=== PATIENT | female | born 1980 | race Caucasian/White ===

== ENCOUNTER → 2018-06-13 | Outpatient (CLI) | payer SELFPAY ==
[~2018-06-13] MED LIST: CATHETER FLUSH 10 ML SYR IV PRN; HOLD METFORMIN - RECEIVED CONTRAST 20 ML VIAL IV SCH; IOHEXOL 350 MG/ML 100 ML (OMNIPAQUE 350) VIAL IV ONE; NS 50 ML (IVPB) BAG IV ONE
[2018-06-13 09:56] LABS: CREATININE SERUM 0.57 MG/DL (0.60-1.30)
--- NOTE | 2018-06-13 11:50 | Diagnostic Imaging Report ---
PROCEDURE: CT abdomen and pelvis with and without contrast. TECHNIQUE: Precontrast acquisitions were acquired through the abdomen and pelvis. Multiple contiguous axial images were obtained through the abdomen and pelvis after the administration of intravenous contrast. Auto Exposure Controls were utilized during the CT exam to meet ALARA standards for radiation dose reduction. INDICATION: Right sided abdominal pain. COMPARISON: No prior studies are available for comparison. FINDINGS: The lung bases are clear. The liver demonstrates generalized low density consistent with hepatic steatosis. No discrete liver mass is seen. The gallbladder is surgically absent. Extrahepatic bile duct is prominent but likely owing to post cholecystectomy. The pancreas and spleen are unremarkable. No adrenal mass is identified. There is a 19 mm low-density in the left kidney suggestive of a cyst. No hydronephrosis is identified. Aorta is nonaneurysmal. No central retroperitoneal or mesenteric lymphadenopathy is seen. The small and large bowel loops appear to be normal in caliber. No obstruction is seen. The appendix is visualized in the right lower quadrant and has a normal appearance. There is no free fluid identified. There does appear to be mild diverticulosis of the sigmoid colon but no evidence of acute diverticulitis. The bladder is unremarkable. Uterus is surgically absent. No pelvic lymphadenopathy is seen. IMPRESSION: 1. Hepatic steatosis. 2. Small left renal cyst. 3. Uncomplicated diverticulosis. Dictated by: Dictated on workstation # [id number]
== END ==
LOC: RAD FS 08:09
PROVIDERS: ATTEND Nurse Practitioner
DX: K76.0 Fatty (change of) liver, not elsewhere classified (principal); K57.30 Diverticulosis of large intestine without perforation or abscess without bleeding; N28.1 Cyst of kidney, acquired; Z90.49 Acquired absence of other specified parts of digestive tract
CPT/HCPCS: 36415; 74178; 82565

== ENCOUNTER 2018-08-07 19:57 | Emergency (ER) | payer SELFPAY ==
[~2018-08-07] VITALS: Ht 154.9 cm; Wt 84.8 kg
[2018-08-07] MEDS ORDERED: ONDANSETRON 4 MG/2 ML (SDV) Z0FRAN IVP STA (20:34)
[2018-08-07 20:35] LABS: BILIRUBIN,URINE NEGATIVE (NEGATIVE); CLARITY,URINE CLEAR; COLOR,URINE YELLOW; GLUCOSE, URINE (UA) NEGATIVE (NEGATIVE); HCG,QUALITATIVE URINE NEGATIVE (NEGATIVE); KETONES,URINE NEGATIVE (NEGATIVE); LEUKOCYTE ESTERASE ,URINE NEGATIVE (NEGATIVE); NITRITE,URINE NEGATIVE (NEGATIVE); PROTEIN,URINE NEGATIVE (NEGATIVE); RBC,URINE RARE /HPF; UROBILINOGEN,URINE 0.2 MG/DL (NORMAL)
[2018-08-07 20:45] LABS: HEMATOCRIT 37 % (35-52); MEAN CORPUSCULAR HEMOGLOBIN 28 PG (25-34); MEAN CORPUSCULAR VOLUME 86 FL (80-99); WHITE BLOOD COUNT 9.9 10^3/uL (4.3-11.0)
[2018-08-07] MEDS ORDERED: NS IV 1000 ML 1,000 ML IV SCH (20:45)
[2018-08-07 20:46] LABS: BASOPHILS # (AUTO) 0.1 10^3/uL (0.0-0.1); BASOPHILS % (AUTO) 1 % (0-10); EOSINOPHILS # (AUTO) 0.4 10^3/uL (0.0-0.3); EOSINOPHILS % (AUTO) 4 % (0-10); LYMPHOCYTES # (AUTO) 3.8 X 10^3 (1.0-4.0); LYMPHOCYTES % (AUTO) 38 % (12-44); MEAN CORPUSCULAR HGB CONC 33 G/DL (32-36); MEAN PLATELET VOLUME 8.9 FL (7.4-10.4); MONOCYTES # (AUTO) 0.5 X 10^3 (0.0-1.0); MONOCYTES % (AUTO) 5 % (0-12); NEUTROPHILS # (AUTO) 5.2 X 10^3 (1.8-7.8); NEUTROPHILS % (AUTO) 53 % (42-75); PLATELET COUNT 297 10^3/uL (130-400); RED CELL DISTRIBUTION WIDTH 13.8 % (10.0-14.5)
[2018-08-07] MEDS ORDERED: SERT50TA2 PO (20:47)
[2018-08-07] MEDS ORDERED: DULA0.75 SQ (20:47)
[2018-08-07 20:55] LABS: ALKALINE PHOSPHATASE 84 U/L (40-136); BILIRUBIN,TOTAL 0.2 MG/DL (0.1-1.0); BUN/CREATININE RATIO 19; CALCIUM 9.5 MG/DL (8.5-10.1); CARBON DIOXIDE 24 MMOL/L (21-32); CHLORIDE 101 MMOL/L (98-107); CREATININE SERUM 0.62 MG/DL (0.60-1.30); GFR ESTIMATED > 60; GLUCOSE 185 MG/DL (70-105); POTASSIUM 3.7 MMOL/L (3.6-5.0); SODIUM 140 MMOL/L (135-145)
[2018-08-07 20:56] LABS: ALANINE AMINOTRANSFERASE 19 U/L (0-55); ALBUMIN 4.5 GM/DL (3.2-4.5); LIPASE 22 U/L (8-78); TOTAL PROTEIN 7.5 GM/DL (6.4-8.2)
--- NOTE | 2018-08-07 21:05 | ED Abdominal Pain ---
General Chief Complaint: Abdominal/GI Problems Stated Complaint: NAUSEA, VOMITING, RT RIB PAIN, DIZZY Nursing Triage Note: PATIENT AMBULATORY TO ER WITH COMPLAINT OF RIGHT QUADRANT ABDOMINAL PAIN THAT BEGAN AT 08:00 AM TODAY. PATIENT DESCRIBES THE PAIN A BURNING/STABBING PAIN TO RIGHT ABDOMEN THAT RADIATES INTO THE RIGHT UPPER BACK/SHOULDER AREA. PATIENT HAS HAD NAUSEA AND VOMITING AND IS COMPLAINING OF DIZZINESS. Sepsis Screen: No Definite Risk Source of Information: Patient History of Present Illness Date Seen by Provider: August 07, 2018 Time Seen by Provider: 21:05 Initial Comments 38-year-old female presenting with complaints of right-sided abdominal pain. She states the pain radiates up into her shoulder and arm. She has had severe waves of pain at times. She also is having nausea and vomiting that started around 5:30 tonight. She states that she has some chronic GI issues and her bowel movements go from diarrhea to constipation and back. She also has early satiety. She has been having increased pain that was not improving with Tylenol or ibuprofen over the last few days. And then the pain was more severe this evening. She denies any fever or chills. She states that she also feels dizziness and lightheaded at times. She reports having similar pain in the past few months but not been able to find an answer for cause of the pain. Also her pain had not been as severe as it is today. Allergies and Home Medications Allergies Coded Allergies: levofloxacin (Unverified Adverse Reaction, Intermediate, VOMITS BLOOD, 08/07/18) Uncoded Allergies: DEMEROL (Allergy, Severe, HIVES, 08/07/18) Home Medications Dulaglutide 0.75 Mg/0.5 Ml Pen.injctr, 0.75 MG SQ DAILY, (Reported) Hydrocodone Bit/Acetaminophen 1 Tab Tab, 1 EACH PO Q6H PRN for PAIN-MODERATE Prescribed by: GARO Ramirez ENNYDIART on 08/07/182240 Ondansetron 4 Mg Tab.rapdis, 4 MG PO Q6H PRN for NAUSEA/VOMITING Prescribed by: GARO FISHMANRT on 08/07/182240 Sertraline HCl 50 Mg Tablet, 50 MG PO DAILY, (Reported) Patient Home Medication List Home Medication List Reviewed: Yes Review of Systems Review of Systems Constitutional: No chills; dizziness; No fever; malaise EENTM: No Symptoms Reported Respiratory: No Symptoms Reported Cardiovascular: No Symptoms Reported Gastrointestinal: See HPI, Abdominal Pain, Diarrhea (pulse pain between diarrhea and constipation), Nausea, Vomiting Genitourinary: Denies Drainage, Denies Frequency; Flank Pain; Denies Hematuria Musculoskeletal: other (right flank pain going up into the shoulder and arm) Skin: rash (having areas of rash that her itching and then bruise up on her. This is been going on for the last week or so.) Psychiatric/Neurological: No Symptoms Reported Endocrine: No Symptoms Reported Past Gvhatsu-Zwgjsi-Ajfctp Hx Past Med/Social Hx: Reviewed Nursing Past Med/Soc Hx Patient Social History Alcohol Use: Denies Use Recreational Drug Use: No Smoking Status: Current Everyday Smoker Type Used: Cigarettes 2nd Hand Smoke Exposure: Yes Recent Foreign Travel: No Contact w/Someone Who Travel: No Recent Infectious Disease Expo: No Recent Hopitalizations: No Seasonal Allergies Seasonal Allergies: No Past Medical History Surgeries: Yes Abdominal, Gallbladder, Hysterectomy, 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 Respiratory: No 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 (ENLARGED RIGHT HEART-PFO) REPLACER History: Hysterectomy, 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 Genitourinary: Yes (RIGHT KIDNEY DEFORMITY) Kidney Stones Gastrointestinal: Yes (ENLARGED LIVER) Diverticulosis Endocrine: Yes Diabetes, Non-Insulin dep HEENT: No Cancer: Yes Cervical Did You Recieve Any Treatments: No What Type of Treatment Did You: Surgical Intervention Psychosocial: No Integumentary: No Blood Disorders: No Physical Exam Vital Signs Vital Signs - First Documented 08/07/18 20:07 Temp 96.5 Pulse 90 Resp 18 B/P (MAP) 123/67 (85) Pulse Ox 97 O2 Delivery Room Air Capillary Refill : Less Than 3 Seconds Height/Weight/BMI Height: 5'1.00" Weight: 187lbs. oz. 84.786946ki; BMI Method:Actual General Appearance: WD/WN, no apparent distress HEENT: normal ENT inspection, pharynx normal Neck: non-tender, supple Respiratory: chest non-tender, lungs clear, normal breath sounds, no respiratory distress, no accessory muscle use Cardiovascular: normal peripheral pulses, regular rate, rhythm Gastrointestinal: soft, no pulsatile mass, abnormal bowel sounds (hyperactive), guarding; No rebound; tenderness (right upper quadrant) Rectal: deferred Extremities: normal range of motion, non-tender, normal inspection, no pedal edema, no calf tenderness Back: no CVA tenderness Neurologic/Psychiatric: alert, normal mood/affect, oriented x 3 Skin: normal color, warm/dry Progress/Results/Core Measures Results/Orders Lab Results Laboratory Tests Test 08/07/18 20:18 08/07/18 20:27 Range/Units Urine Color YELLOW Urine Clarity CLEAR Urine pH 6.0 5-9 Urine Specific Ruby <1.005 1.016-1.022 Urine Protein NEGATIVE NEGATIVE Urine Glucose (UA) NEGATIVE NEGATIVE Urine Ketones NEGATIVE NEGATIVE Urine Nitrite NEGATIVE NEGATIVE Urine Bilirubin NEGATIVE NEGATIVE Urine Urobilinogen 0.2 NORMAL MG/DL Urine Leukocyte Esterase NEGATIVE NEGATIVE Urine RBC (Auto) TRACE H NEGATIVE Urine RBC RARE /HPF Urine WBC NONE /HPF Urine Squamous Epithelial Cells 2-5 /HPF Urine Crystals NONE /LPF Urine Bacteria NONE /HPF Urine Casts NONE /LPF Urine Mucus NEGATIVE /LPF Urine Culture Indicated NO Urine Test NEGATIVE NEGATIVE White Blood Count 9.9 4.3-11.0 10^3/uL Red Blood Count 4.25 L 4.35-5.85 10^6/uL Hemoglobin 12.0 11.5-16.0 G/DL Hematocrit 37 35-52 % Mean Corpuscular Volume 86 80-99 FL Mean Corpuscular Hemoglobin 28 25-34 PG Mean Corpuscular Hemoglobin Concent 33 32-36 G/DL Red Cell Distribution Width 13.8 10.0-14.5 % Platelet Count 297 130-400 10^3/uL Mean Platelet Volume 8.9 7.4-10.4 FL Neutrophils (%) (Auto) 53 42-75 % Lymphocytes (%) (Auto) 38 12-44 % Monocytes (%) (Auto) 5 0-12 % Eosinophils (%) (Auto) 4 0-10 % Basophils (%) (Auto) 1 0-10 % Neutrophils # (Auto) 5.2 1.8-7.8 X 10^3 Lymphocytes # (Auto) 3.8 1.0-4.0 X 10^3 Monocytes # (Auto) 0.5 0.0-1.0 X 10^3 Eosinophils # (Auto) 0.4 H 0.0-0.3 10^3/uL Basophils # (Auto) 0.1 0.0-0.1 10^3/uL Sodium Level 140 135-145 MMOL/L Potassium Level 3.7 3.6-5.0 MMOL/L Chloride Level 101 98-107 MMOL/L Carbon Dioxide Level 24 21-32 MMOL/L Anion Gap 15 H 5-14 MMOL/L Blood Urea Nitrogen 12 7-18 MG/DL Creatinine 0.62 0.60-1.30 MG/DL Estimat Glomerular Filtration Rate > 60 BUN/Creatinine Ratio 19 Glucose Level 185 H 70-105 MG/DL Calcium Level 9.5 8.5-10.1 MG/DL Corrected Calcium 9.1 8.5-10.1 MG/DL Total Bilirubin 0.2 0.1-1.0 MG/DL Aspartate Amino Transf (AST/SGOT) 16 5-34 U/L Alanine Aminotransferase (ALT/SGPT) 19 0-55 U/L Alkaline Phosphatase 84 40-136 U/L Total Protein 7.5 6.4-8.2 GM/DL Albumin 4.5 3.2-4.5 GM/DL Lipase 22 8-78 U/L My Orders Orders - GARO PEMBERTON MD Ua Culture If Indicated (08/07/18 20:17) Hcg,Qualitative Urine (08/07/18 20:17) Comprehensive Metabolic Panel (08/07/18 20:34) Lipase (08/07/18 20:34) Ed Iv/Invasive Line Start (08/07/18 20:34) Cbc With Automated Diff (08/07/18 20:34) Ns Iv 1000 Ml (Sodium Chloride 0.9%) (08/07/18 20:45) Ondansetron Injection (Zofran Injectio (08/07/18 20:34) Ketorolac Injection (Toradol Injection) (08/07/18 21:30) Ct Abdomen/Pelvis W (08/07/18 21:18) Iohexol Injection (Omnipaque 350 Mg/Ml 1 (08/07/18 21:30) Received Contrast (Hold Metformin- Contr (08/07/18 21:30) Ns (Ivpb) (Sodium Chloride 0.9% Ivpb Bag (08/07/18 21:30) Morphine Injection (Morphine Injection (08/07/18 22:31) Rx-Ondansetron Po (Rx-Zofran Po) (08/07/18 22:45) Rx-Hydrocodone/Apap 5-325 Mg (Rx-Vicodin (08/07/18 22:45) Medications Given in ED Current Medications Medications Dose Ordered Sig/Tory Route Start Time Stop Time Status Last Admin Dose Admin Acetaminophen/ Hydrocodone Bitart 1 ea Q6H PRN PO 08/07/18 22:45 08/07/18 23:11 DC 08/07/18 22:44 1 EA Iohexol 100 ml ONCE ONCE IV 08/07/18 21:30 08/07/18 21:32 DC 08/07/18 21:36 100 ML Ketorolac Tromethamine 30 mg ONCE ONCE IVP 08/07/18 21:30 08/07/18 21:32 DC 08/07/18 21:27 30 MG Ondansetron HCl 4 mg Q6H PRN PO 08/07/18 22:45 08/07/18 23:11 DC 08/07/18 22:43 4 MG Sodium Chloride 100 ml ONCE ONCE IV 08/07/18 21:30 08/07/18 21:32 DC 08/07/18 21:36 100 ML Vital Signs/I&O 08/07/18 08/07/18 20:07 22:55 Temp 96.5 96.9 Pulse 90 88 Resp 18 16 B/P (MAP) 123/67 (85) 105/69 (81) Pulse Ox 97 98 O2 Delivery Room Air Room Air 08/08/18 00:00 Intake Total 1000 ml Balance 1000 ml Blood Pressure Mean: 85 Progress Progress Note #1: Progress Note Check basic labs and a CT scan of the abdomen and pelvis to further evaluate what might be causing her pain. Try Toradol and IV fluids for pain. Zofran for nausea. Progress Note #2: Progress Note On recheck she states that the nausea is better after the Zofran. The pain was still the same after the Toradol and IV fluid. Reviewed that her labs do not show any acute significant abnormality. Her CBC and chemistry are all stable. Her CT scan did not show any acute pathology to explain her pain. Counseled on follow-up and return precautions. We'll try a few pain pills and have her take Zofran as needed for nausea. Check back with the clinic about possibly getting ultrasound or scope of her stomach and colon to try and further delineate her source of pain. Diagnostic Imaging Diagonstic Imaging: CT Plain Films/CT/US/NM/MRI: abdomen, pelvis Comments Impression: No acute findings to explain patient's pain. Indeterminate left renal and left adrenal gland lesions for which follow-up is recommended. Read by Dr. Cabrera Tan at [phone] and faxed at [phone] Reviewed: Reviewed [place] Study Departure Impression Primary Impression: Right upper quadrant abdominal pain Additional Impression: Nausea and vomiting Qualified Codes: R11.14 - Bilious vomiting Disposition: 01 HOME, SELF-CARE Condition: Stable Departure-Patient Inst. Decision time for Depature: 22:36 Referrals: [facility] (PCP) Primary Care Physician ANKIT WATSON (Family) Primary Care Physician Patient Instructions: Acute Abdomen (Belly Pain), Adult (DC), Flank Pain (DC), Nausea and Vomiting, Adult (DC) Add. Discharge Instructions: Try to stay well hydrated Take medicine for pain as directed to help with your abdominal pain radiating to your shoulder and arm. use the nausea medicine to help keep your stomach settled. Check back with clinic for continued pain/problems and they may need you to have an ultrasound of your liver and abdomen or Colonoscopy/EGD to look for other reasons for your pain. All discharge instructions reviewed with patient and/or family. Voiced understanding. Scripts Ondansetron (Ondansetron Odt) 4 Mg Tab.rapdis 4 MG PO Q6H PRN for NAUSEA/VOMITING for 3 Days, #12 TAB 0 Refills Prov: GARO PEMBERTON MD 08/07/18 Hydrocodone Bit/Acetaminophen (Hydrocodone/Acetaminophen 5/325mg Tablet) 1 Tab Tab 1 EACH PO Q6H PRN for PAIN-MODERATE MDD 10 for 5 Days, #20 TAB 0 Refills Prov: GARO PEMBERTON MD 08/07/18 GARO PEMBERTON MD August 07, 2018 21:05
[2018-08-07] MEDS ORDERED: NS 100 ML (IVPB) BAG IV ONE (21:30)
[2018-08-07] MEDS ORDERED: KETOROLAC 30 MG/ML VIAL IVP ONE (21:30)
[2018-08-07] MEDS ORDERED: HOLD METFORMIN - RECEIVED CONTRAST 20 ML VIAL IV SCH (21:30)
[2018-08-07] MEDS ORDERED: IOHEXOL 350 MG/ML 100 ML (OMNIPAQUE 350) VIAL IV ONE (21:30)
[2018-08-07] MEDS ORDERED: morphine INJ 10 MG/ML 1ML (SYR OR VIAL) IVP STA (22:31)
[2018-08-07] MEDS ORDERED: ACHD5005 PO (22:41)
[2018-08-07] MEDS ORDERED: ONDA4TAB11 PO (22:41)
[2018-08-07] MEDS ORDERED: RX-ONDANSETRON 4 MG ODT (ZOFRAN) PPK #4 PO PRN (22:45)
[2018-08-07] MEDS ORDERED: RX-HYDROCODONE/APAP 5/325 MG #4 TAB PK PO PRN (22:45)
[2018-08-07 22:55] VITALS: BP 105/69
--- NOTE | 2018-08-07 22:56 | NUR ---
PATIENT SENT HOME WITH ZOFRAN ODT X 4 TABLETS AND HYDROCODONE/APAP X 4 TABLETS. PATIENT GIVEN WRITTEN AND VERBAL INSTRUCTIONS ON HOW TO TAKE MEDICATIONS.
--- NOTE | 2018-08-08 07:20 | Diagnostic Imaging Report ---
INDICATION: Right upper quadrant abdominal pain. CT of the abdomen and pelvis obtained with IV contrast bolus with comparison to 06/13/2018. FINDINGS: The visualized portions of the lung bases are clear. There were no pleural fluid collections. There is no free intraperitoneal air. The liver shows mild low-density change compatible with fatty infiltration. There is no focal liver lesion. Patient has had prior cholecystectomy. The spleen and pancreas appear normal. The left adrenal gland shows a small 12 mm nodule which appeared similar on the previous study. Right adrenal gland appears normal. Kidneys bilaterally show no hydronephrosis or overt calculi. There is a small cyst in the left kidney which appears unchanged from the prior study. There is no retroperitoneal mass or adenopathy. There is no ascites or abnormal fluid collection. Patient has had prior hysterectomy. There is no overt bowel obstruction or focal bowel wall thickening. The appendix appears normal. IMPRESSION: No acute process in the abdomen or pelvis. Small left adrenal nodule is stable compared to the prior study. Left renal cyst is unchanged. Dictated by: Dictated on workstation # [id number]
== END 2018-08-07 22:55 | disposition home or self-care (01) ==
LOC: EDUNIT# 19:57 → ER FS 19:58
DX: R10.31 Right lower quadrant pain (principal); R11.2 Nausea with vomiting, unspecified; E11.9 Type 2 diabetes mellitus without complications; F17.210 Nicotine dependence, cigarettes, uncomplicated; Z88.1 Allergy status to other antibiotic agents; Z85.41 Personal history of malignant neoplasm of cervix uteri; Z87.19 Personal history of other diseases of the digestive system; Z88.8 Allergy status to other drugs, medicaments and biological substances; Z98.890 Other specified postprocedural states; Z98.51 Tubal ligation status; Z90.710 Acquired absence of both cervix and uterus; Z87.442 Personal history of urinary calculi
CPT/HCPCS: 36415; 74177; 80053; 81000; 83690; 84703; 85025; 96361; 96374; 96375

== ENCOUNTER 2018-09-18 20:23 | Emergency (ER) | payer SELFPAY ==
[~2018-09-18] VITALS: Ht 154.9 cm; Wt 82.6 kg
[~2018-09-18 20:23] MED LIST changes: +ACHD5005 PO; -CATHETER FLUSH 10 ML SYR IV PRN; +DULA0.75 SQ; -HOLD METFORMIN - RECEIVED CONTRAST 20 ML VIAL IV SCH; -IOHEXOL 350 MG/ML 100 ML (OMNIPAQUE 350) VIAL IV ONE; -NS 50 ML (IVPB) BAG IV ONE; +ONDA4TAB11 PO; +SERT50TA2 PO
--- OUTSIDE RECORDS SUMMARY | 2018-09-18 20:27 | XMS REPORT | Continuity of Care Document ---
Author Organization Unknown Address Unknown Allergies Active Description Code Type Severity Reaction Onset Reported/Identified Relationship to Patient Clinical Status Yes No Allergy Information Available [id number] Drug Allergy Unknown N/A 06/13/2018 Yes DEMEROL DEMEROL Severe HIVES 08/07/2018 Yes levofloxacin [id number] Drug Allergy Moderate VOMITS BLOOD 08/07/2018 Yes hydrocodone [id number] Drug Allergy Mild MIGRAINE HEADAC 08/07/2018 Medications There is no data. 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/O PERFORATION OR AB 06/16/2018 ANKIT WATSON [employer] FARMER Ot K76.0 FATTY (CHANGE OF) LIVER, NOT ELSEWHERE C 06/16/2018 CHAVA WATSONA Becki [employer]UCK FARMER Ot N28.1 CYST OF KIDNEY, ACQUIRED 06/16/2018 CHAVA WATSONA L [employer] FARMER Ot Z90.49 ACQUIRED ABSENCE OF OTHER SPECIFIED PART 06/17/2018 CHAVA WATSONA L [employer] FARMER Ot K57.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 W/O PERFORATION OR AB 06/17/2018 CHAVA WATSONA Becki [employer] FARMER Ot K76.0 FATTY (CHANGE OF) LIVER, NOT ELSEWHERE C 06/17/2018 CHAVA WATSONA Becki [employer]UCK FARMER Ot N28.1 CYST OF KIDNEY, ACQUIRED 06/17/2018 RACHELLETACHAVA ALVARADOA L [employer] FARMER Ot Z90.49 ACQUIRED ABSENCE OF OTHER SPECIFIED PART 06/18/2018 CHAVA WATSONA Becki [employer]UCK FARMER Ot K57.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 W/O PERFORATION OR AB 06/18/2018 CHAVA WATSONA L [employer] FARMER Ot K76.0 FATTY (CHANGE OF) LIVER, NOT ELSEWHERE C 06/18/2018 KELLSTADT, ANKIT L [employer] FARMER Ot N28.1 CYST OF KIDNEY, ACQUIRED 06/18/2018 KELLSTADT, ANKIT L [employer] FARMER Ot Z90.49 ACQUIRED ABSENCE OF OTHER SPECIFIED PART 06/18/2018 KELLSTADT, ANKIT L [employer]UCK FARMER Ot K57.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 W/O PERFORATION OR AB 06/18/2018 KELLSTADT, ANKIT L [employer] FARMER Ot K76.0 FATTY (CHANGE OF) LIVER, NOT ELSEWHERE C 06/18/2018 KELLSTADT ANKIT L [employer] FARMER Ot N28.1 CYST OF KIDNEY, ACQUIRED 06/18/2018 KELLSTADT, ANKIT L [employer] FARMER Ot Z90.49 ACQUIRED ABSENCE OF OTHER SPECIFIED PART 08/07/2018 KELLSTADT, ANKIT L TRUCK FARMER Ot K57.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 W/O PERFORATION OR AB 08/07/2018 KELLSTADT, ANKIT L [employer] FARMER Ot K76.0 FATTY (CHANGE OF) LIVER, NOT ELSEWHERE C 08/07/2018 KELLSTADT, ANKIT L [employer] FARMER Ot N28.1 CYST OF KIDNEY, ACQUIRED 08/07/2018 KELLSTADT, ANKIT L [employer] FARMER Ot Z90.49 ACQUIRED ABSENCE OF OTHER SPECIFIED PART 08/07/2018 KELLSTADT, ANKIT L TRUCK FARMER Ot K57.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 W/O PERFORATION OR AB 08/07/2018 KELLSTADT, ANKIT L [employer] FARMER Ot K76.0 FATTY (CHANGE OF) LIVER, NOT ELSEWHERE C 08/07/2018 KELLSTADT ANKIT L [employer] FARMER Ot N28.1 CYST OF KIDNEY, ACQUIRED 08/07/2018 KELLSTADT, ANKIT L [employer] FARMER Ot Z90.49 ACQUIRED ABSENCE OF OTHER SPECIFIED PART 08/11/2018 GARO PEMBERTON MD, Ot E11.9 TYPE 2 DIABETES MELLITUS WITHOUT COMPLIC 08/11/2018 GARO PEMBERTON MD, Ot F17.210 NICOTINE DEPENDENCE, CIGARETTES, UNCOMPL 08/11/2018 GARO PEMBERTON MD, Ot R10.31 RIGHT LOWER QUADRANT PAIN 08/11/2018 GARO PEMBERTON MD, Ot R11.2 NAUSEA WITH VOMITING, UNSPECIFIED 08/11/2018 GARO PEMBERTON MD, Ot Z85.41 PERSONAL HISTORY OF MALIGNANT NEOPLASM O 08/11/2018 GARO PEMBERTON MD, Ot Z87.19 PERSONAL HISTORY OF OTHER DISEASES OF TH 08/11/2018 GARO PEMBERTON MD, Ot Z87.442 PERSONAL HISTORY OF URINARY CALCULI 08/11/2018 GARO PEMBERTON MD, Ot Z88.1 ALLERGY STATUS TO OTHER ANTIBIOTIC AGENT 08/11/2018 GARO PEMBERTON MD, Ot Z88.8 ALLERGY STATUS TO OTH DRUG/MEDS/BIOL SUB 08/11/2018 GARO PEMBERTON MD, Ot Z90.710 ACQUIRED ABSENCE OF BOTH CERVIX AND UTER 08/11/2018 GARO PEMBERTON MD, Ot Z98.51 TUBAL LIGATION STATUS 08/11/2018 GARO PEMBERTON MD, Ot Z98.890 OTHER SPECIFIED POSTPROCEDURAL STATES Procedures There is no data. Results Test Result Range Serum or plasma creatinine measurement with calculation of estimated glomerular filtration rate - 06/13/18 09:25 Serum or plasma creatinine measurement (mass/volume) 0.57 mg/dL 0.60-1.30 Complete urinalysis with reflex to culture - 08/07/18 20:18 Urine color determination YELLOW NRG Urine clarity determination CLEAR NRG Urine pH measurement by test strip 6.0 5-9 Specific gravity of urine by test strip < 1.016-1.022 Urine protein assay by test strip, semi-quantitative NEGATIVE NEGATIVE Urine glucose detection by automated test strip NEGATIVE NEGATIVE Erythrocytes detection in urine sediment by light microscopy TRACE NEGATIVE Urine ketones detection by automated test strip NEGATIVE NEGATIVE Urine nitrite detection by test strip NEGATIVE NEGATIVE Urine total bilirubin detection by test strip NEGATIVE NEGATIVE Urine urobilinogen measurement by automated test strip (mass/volume) 0.2 mg/dL NORMAL Urine leukocyte esterase detection by dipstick NEGATIVE NEGATIVE Automated urine sediment erythrocyte count by microscopy (number/high power field) RARE NRG Automated urine sediment leukocyte count by microscopy (number/high power field) NONE NRG Bacteria detection in urine sediment by light microscopy NONE NRG Squamous epithelial cells detection in urine sediment by light microscopy 2-5 NRG Crystals detection in urine sediment by light microscopy NONE NRG Casts detection in urine sediment by light microscopy NONE NRG Mucus detection in urine sediment by light microscopy NEGATIVE NRG Complete urinalysis with reflex to culture NO NRG Urine beta human chorionic gonadotropin (hCG) measurement - 08/07/18 20:18 Urine beta human chorionic gonadotropin (hCG) measurement NEGATIVE NEGATIVE Complete blood count (CBC) with automated white blood cell (WBC) differential - 08/07/18 20:27 Blood leukocytes automated count (number/volume) 9.9 10*3/uL 4.3-11.0 Blood erythrocytes automated count (number/volume) 4.25 10*6/uL 4.35-5.85 Venous blood hemoglobin measurement (mass/volume) 12.0 g/dL 11.5-16.0 Blood hematocrit (volume fraction) 37 % 35-52 Automated erythrocyte mean corpuscular volume 86 [foz_us] 80-99 Automated erythrocyte mean corpuscular hemoglobin (mass per erythrocyte) 28 pg 25-34 Automated erythrocyte mean corpuscular hemoglobin concentration measurement (mass/volume) 33 g/dL 32-36 Automated erythrocyte distribution width ratio 13.8 % 10.0- 14.5 Automated blood platelet count (count/volume) 297 10*3/uL 130-400 Automated blood platelet mean volume measurement 8.9 [foz_us] 7.4-10.4 Automated blood neutrophils/100 leukocytes 53 % 42-75 Automated blood lymphocytes/100 leukocytes 38 % 12-44 Blood monocytes/100 leukocytes 5 % 0-12 Automated blood eosinophils/100 leukocytes 4 % 0-10 Automated blood basophils/100 leukocytes 1 % 0-10 Blood neutrophils automated count (number/volume) 5.2 10*3 1.8-7.8 Blood lymphocytes automated count (number/volume) 3.8 10*3 1.0-4.0 Blood monocytes automated count (number/volume) 0.5 10*3 0.0- 1.0 Automated eosinophil count 0.4 10*3/uL 0.0-0.3 Automated blood basophil count (count/volume) 0.1 10*3/uL 0.0-0.1 Comprehensive metabolic panel - 08/07/18 20:27 Serum or plasma sodium measurement (moles/volume) 140 mmol/L 135-145 Serum or plasma potassium measurement (moles/volume) 3.7 mmol/L 3.6-5.0 Serum or plasma chloride measurement (moles/volume) 101 mmol/L 98-107 Carbon dioxide 24 mmol/L 21-32 Serum or plasma anion gap determination (moles/volume) 15 mmol/L 5-14 Serum or plasma urea nitrogen measurement (mass/volume) 12 mg/dL 7-18 Serum or plasma creatinine measurement (mass/volume) 0.62 mg/dL 0.60-1.30 Serum or plasma urea nitrogen/creatinine mass ratio 19 NRG Serum or plasma creatinine measurement with calculation of estimated glomerular filtration rate > NRG Serum or plasma glucose measurement (mass/volume) 185 mg/dL 70-105 Serum or plasma calcium measurement (mass/volume) 9.5 mg/dL 8.5-10.1 Serum or plasma total bilirubin measurement (mass/volume) 0.2 mg/dL 0.1-1.0 Serum or plasma alkaline phosphatase measurement (enzymatic activity/volume) 84 U/L 40-136 Serum or plasma aspartate aminotransferase measurement (enzymatic activity/volume) 16 U/L 5-34 Serum or plasma alanine aminotransferase measurement (enzymatic activity/volume) 19 U/L 0-55 Serum or plasma protein measurement (mass/volume) 7.5 g/dL 6.4-8.2 Serum or plasma albumin measurement (mass/volume) 4.5 g/dL 3.2-4.5 CALCIUM CORRECTED 9.1 mg/dL 8.5-10.1 Lipase - 08/07/18 20:27 Lipase 22 U/L 8-78 Encounters ACCT No. Visit Date/Time Discharge Status Pt. Type Provider Facility Loc./Unit Complaint [id number] 08/07/2018 19:58:00 08/07/2018 22:55:00 DIS Outpatient GARO PEMBERTON MD [facility] ER FS NAUSEA, VOMITING, RT RIB PAIN, DIZZY [id number] 06/13/2018 08:09:00 06/13/2018 23:59:59 CLS Outpatient ANKIT WATSON [facility] RAD FS ABD PAIN
--- NOTE | 2018-09-18 20:39 | ED Cardiac General ---
History of Present Illness General Chief Complaint: Chest Pain Source: patient Exam Limitations: no limitations History of Present Illness Date Seen by Provider: Sep 18, 2018 Time Seen by Provider: 20:30 Initial Comments The patient is a very pleasant 38-year-old female who presents via EMS for evaluation of chest pressure. She states this started at 1600 (4.5 hrs ago) while she was driving her grandchildren home. She states this was not particularly stressful. She took a full strength aspirin earlier this morning as she normally does. She reports being told the past that she had a "hole in her heart" as well as "part of my heart is enlarged". She has never had any stents placed and has never felt a stress test. She reports that she has had some nausea to go along with the pain and reports radiation to her back and right shoulder. She is diabetic and reports her sugars have been in the 120-140 range lately. She is alert and oriented 4, calm, appears to be no distress this time. JAZMÍN: 1 (low risk) HEART: 2 (low risk) Timing/Duration: 4-6 hours Severity: moderate Location: substernal Prior CP/Workup: stress test (passed) Modifying Factors: improves with breathing (makes pain worse), improves with lying down (makes dizzyness better) ASA po DOMESTIC VIOLENCE ADVOCATE: Yes Associated Systoms: Nausea/Vomiting, Weakness Allergies and Home Medications Allergies Coded Allergies: levofloxacin (Unverified Adverse Reaction, Intermediate, VOMITS BLOOD, 08/07/18) Uncoded Allergies: DEMEROL (Allergy, Severe, HIVES, 08/07/18) Home Medications Dulaglutide 0.75 Mg/0.5 Ml Pen.injctr, 0.75 MG SQ DAILY, (Reported) Hydrocodone Bit/Acetaminophen 1 Tab Tab, 1 EACH PO Q6H PRN for PAIN-MODERATE Prescribed by: GARO Ramirez ENYART on 08/07/182240 Ondansetron 4 Mg Tab.rapdis, 4 MG PO Q6H PRN for NAUSEA/VOMITING Prescribed by: GARO JARRETTYART on 08/07/182240 Sertraline HCl 50 Mg Tablet, 50 MG PO DAILY, (Reported) Patient Home Medication List Home Medication List Reviewed: Yes Review of Systems Review of Systems Constitutional: no symptoms reported EENTM: No Symptoms Reported Respiratory: Shortness of Air Cardiovascular: Chest Pain (described as pressure) Genitourinary: No Symptoms Reported Musculoskeletal: no symptoms reported Skin: no symptoms reported Psychiatric/Neurological: No Symptoms Reported Endocrine: No Symptoms Reported Hematologic/Lymphatic: No Symptoms Reported All Other Systems Reviewed Negative Unless Noted: Yes Past Hyhmogc-Hnelcv-Uevfhz Hx Past Med/Social Hx: Reviewed Nursing Past Med/Soc Hx Patient Social History Type Used: Cigarettes 2nd Hand Smoke Exposure: Yes Recent Foreign Travel: No Contact w/Someone Who Travel: No Recent Hopitalizations: No Seasonal Allergies Seasonal Allergies: No Past Medical History Surgeries: Yes Abdominal, Gallbladder, Hysterectomy, 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 Respiratory: No 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 (ENLARGED RIGHT HEART-PFO) 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 oz. 84.261461ih; BMI Method:Actual General Appearance: No Apparent Distress, WD/WN HEENT: PERRL/EOMI, Pharynx Normal Neck: Full Range of Motion, Normal Inspection, Non Tender Respiratory: Chest Non Tender, Lungs Clear, Normal Breath Sounds, No Accessory Muscle Use, No Respiratory Distress Cardiovascular: Regular Rate, Rhythm, No Edema, No JVD, No Murmur, Normal Peripheral Pulses Gastrointestinal: Normal Bowel Sounds, No Organomegaly, No Pulsatile Mass, Non Tender, Soft Extremity: Normal Capillary Refill, Normal Inspection, Non Tender, No Calf Tenderness Neurologic/Psychiatric: Alert, Oriented x3, No Motor/Sensory Deficits, Normal 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, 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 Skin: Normal Color, Warm/Dry Lymphatic: No Adenopathy Progress/Results/Core Measures Results/Orders Lab Results Laboratory Tests Test 09/18/18 20:26 Range/Units White Blood Count 12.7 H 4.3-11.0 10^3/uL Red Blood Count 4.20 L 4.35-5.85 10^6/uL Hemoglobin 12.0 11.5-16.0 G/DL Hematocrit 36 35-52 % Mean Corpuscular Volume 86 80-99 FL Mean Corpuscular Hemoglobin 29 25-34 PG Mean Corpuscular Hemoglobin Concent 33 32-36 G/DL Red Cell Distribution Width 13.3 10.0-14.5 % Platelet Count 334 130-400 10^3/uL Mean Platelet Volume 8.9 7.4-10.4 FL Neutrophils (%) (Auto) 60 42-75 % Lymphocytes (%) (Auto) 31 12-44 % Monocytes (%) (Auto) 4 0-12 % Eosinophils (%) (Auto) 5 0-10 % Basophils (%) (Auto) 1 0-10 % Neutrophils # (Auto) 7.6 1.8-7.8 X 10^3 Lymphocytes # (Auto) 4.0 1.0-4.0 X 10^3 Monocytes # (Auto) 0.5 0.0-1.0 X 10^3 Eosinophils # (Auto) 0.6 H 0.0-0.3 10^3/uL Basophils # (Auto) 0.1 0.0-0.1 10^3/uL D-Dimer 0.33 0.00-0.49 UG/ML Sodium Level 141 135-145 MMOL/L Potassium Level 4.0 3.6-5.0 MMOL/L Chloride Level 99 98-107 MMOL/L Carbon Dioxide Level 25 21-32 MMOL/L Anion Gap 17 H 5-14 MMOL/L Blood Urea Nitrogen 13 7-18 MG/DL Creatinine 0.70 0.60-1.30 MG/DL Estimat Glomerular Filtration Rate > 60 BUN/Creatinine Ratio 19 Glucose Level 144 H 70-105 MG/DL Calcium Level 9.9 8.5-10.1 MG/DL Corrected Calcium 9.6 8.5-10.1 MG/DL Magnesium Level 2.0 1.8-2.4 MG/DL Total Bilirubin 0.2 0.1-1.0 MG/DL Aspartate Amino Transf (AST/SGOT) 19 5-34 U/L Alanine Aminotransferase (ALT/SGPT) 19 0-55 U/L Alkaline Phosphatase 77 40-136 U/L Myoglobin < 21.0 10.0-92.0 NG/ML Troponin I < 0.30 <0.30 NG/ML Pro-B-Type Natriuretic Peptide 39.1 <75.0 PG/ML Total Protein 7.5 6.4-8.2 GM/DL Albumin 4.4 3.2-4.5 GM/DL My Orders Orders - HORTENSIA RABAGO DO Ekg Tracing (09/18/18 20:26) Cbc With Automated Diff (09/18/18 20:32) Magnesium (09/18/18 20:32) Chest 1 View Ap/Pa Only (09/18/18 20:32) Comprehensive Metabolic Panel (09/18/18 20:32) Myoglobin Serum (09/18/18 20:32) O2 (09/18/18 20:32) Monitor-Rhythm Ecg Trace Only (09/18/18 20:32) Ed Iv/Invasive Line Start (09/18/18 20:32) Troponin I (09/18/18 20:32) Probnp Fs (09/18/18 20:32) Fibrin Degradation Products (09/18/18:32) Vital Signs/I&O 09/18/18 09/18/18 20:23 20:23 Temp 98.7 Pulse 97 Resp 20 B/P (MAP) 109/66 (80) Pulse Ox 95 O2 Delivery Room Air Room Air Progress Progress Note : Progress Note @2154 - Patient and her daughter updated on lab and imaging results. The patient now admits to me that she has been doing a lot of housework including moving things in the garage and other physical labor. While the patient has very low risk I did offer to observe her overnight because she is still having some discomfort but she declines. As the initial troponin was a foreign half hour troponin no need to repeat the troponin at this time and the patient agrees. Advised patient to follow up with her PCP in the next 1-2 days. Advised patient to continue taking her aspirin at home. Comment @2025 - Normal sinus rhythm, rate of 83, normal axis, no acute ischemic findings noted, no STEMI, reviewed and interpreted by myself Diagnostic Imaging Comments [facility]. [place], [place] NAME: BERNARDA TORIBIO [facility] REC#: [id number] PT STATUS: REG ER : 1980 PHYSICIAN: HORTENSIA RABAGO DO ADMIT DATE: 09/18/18/ER FS Draft Date of Exam:09/18/18 CHEST 1 VIEW AP/PA ONLY INDICATION: Chest pressure, pain starting at 4 p.m. FINDINGS: Portable view of the chest demonstrates the lungs to be clear. Heart size and vascularity are normal. There are no pleural effusions. IMPRESSION: Normal portable chest. Dictated on workstation # [id number] Dict: 09/18/182049 Trans: 09/18/182056 [facility] [id number] Interpreted by: JAMES WALKER MD Electronically signed by: CP/AMI: Aspirin (prior to arrival), ECG Departure Impression Primary Impression: Chest pressure Disposition: 01 HOME, SELF-CARE Condition: Stable Departure-Patient Inst. Decision time for Depature: 21:57 Referrals: [facility]/ADELINE (PCP) Primary Care Physician ANKIT WATSON (Family) Primary Care Physician Patient Instructions: Chest Pain That Is Not Caused by the Heart (DC), Costochondritis, Pleuritic Chest Pain, Heart Healthy Diet Add. Discharge Instructions: Follow-up with your primary care physician in the next 1-2 days. Return to the emergency department immediately for difficult breathing, new or worsening symptoms. Take the prescribed medicine as directed as needed. Scripts Tramadol HCl (Tramadol HCl) 50 Mg Tablet 50 MG PO Q6H PRN for PAIN for 3 Days, #10 TAB 0 Refills Prov: HORTENSIA RABAGO DO 09/18/18 HORTENSIA RABAGO DO Sep 18, 2018 20:39
[2018-09-18 20:42] LABS: HEMATOCRIT 36 % (35-52); LYMPHOCYTES % (AUTO) 31 % (12-44); MEAN CORPUSCULAR HEMOGLOBIN 29 PG (25-34); MEAN CORPUSCULAR HGB CONC 33 G/DL (32-36); MEAN CORPUSCULAR VOLUME 86 FL (80-99); MEAN PLATELET VOLUME 8.9 FL (7.4-10.4); NEUTROPHILS % (AUTO) 60 % (42-75); PLATELET COUNT 334 10^3/uL (130-400); RED CELL DISTRIBUTION WIDTH 13.3 % (10.0-14.5); WHITE BLOOD COUNT 12.7 10^3/uL (4.3-11.0)
[2018-09-18 20:43] LABS: BASOPHILS # (AUTO) 0.1 10^3/uL (0.0-0.1); BASOPHILS % (AUTO) 1 % (0-10); EOSINOPHILS # (AUTO) 0.6 10^3/uL (0.0-0.3); EOSINOPHILS % (AUTO) 5 % (0-10); MONOCYTES # (AUTO) 0.5 X 10^3 (0.0-1.0); MONOCYTES % (AUTO) 4 % (0-12); NEUTROPHILS # (AUTO) 7.6 X 10^3 (1.8-7.8)
--- NOTE | 2018-09-18 20:58 | Diagnostic Imaging Report ---
INDICATION: Chest pressure, pain starting at 4 p.m. FINDINGS: Portable view of the chest demonstrates the lungs to be clear. Heart size and vascularity are normal. There are no pleural effusions. IMPRESSION: Normal portable chest. Dictated by: Dictated on workstation # [id number]
[2018-09-18 21:07] LABS: ALANINE AMINOTRANSFERASE 19 U/L (0-55); ALKALINE PHOSPHATASE 77 U/L (40-136); BILIRUBIN,TOTAL 0.2 MG/DL (0.1-1.0); BUN/CREATININE RATIO 19; CALCIUM 9.9 MG/DL (8.5-10.1); CARBON DIOXIDE 25 MMOL/L (21-32); CHLORIDE 99 MMOL/L (98-107); GFR ESTIMATED > 60; GLUCOSE 144 MG/DL (70-105); SODIUM 141 MMOL/L (135-145)
[2018-09-18 21:08] LABS: ALBUMIN 4.4 GM/DL (3.2-4.5); TOTAL PROTEIN 7.5 GM/DL (6.4-8.2)
[2018-09-18] MEDS ORDERED: TRAM50TA2 PO (21:59)
[2018-09-18 22:24] VITALS: BP 97/55
== END 2018-09-18 22:24 | disposition home or self-care (01) ==
LOC: EDUNIT# 20:23 → ER FS 20:24
DX: R07.89 Other chest pain (principal); E11.9 Type 2 diabetes mellitus without complications; Z85.41 Personal history of malignant neoplasm of cervix uteri; Z87.19 Personal history of other diseases of the digestive system; Z87.442 Personal history of urinary calculi; Z88.1 Allergy status to other antibiotic agents; Z88.5 Allergy status to narcotic agent; Z77.22 Contact with and (suspected) exposure to environmental tobacco smoke (acute) (chronic); Z98.51 Tubal ligation status; Z90.710 Acquired absence of both cervix and uterus
CPT/HCPCS: 36415; 71045; 80053; 83735; 83874; 83880; 84484; 85025; 85379; 93005; 93041

== ENCOUNTER 2018-12-08 20:50 | Emergency (ER) | payer SELFPAY ==
[~2018-12-08] VITALS: Ht 154 cm; Wt 88.0 kg
[~2018-12-08 20:50] MED LIST changes: +TRAM50TA2 PO
--- NOTE | 2018-12-08 21:10 | ED Chest Pain ---
General Chief Complaint: Chest Pain Stated Complaint: CHEST PAIN, DIZZY Source: patient History of Present Illness Date Seen by Provider: Dec 08, 2018 Time Seen by Provider: 20:57 Initial Comments 38-year-old female presenting with complaints of chest pain and dizziness. She states that around 1 this afternoon she had sudden onset of a tight band around her lower chest and upper abdomen that caused her to drop to the ground and she had also numbness and tingling going into both arms and a headache. The headache was behind her ears and more so on the right side of her neck. She denies having symptoms like this in the past. It has continued to be present off and on throughout the afternoon and evening. With her continuing to have episodes she came into the emergency department to be evaluated. She has been having some episodes of chest pain is waiting to be seen by cardiology. She is waiting to her back from the clinic about how she is to go see the vice president of news for the consult. She denies any vomiting but does have some nausea. She has been having some dizziness along with the tightness around her lower chest and upper abdomen. Allergies and Home Medications Allergies Coded Allergies: levofloxacin (Unverified Adverse Reaction, Intermediate, VOMITS BLOOD, 08/07/18) Uncoded Allergies: DEMEROL (Allergy, Severe, HIVES, 08/07/18) Home Medications Dulaglutide 0.75 Mg/0.5 Ml Pen.injctr, 0.75 MG SQ DAILY, (Reported) Hydrocodone Bit/Acetaminophen 1 Tab Tab, 1 EACH PO Q6H PRN for PAIN-MODERATE Prescribed by: GARO FISHMANRT on 08/07/182240 Ondansetron 4 Mg Tab.rapdis, 4 MG PO Q6H PRN for NAUSEA/VOMITING Prescribed by: GARO FISHMANRT on 08/07/182240 Sertraline HCl 50 Mg Tablet, 50 MG PO DAILY, (Reported) Tramadol HCl 50 Mg Tablet, 50 MG PO Q6H PRN for PAIN Prescribed by: HORTENSIA RABAGO on 09/18/182158 Patient Home Medication List Home Medication List Reviewed: Yes Review of Systems Review of Systems Constitutional: No chills; dizziness (intermittent along with headache); No fever EENTM: No Blurred Vision, No Eye Pain, No Ear Drainage, No Ear Pain Respiratory: Denies Cough, Denies Shortness of Air, Denies SOA With Exertion, Denies SOA at Rest Cardiovascular: Chest Pain (lower chest tightness); Denies Edema Gastrointestinal: Denies Abdomen Distended; Abdominal Pain (upper abdominal pain/tightness), Nausea; Denies Vomiting Genitourinary: No Symptoms Reported Musculoskeletal: neck pain (right sided up the back of her neck to her head) Skin: no symptoms reported Psychiatric/Neurological: Anxiety Past Frtiglv-Fzmjiw-Ikoxbi Hx Past Med/Social Hx: Reviewed Nursing Past Med/Soc Hx Patient Social History Type Used: Cigarettes 2nd Hand Smoke Exposure: Yes Recent Foreign Travel: No Contact w/Someone Who Travel: No Recent Hopitalizations: No Seasonal Allergies Seasonal Allergies: No Past Medical History Surgeries: Yes Abdominal, Gallbladder, Hysterectomy, 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 Respiratory: No 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 (ENLARGED RIGHT 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-PFO) 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 0oz. 82.509343ac; BMI Method:Stated General Appearance: No Apparent Distress, WD/WN HEENT: PERRL/EOMI, Normal ENT Inspection, Pharynx Normal Neck: Full Range of Motion, Normal Inspection, Non Tender, Supple Respiratory: Chest Non Tender, Lungs Clear, Normal Breath Sounds, No Accessory Muscle Use, No Respiratory Distress Cardiovascular: Regular Rate, Rhythm, No Murmur, Normal Peripheral Pulses Gastrointestinal: Normal Bowel Sounds, No Pulsatile Mass, Non Tender, Soft Extremity: Normal Capillary Refill, Normal Inspection, No Pedal Edema Neurologic/Psychiatric: Alert, Oriented x3, No Motor/Sensory Deficits Skin: Normal Color, Warm/Dry Progress/Results/Core Measures Results/Orders Lab Results Laboratory Tests Test 12/08/18 21:00 Range/Units White Blood Count 13.6 H 4.3-11.0 10^3/uL Red Blood Count 3.98 L 4.35-5.85 10^6/uL Hemoglobin 11.1 L 11.5-16.0 G/DL Hematocrit 35 35-52 % Mean Corpuscular Volume 87 80-99 FL Mean Corpuscular Hemoglobin 28 25-34 PG Mean Corpuscular Hemoglobin Concent 32 32-36 G/DL Red Cell Distribution Width 13.5 10.0-14.5 % Platelet Count 309 130-400 10^3/uL Mean Platelet Volume 8.8 7.4-10.4 FL Neutrophils (%) (Auto) 66 42-75 % Lymphocytes (%) (Auto) 26 12-44 % Monocytes (%) (Auto) 4 0-12 % Eosinophils (%) (Auto) 4 0-10 % Basophils (%) (Auto) 0 0-10 % Neutrophils # (Auto) 9.0 H 1.8-7.8 X 10^3 Lymphocytes # (Auto) 3.5 1.0-4.0 X 10^3 Monocytes # (Auto) 0.5 0.0-1.0 X 10^3 Eosinophils # (Auto) 0.6 H 0.0-0.3 10^3/uL Basophils # (Auto) 0.1 0.0-0.1 10^3/uL Prothrombin Time 13.0 12.2-14.7 SEC INR Comment 0.9 0.8-1.4 Activated Partial Thromboplast Time 28 24-35 SEC Sodium Level 139 135-145 MMOL/L Potassium Level 3.7 3.6-5.0 MMOL/L Chloride Level 106 98-107 MMOL/L Carbon Dioxide Level 22 21-32 MMOL/L Anion Gap 11 5-14 MMOL/L Blood Urea Nitrogen 7 7-18 MG/DL Creatinine 0.53 L 0.60-1.30 MG/DL Estimat Glomerular Filtration Rate > 60 BUN/Creatinine Ratio 13 Glucose Level 254 H 70-105 MG/DL Calcium Level 9.1 8.5-10.1 MG/DL Corrected Calcium 9.3 8.5-10.1 MG/DL Magnesium Level 1.7 1.6-2.4 MG/DL Total Bilirubin < 0.2 0.1-1.0 MG/DL Aspartate Amino Transf (AST/SGOT) 18 5-34 U/L Alanine Aminotransferase (ALT/SGPT) 19 0-55 U/L Alkaline Phosphatase 68 40-136 U/L Troponin I < 0.30 <0.30 NG/ML Pro-B-Type Natriuretic Peptide 97.1 H <75.0 PG/ML Total Protein 6.6 6.4-8.2 GM/DL Albumin 3.8 3.2-4.5 GM/DL My Orders Orders - ENGARO MAGANA MD Cbc With Automated Diff (12/08/18 21:03) Magnesium (12/08/18 21:03) Chest 1 View Ap/Pa Only (12/08/18 21:03) Ekg Tracing (12/08/18 21:03) Comprehensive Metabolic Panel (12/08/18:) Protime With Inr (12/08/18:) Partial Thromboplastin Time (12/08/18:03) O2 (12/08/18:03) Monitor-Rhythm Ecg Trace Only (12/08/18 21:03) Ed Iv/Invasive Line Start (12/08/18 21:03) Troponin I Fs (12/08/18 21:03) Probnp Fs (12/08/18 21:03) Ketorolac Injection (Toradol Injection) (12/08/18 22:15) Orphenadrine Injection (Norflex Injectio (12/08/18 22:15) Ct Cervical Spine Wo (12/08/18 22:11) Ct Angio Chest W (12/08/18 22:11) Iohexol Injection (Omnipaque 350 Mg/Ml 1 (12/08/18 22:30) Received Contrast (Hold Metformin- Contr (12/08/18 22:30) Sodium Chloride Flush (Catheter Flush Sy (12/08/18 22:30) Ns (Ivpb) (Sodium Chloride 0.9% Ivpb Bag (12/08/18 22:30) Medications Given in ED Current Medications Medications Dose Ordered Sig/Tory Route Start Time Stop Time Status Last Admin Dose Admin Iohexol 125 ml ONCE ONCE IV 12/08/18 22:30 12/08/18 22:31 DC 12/08/18 22:40 125 ML Ketorolac Tromethamine 30 mg ONCE ONCE IVP 12/08/18 22:15 12/08/18 22:16 DC 12/08/18 22:19 30 MG Orphenadrine Citrate 60 mg ONCE ONCE IV 12/08/18 22:15 12/08/18 22:16 DC 12/08/18 22:19 60 MG Sodium Chloride 10 ml NEEDED PRN IV 12/08/18 22:30 12/09/18 00:24 DC 12/08/18 22:40 10 ML Sodium Chloride 100 ml ONCE ONCE IV 12/08/18 22:30 12/08/18 22:31 DC 12/08/18 22:40 80 ML Vital Signs/I&O 12/08/18 12/09/18 20:54 00:01 Temp 37.1 Pulse 85 82 Resp 18 18 B/P (MAP) 119/64 (82) 102/46 Pulse Ox 98 97 O2 Delivery Room Air Room Air Progress Progress Note #1: Progress Note Obtain labs and electrocardiogram to evaluate for heart attack or acute coronary syndrome. Also check a chest x-ray for structural abnormality or effusion or infiltrate. Progress Note #2: Progress Note No acute abnormality on her electrocardiogram or chest x-ray. We will try a dose of Toradol and Norflex see if we would do anything for him so for pain since some of it is in her neck and she is having symptoms going into both upper arms some of this may be related to her spine or nerve issue. Counseled on obtaining a CT scan of her cervical spine and CT of the chest to evaluate the aorta and blood vessels as his cervical spine for neurologic issues or pinched nerve that might be causing the symptoms. Progress Note #3: Progress Note CT scan and cervical spine did show some cervical spondylosis with some narrowing of the foraminal stenosis and disc bulging with spurring. There is no canal stenosis. Her CT of the chest did not show any acute abnormality but the aorta. Her lungs showed some nonspecific interstitial opacities. There is no PE. She had some dilated common bile duct issues with no elevation in her liver enzymes. Counseled patient on the results and advised that I could talk to the hospitalist about admitting her for cardiology rule out and further evaluation and consult. She declined and wanted to continue her outpatient workup. We will have her check back through the clinic during the day. Return for worsening symptoms Initial ECG Impression Date: Dec 08, 2018 Initial ECG Impression Time: 20:55 Initial ECG Rate: 81 Initial ECG Rhythm: Normal Sinus Initial ECG Comparisson: No Previous ECG Available Comment Normal sinus rhythm with heart rate of 81 bpm. MD interval 148 ms. QT interval 382 ms with a QT corrected interval 444 ms. There is no acute ST elevation. Diagnostic Imaging Diagonstic Imaging: Xray Plain Films/CT/US/NM/MRI: chest Comments NAME: BERNARDA TORIBIO REC#: [id number] PT STATUS: REG ER : 1980 PHYSICIAN: GARO PEMBERTON MD ADMIT DATE: 12/08/18/ER FS Signed Date of Exam:12/08/18 CHEST 1 VIEW AP/PA ONLY EXAM: AP chest at 8:52 a.m. INDICATION: Chest pain FINDINGS: The heart size is within normal limits and stable when compared to 09/18/2018. The main pulmonary artery is prominent but unchanged when compared to the previous study. The lungs are generally clear. There is no evidence for overt failure or pneumonia. Minimal strand-like atelectasis has developed in the left midlung. The mediastinum is not widened. The osseous structures are intact. IMPRESSION: There is minimal strand-like atelectasis in the left midlung. There is no acute cardiopulmonary abnormality noted otherwise. Dictated by: Dictated on workstation # [id number] Dict: 12/08/182121 Trans: 12/08/182138 [facility] [id number] Interpreted by: JO MA MD Electronically signed by: JO MA MD 12/08/182138 Diagonstic Imaging: CT Plain Films/CT/US/NM/MRI: chest, c-spine Comments CT of the cervical spine showed cervical spondylosis with normal cervical alignment. Craniocervical junction relationship is normal. There is endplate spurring and broad-based disc bulging at C4-C5 and C5-C6. There is no significant canal stenosis or foraminal impingement evidence. At C5-C6 there is mild left and moderate right foraminal stenosis. There is no fracture. CT angiogram of the chest shows mild patchy groundglass interstitial opacities in the lungs, nonspecific. No consolidation, effusion or pulmonary embolus. 2 the images through the upper abdomen demonstrate postcholecystectomy changes with dilated common bile duct up to 11 mm. Correlate with biliary enzymes. CT scans were read by Dr. Hortensia Camarena M.D. Reviewed: [facility] Impression Primary Impression: Chest pain in adult Additional Impressions: Cervical spondylosis with radiculopathy Headache Qualified Codes: R51 - Headache Disposition: 01 HOME, SELF-CARE Condition: Stable Departure-Patient Inst. Decision time for Depature: 00:19 Referrals: [facility] (PCP) Primary Care Physician ANKIT WATSON (Family) Primary Care Physician Patient Instructions: Chest Pain That Is Not Caused by the Heart (DC), Headache, Adult (DC), Radiculopathy Add. Discharge Instructions: Follow up with Ankit Watson in the clinic and see if they can get you in with cardiology for the testing she wanted you to have. If you have worsening symptoms or more problems/concerns return or seek medical care for further evaluation All discharge instructions reviewed with patient and/or family. Voiced understanding. GARO PEMBERTON MD Dec 08, 2018 21:10
[2018-12-08 21:16] LABS: HEMATOCRIT 35 % (35-52); HEMOGLOBIN 11.1 G/DL (11.5-16.0); MEAN CORPUSCULAR HEMOGLOBIN 28 PG (25-34); MEAN CORPUSCULAR HGB CONC 32 G/DL (32-36); MEAN CORPUSCULAR VOLUME 87 FL (80-99); RED CELL DISTRIBUTION WIDTH 13.5 % (10.0-14.5); WHITE BLOOD COUNT 13.6 10^3/uL (4.3-11.0)
[2018-12-08 21:17] LABS: BASOPHILS % (AUTO) 0 % (0-10); EOSINOPHILS % (AUTO) 4 % (0-10); LYMPHOCYTES % (AUTO) 26 % (12-44); MEAN PLATELET VOLUME 8.8 FL (7.4-10.4); MONOCYTES % (AUTO) 4 % (0-12); NEUTROPHILS % (AUTO) 66 % (42-75); PLATELET COUNT 309 10^3/uL (130-400)
[2018-12-08 21:18] LABS: BASOPHILS # (AUTO) 0.1 10^3/uL (0.0-0.1); EOSINOPHILS # (AUTO) 0.6 10^3/uL (0.0-0.3); LYMPHOCYTES # (AUTO) 3.5 X 10^3 (1.0-4.0); MONOCYTES # (AUTO) 0.5 X 10^3 (0.0-1.0)
--- NOTE | 2018-12-08 21:25 | Diagnostic Imaging Report ---
EXAM: AP chest at 8:52 a.m. INDICATION: Chest pain FINDINGS: The heart size is within normal limits and stable when compared to 09/18/2018. The main pulmonary artery is prominent but unchanged when compared to the previous study. The lungs are generally clear. There is no evidence for overt failure or pneumonia. Minimal strand-like atelectasis has developed in the left midlung. The mediastinum is not widened. The osseous structures are intact. IMPRESSION: There is minimal strand-like atelectasis in the left midlung. There is no acute cardiopulmonary abnormality noted otherwise. Dictated by: Dictated on workstation # [id number]
[2018-12-08 21:29] LABS: INR 0.9 (0.8-1.4)
[2018-12-08 21:44] LABS: CHLORIDE 106 MMOL/L (98-107); POTASSIUM 3.7 MMOL/L (3.6-5.0); SODIUM 139 MMOL/L (135-145)
[2018-12-08 21:45] LABS: ALANINE AMINOTRANSFERASE 19 U/L (0-55); ALBUMIN 3.8 GM/DL (3.2-4.5); ALKALINE PHOSPHATASE 68 U/L (40-136); BILIRUBIN,TOTAL < 0.2 MG/DL (0.1-1.0); BUN/CREATININE RATIO 13; CALCIUM 9.1 MG/DL (8.5-10.1); CARBON DIOXIDE 22 MMOL/L (21-32); CREATININE SERUM 0.53 MG/DL (0.60-1.30); GFR ESTIMATED > 60; GLUCOSE 254 MG/DL (70-105); MAGNESIUM 1.7 MG/DL (1.6-2.4); TOTAL PROTEIN 6.6 GM/DL (6.4-8.2)
[2018-12-08] MEDS ORDERED: KETOROLAC 30 MG/ML VIAL IVP ONE (22:15)
[2018-12-08] MEDS ORDERED: ORPHENADRINE 60 MG/2 ML (NORFLEX) AMP IV ONE (22:15)
[2018-12-08] MEDS ORDERED: HOLD METFORMIN - RECEIVED CONTRAST 20 ML VIAL IV SCH (22:30)
[2018-12-08] MEDS ORDERED: CATHETER FLUSH 10 ML SYR IV PRN (22:30)
[2018-12-08] MEDS ORDERED: IOHEXOL 350 MG/ML 150 ML (OMNIPAQUE 350) VIAL IV ONE (22:30)
[2018-12-08] MEDS ORDERED: NS 100 ML (IVPB) BAG IV ONE (22:30)
[2018-12-09 00:01] VITALS: BP 102/46
--- NOTE | 2018-12-09 06:57 | Diagnostic Imaging Report ---
PROCEDURE: CT cervical spine without contrast. TECHNIQUE: Multiple contiguous axial images were obtained through the cervical spine without the use of intravenous contrast. Sagittal and coronal reformations were then performed. Auto Exposure Controls were utilized during the CT exam to meet ALARA standards for radiation dose reduction. INDICATION: Neck pain. COMPARISON: None. FINDINGS: Alignment is normal. There is no subluxation or fracture. There is mild diffuse degenerative disc disease and facet joint arthropathy. No traumatic malalignment or fracture is identified. No osseous lesion or paraspinous mass is present. IMPRESSION: No traumatic malalignment or fracture. Dictated by: Dictated on workstation # [id number]
--- NOTE | 2018-12-09 07:05 | Diagnostic Imaging Report ---
PROCEDURE: CT angiography of the chest with contrast. TECHNIQUE: Multiple contiguous axial images were obtained through the chest after uneventful bolus administration of intravenous contrast. 3D reconstructed CTA MIP acquisitions were also performed. Auto Exposure Controls were utilized during the CT exam to meet ALARA standards for radiation dose reduction. INDICATION: Chest pain, tightness. COMPARISON: None FINDINGS: There is slight cardiac enlargement without pericardial effusion. The pulmonary arteries and aorta appear grossly unremarkable. There is no mediastinal lymphadenopathy. Central airways are normal. There is some patchy infiltrate throughout both lungs most pronounced in the lung bases concerning for pneumonia. There is no pneumothorax, effusion or mass. Osseous structures are unremarkable. The gallbladder is surgically absent. There is expected postcholecystectomy common bile duct dilatation. IMPRESSION: 1. No pulmonary embolism was identified. 2. Patchy infiltrates primarily in the lung bases concerning for pneumonia. Followup recommended. Dictated by: Dictated on workstation # [id number]
== END 2018-12-09 00:24 | disposition home or self-care (01) ==
LOC: EDUNIT# 20:50 → ER FS 20:51
DX: R07.9 Chest pain, unspecified (principal); M43.02 Spondylolysis, cervical region; M54.12 Radiculopathy, cervical region; R51 Headache; E11.9 Type 2 diabetes mellitus without complications; Z85.41 Personal history of malignant neoplasm of cervix uteri; Z87.442 Personal history of urinary calculi; Z98.51 Tubal ligation status; Z90.710 Acquired absence of both cervix and uterus; Z88.1 Allergy status to other antibiotic agents; Z88.5 Allergy status to narcotic agent; Z77.22 Contact with and (suspected) exposure to environmental tobacco smoke (acute) (chronic)
CPT/HCPCS: 36415; 71045; 71275; 72125; 80053; 83735; 83880; 84484; 85025; 85610; 85730; 93005; 93041; 96374; 96375

== ENCOUNTER 2018-12-20 23:17 | Emergency (ER) | payer SELFPAY ==
[~2018-12-20] VITALS: Ht 154 cm; Wt 88.0 kg
[2018-12-20] MEDS ORDERED: ACETAMINOPHEN 325 MG TABLET PO ONE (23:30)
[2018-12-20] MEDS ORDERED: IBUPROFEN 800 MG (MOTRIN) TAB PO ONE (23:30)
--- NOTE | 2018-12-20 23:34 | ED Lower Extremity ---
General Chief Complaint: Trauma-Non Activation Stated Complaint: LT RIB/LT HIP/LT FOOT INJ History of Present Illness Date Seen by Provider: Dec 20, 2018 Time Seen by Provider: 23:15 Initial Comments The patient is a 38-year-old female with a history of oef-hxxpxkq-grdtcteew diabetes who presents with concern for acute onset of left foot injury with onset earlier today when her horse threw her. She landed on her left side but did not sustain any significant injury aside from to her left foot. Did not hit head, and reports no loss of consciousness, nausea or vomiting or amnesia to events. No significant pain anywhere aside from to her left foot which is bruised. Patient took ibuprofen earlier in the afternoon without relief of symptoms. She is ambulatory with a mildly antalgic gait due to foot discomfort here in the emergency department. Allergies and Home Medications Allergies Coded Allergies: levofloxacin (Unverified Adverse Reaction, Intermediate, VOMITS BLOOD, 08/07/18) Uncoded Allergies: DEMEROL (Allergy, Severe, HIVES, 08/07/18) Home Medications Acetaminophen 325 Mg Capsule, 975 MG PO TID Prescribed by: LIVIA HAWK on 12/20/18 2336 Dulaglutide 0.75 Mg/0.5 Ml Pen.injctr, 0.75 MG SQ DAILY, (Reported) Hydrocodone Bit/Acetaminophen 1 Tab Tab, 1 EACH PO Q6H PRN for PAIN-MODERATE Prescribed by: GARO PEMBERTON on 08/07/18 2241 Ibuprofen 800 Mg Tablet, 800 MG PO Q8H PRN for PAIN Prescribed by: LIVIA HAWK on 12/20/18 2336 Ondansetron 4 Mg Tab.rapdis, 4 MG PO Q6H PRN for NAUSEA/VOMITING Prescribed by: GARO PEMBERTON on 08/07/18 2241 Sertraline HCl 50 Mg Tablet, 50 MG PO DAILY, (Reported) Tramadol HCl 50 Mg Tablet, 50 MG PO Q6H PRN for PAIN Prescribed by: HORTENSIA RABAGO on 09/18/182158 Patient Home Medication List Home Medication List Reviewed: Yes Review of Systems Constitutional: see HPI All Other Systems Reviewed Negative Unless Noted: Yes (Negative excepted noted.) Past Tdutwli-Kumjsw-Rivtnc Hx Past Med/Social Hx: Reviewed Nursing Past Med/Soc Hx Patient Social History Type Used: Cigarettes 2nd Hand Smoke Exposure: Yes Recent Foreign Travel: No Recent Hopitalizations: No Seasonal Allergies Seasonal Allergies: No Past Medical History Surgeries: Yes Abdominal, Gallbladder, Hysterectomy, 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 Respiratory: No 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 (ENLARGED 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 HEART-PFO) 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00" Weight: 182lbs. 0oz. 82.387638mn; 37.00 BMI Method:Stated General Appearance: no apparent distress This is a middle-aged female appearing nontoxic and in no acute distress. Head is normocephalic and atraumatic. Neck is supple and nontender. Oropharynx is moist. Lungs are clear to auscultation in all stations. There is a normal S1 and S2 without rubs or gallops and capillary refill is appropriate, less than 2 seconds globally. Abdomen is soft, nontender and nondistended. Skin is warm and dry without cyanosis, clubbing or edema. Psychiatrically, the patient demonstrates appropriate mood and affect and is alert. From a musculoskeletal standpoint, evaluation of the left lower extremity is remarkable for an area of contusion over the dorsal aspect of the left forefoot and midfoot, with associated tenderness to palpation. There is mild swelling to this area as well. No pain with ranging of any joint of the left lower extremity. In particular, there is no pain with ranging at the ankle or digits of the left foot. Left lower extremity is neurovascularly intact with strength 5 out of 5, sensation intact to light touch in all nerve distributions, DP and PT pulses 2+, capillary refill less than 2 seconds, foot warm and well-perfused. Progress/Results/Core Measures Results/Orders My Orders Orders - LIVIA HAWK MD Ibuprofen Tablet (Motrin Tablet) (12/20/18 23:30) Acetaminophen Tablet/Caplet (Tylenol T (12/20/18 23:30) Ice: Apply To Affected Area (12/20/18 23:28) Foot 3 View Left (12/20/18 23:28) Medications Given in ED Current Medications Medications Dose Ordered Sig/Tory Route Start Time Stop Time Status Last Admin Dose Admin Acetaminophen 975 mg ONCE ONCE PO 12/20/18 23:30 12/20/18 23:31 DC 12/20/18 23:35 975 MG Ibuprofen 800 mg ONCE ONCE PO 12/20/18 23:30 12/20/18 23:31 DC 12/20/18 23:35 800 MG Vital Signs/I&O 12/20/18 23:20 Temp 36.0 Pulse 97 Resp 18 B/P (MAP) 128/71 (90) Pulse Ox 97 O2 Delivery Room Air Progress Progress Note : Progress Note Clinical examination generally quite reassuring. No signs of trauma anywhere aside from to the left dorsal foot which is bruised and mildly swollen. We will treat with ibuprofen and Tylenol and provided ice pack and we'll obtain plain films of the left foot and then we'll reevaluate. If no evidence of fracture, plan will be for discharge with a hard soled postoperative shoe to weight-bear as tolerated, NSAIDs, rest, ice, elevation and very close follow-up in the next 1-2 days with primary care. The patient understands and agrees. Update 2345: Patient with left fifth metatarsal shaft fracture as noted. She is neurovascularly intact to the left foot. We will place a CAM boot and job counselor minimal heel-touch weightbearing at least until seen in the orthopedic clinic in close follow-up. The patient will be referred to Dr. Pierson of [facility] orthopedics and she is counseled to call on Saturday morning for a close follow-up appointment in the next few days. She understands that if she feels worse is that of better or develops other new symptoms of concern that she will need to return immediately to the emergency department for reevaluation. All questions are answered. Departure Impression Primary Impression: Contusion of left foot Additional Impression: Fracture of fifth metatarsal bone of left foot Disposition: HOME, SELF-CARE Condition: Improved Departure-Patient Inst. Referrals: [facility] [place] (PCP) Primary Care Physician ANKIT WATSON (Family) Primary Care Physician Patient Instructions: Contusion (DC), Foot Fracture (DC) Add. Discharge Instructions: Follow-up in the next 1-2 days with your primary care physician in the clinic for reevaluation of your injury. Rest, ice, elevate and use the postoperative shoe to protect your foot. You may weight-bear as tolerated. Take the ibuprofen every 8 hours on a schedule for the first few days and then as needed after that. Return immediately to the emergency department with worsened symptoms or other new concerns. Scripts Hydrocodone/Acetaminophen ([place] 5-325 Tablet) 1 Each Tablet 1 TAB PO Q4-6HR for Pain MDD 10 TABS for 3 Days, #10 TAB Prov: LVIIA HAWK MD 12/20/18 Ibuprofen (Ibuprofen) 800 Mg Tablet 800 MG PO Q8H PRN for PAIN, #30 TAB 0 Refills Prov: LIVIA HAWK MD 12/20/18 LIVIA HAWK MD Dec 20, 2018 23:34
[2018-12-20] MEDS ORDERED: IBUP-1780 PO (23:36)
[2018-12-20] MEDS ORDERED: ACET325C5 PO (23:36)
[2018-12-20] MEDS ORDERED: HYDR-4226 PO (23:53)
[2018-12-20 23:55] VITALS: BP 128/71
--- NOTE | 2018-12-21 07:07 | Diagnostic Imaging Report ---
INDICATION: Fall with injury to left foot. Time of exam 11:15 PM 3 views of the left foot were obtained. There is an obliquely oriented fracture through the distal 5th metatarsal. Slight medial displacement of the distal fracture fragment is seen. Remaining metatarsals are intact. The phalanges are intact. Midfoot and hindfoot are unremarkable apart from small posterior and plantar calcaneal spurs. IMPRESSION: Obliquely oriented distal 5th metatarsal fracture. Dictated by: Dictated on workstation # [id number]
== END 2018-12-20 23:57 | disposition home or self-care (01) ==
LOC: EDUNIT# 23:17 → ER FS 23:19
DX: S92.352A Displaced fracture of fifth metatarsal bone, left foot, initial encounter for closed fracture (principal); S90.32XA Contusion of left foot, initial encounter; E11.9 Type 2 diabetes mellitus without complications; Z88.1 Allergy status to other antibiotic agents; Z88.8 Allergy status to other drugs, medicaments and biological substances; Z77.22 Contact with and (suspected) exposure to environmental tobacco smoke (acute) (chronic); Z90.710 Acquired absence of both cervix and uterus; Z98.51 Tubal ligation status; Z87.442 Personal history of urinary calculi; Z85.41 Personal history of malignant neoplasm of cervix uteri; V80.010A Animal-rider injured by fall from or being thrown from horse in noncollision accident, initial encounter
CPT/HCPCS: 73630

== ENCOUNTER 2019-03-08 17:44 | Emergency (ER) | payer SELFPAY ==
[~2019-03-08] VITALS: Ht 154.9 cm; Wt 90.2 kg
[~2019-03-08 17:44] MED LIST changes: +ACET325C5 PO; +HYDR-4226 PO; +IBUP-1780 PO
--- NOTE | 2019-03-08 18:23 | Diagnostic Imaging Report ---
INDICATION: Left foot injury, history of fracture. COMPARISON: 12/20/2018. EXAMINATION: Three views of the left foot. FINDINGS: Chronic partially healed fracture of the mid to distal 5th metatarsal. Alignment is unchanged from the prior examination. There is no new fracture or dislocation. There is no radiopaque foreign body. IMPRESSION: Chronic partially healed 5th metatarsal fracture. No new fracture deformity or dislocation identified. Dictated by: Dictated on workstation # [id number]
--- NOTE | 2019-03-08 18:28 | ED Lower Extremity ---
General Chief Complaint: Lower Extremity Stated Complaint: LT FOOT PAIN Nursing Triage Note: Patient reports she had a displaced fracture of her left 5th metatarsal 2 months ago, states she has been trying to see an orthopedic provider about possibly having surgery, but has had difficulty d/t lack of health insurance. She states she had been walking on the foot without much difficulty until this evening, when her grandson slammed a car door on her foot. She states she took 800 mg of ibprofen 2 hours prior to coming to the ED, but has continued to have worsening pain in her foot. Nursing Sepsis Screen: No Definite Risk Source: patient History of Present Illness Date Seen by Provider: Mar 08, 2019 Time Seen by Provider: 18:28 Initial Comments 39-year-old female trying to get out of the car tonight when her grandson hit the car door causing it to slam shut on her foot. In the process she has increased pain to her foot. She still has a fracture to the fifth metatarsal that has nonunion and is not healing. She is waiting to see an orthopedic doctor out of the [facility] clinic that will work with her in terms of cost to get this repaired with surgery. She has not taken anything for the pain. She came here to be seen after the injury. She can walk on the foot but has to pretty much better all of her weight on her heel. Allergies and Home Medications Allergies Coded Allergies: levofloxacin (Unverified Adverse Reaction, Intermediate, VOMITS BLOOD, 08/07/18) Uncoded Allergies: DEMEROL (Allergy, Severe, HIVES, 08/07/18) Home Medications Dulaglutide 0.75 Mg/0.5 Ml Pen.injctr, 0.75 MG SQ DAILY, (Reported) Hydrocodone Bit/Acetaminophen 1 Tab Tab, 1 EACH PO Q6H PRN for PAIN-MODERATE Prescribed by: GARO FISHMANRT on 08/07/18 2241 Hydrocodone/Acetaminophen 1 Each Tablet, 1 TAB PO Q4-6HR Prescribed by: LIVIA HAWK on 12/20/18 2353 Ibuprofen 800 Mg Tablet, 800 MG PO Q8H PRN for PAIN Prescribed by: LIVIA HAWK on 12/20/18 2336 Ondansetron 4 Mg Tab.rapdis, 4 MG PO Q6H PRN for NAUSEA/VOMITING Prescribed by: GARO FISHMANRT on 08/07/182240 Sertraline HCl 50 Mg Tablet, 50 MG PO DAILY, (Reported) Tramadol HCl 50 Mg Tablet, 50 MG PO Q6H PRN for PAIN Prescribed by: HORTENSIA RABAGO on 09/18/18 Patient Home Medication List Home Medication List Reviewed: Yes Review of Systems Constitutional: No chills, No fever EENTM: no symptoms reported Respiratory: no symptoms reported Cardiovascular: no symptoms reported Gastrointestinal: no symptoms reported Genitourinary: no symptoms reported Musculoskeletal: see HPI Skin: no symptoms reported Past Wtiggxl-Kdpkba-Pifjzh Hx Past Med/Social Hx: Reviewed Nursing Past Med/Soc Hx Patient Social History Type Used: Cigarettes 2nd Hand Smoke Exposure: No Recent Foreign Travel: No Contact w/Someone Who Travel: No Recent Infectious Disease Expo: No Recent Hopitalizations: No Seasonal Allergies Seasonal Allergies: No Past Medical History Surgeries: Yes Abdominal, Gallbladder, Hysterectomy, 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 Respiratory: No 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 (ENLARGED RIGHT HEART-PFO) 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 0oz. 82.824075ek; 37.00 BMI Method:Stated General Appearance: WD/WN Feet: left foot pain (she has increased pain and tenderness to the left lateral foot or she has the old non-union fracture from over 2 months ago. 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 nml as tested, no motor/sensory deficits, alert, oriented x 3 Skin: normal color, warm/dry; No ecchymosis Progress/Results/Core Measures Results/Orders My Orders Orders - GARO PEMBERTON MD Foot 3 View Left (03/08/19 18:08) Rx-Hydrocodone/Apap 5-325 Mg (Rx-Vicodin (03/08/19 19:00) Fabrizio Bandage (03/08/19 18:54) Nursing Communication (Order) (03/08/19 18:54) Vital Signs/I&O 03/08/19 03/08/19 17:59 19:17 Temp 36.4 36.0 Pulse 95 90 Resp 16 16 B/P (MAP) 107/67 (80) 119/59 Pulse Ox 98 98 O2 Delivery Room Air Room Air Blood Pressure Mean: 80 Progress Progress Note : Progress Note Three-view x-rays of the left foot did not demonstrate any acute new fracture or definite displacement of the old fracture and callus of the nonunion fifth metatarsal fracture. Counseled on results of the imaging and we will have her continue to try and use her boot and a limited weightbearing as tolerated at home. For tonight we will use Fabrizio bandage and postop shoe to try and give her more support than what she has with the tennis shoe. We'll give her a few hydrocodone from here and have her follow-up through the primary clinic for continued pain management Diagnostic Imaging Diagonstic Imaging: Xray Plain Films/CT/US/NM/MRI: other (Foot) Comments NAME: BERNARDA TORIBIO MED REC#: [id number] PT STATUS: REG ER : 1980 PHYSICIAN: GARO PEMBERTON MD ADMIT DATE: 03/08/19/ER FS Draft Date of Exam:03/08/19 FOOT 3 VIEW LEFT INDICATION: Left foot injury, history of fracture. COMPARISON: 12/20/2018. EXAMINATION: Three views of the left foot. FINDINGS: Chronic partially healed fracture of the mid to distal 5th metatarsal. Alignment is unchanged from the prior examination. There is no new fracture or dislocation. There is no radiopaque foreign body. IMPRESSION: Chronic partially healed 5th metatarsal fracture. No new fracture deformity or dislocation identified. 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 Decision time for Depature: 18:57 Referrals: [facility] (PCP) Primary Care Physician ANKIT WATSON (Family) Primary Care Physician Patient Instructions: Contusion (DC) Add. Discharge Instructions: Weight bearing as you tolerate it Try to elevate your foot as much as possible to help with pain and swelling. Use ice 20-30 minutes every few hours as needed to help with swelling and pain. Ibuprofen 800 mg every 8 hours as needed for pain and swelling. You may use the Hydrocodone for severe pain and check with primary if you need more than the few we can provide from the ED tonight All discharge instructions reviewed with patient and/or family. Voiced understanding. GARO PEMBERTON MD Mar 08, 2019 18:28
[2019-03-08] MEDS ORDERED: RX-HYDROCODONE/APAP 5/325 MG #4 TAB PK PO PRN (19:00)
[2019-03-08 19:17] VITALS: BP 119/59
== END 2019-03-08 19:17 | disposition home or self-care (01) ==
LOC: EDUNIT# 17:44 → ER FS 17:45
DX: S90.32XA Contusion of left foot, initial encounter (principal); S92.352P Displaced fracture of fifth metatarsal bone, left foot, subsequent encounter for fracture with malunion; E11.9 Type 2 diabetes mellitus without complications; Z85.41 Personal history of malignant neoplasm of cervix uteri; Z88.1 Allergy status to other antibiotic agents; Z88.8 Allergy status to other drugs, medicaments and biological substances; Z90.710 Acquired absence of both cervix and uterus; Z98.51 Tubal ligation status; Z87.442 Personal history of urinary calculi; Z87.19 Personal history of other diseases of the digestive system; W23.1XXA Caught, crushed, jammed, or pinched between stationary objects, initial encounter
CPT/HCPCS: 73630

== ENCOUNTER 2019-03-11 17:28 | Emergency (ER) | payer SELFPAY ==
[~2019-03-11] VITALS: Ht 157 cm; Wt 91.0 kg
[~2019-03-11 17:28] MED LIST changes: -TRAM50TA2 PO; +TRM50T PO
--- NOTE | 2019-03-11 17:39 | ED Upper Extremity ---
General Chief Complaint: Upper Extremity Stated Complaint: RIGHT SHOULDER INJURY Source: patient Exam Limitations: no limitations History of Present Illness Date Seen by Provider: Mar 11, 2019 Time Seen by Provider: 17:39 Initial Comments 39-year-old female presents with pain in her right shoulder. Patient reports she tripped over her dog and ran into a door jam. Patient has no obvious deformity. She has full range of motion with tenderness and pain when she gets to about 90 abduction. She she has no other complaints at this time Allergies and Home Medications Allergies Coded Allergies: levofloxacin (Unverified Adverse Reaction, Intermediate, VOMITS BLOOD, ) Uncoded Allergies: DEMEROL (Allergy, Severe, HIVES, 08/07/18) Home Medications Dulaglutide 0.75 Mg/0.5 Ml Pen.injctr, 0.75 MG SQ DAILY, (Reported) Hydrocodone Bit/Acetaminophen 1 Tab Tab, 1 EACH PO Q6H PRN for PAIN-MODERATE Prescribed by: GARO PEMBERTON on 08/07/18 2241 Hydrocodone/Acetaminophen 1 Each Tablet, 1 TAB PO Q4-6HR Prescribed by: LIVIA HAWK on 12/20/18 2353 Ibuprofen 800 Mg Tablet, 800 MG PO Q8H PRN for PAIN Prescribed by: LIVIA HAWK on 12/20/18 2336 Ondansetron 4 Mg Tab.rapdis, 4 MG PO Q6H PRN for NAUSEA/VOMITING Prescribed by: GARO PEMBERTON on 08/07/18 2241 Sertraline HCl 50 Mg Tablet, 50 MG PO DAILY, (Reported) Tramadol HCl 50 Mg Tablet, 50 MG PO Q6H PRN for PAIN Prescribed by: HORTENSIA RABAGO on 09/18/18 2159 Patient Home Medication List Home Medication List Reviewed: Yes Review of Systems Constitutional: no symptoms reported Respiratory: no symptoms reported Cardiovascular: no symptoms reported Gastrointestinal: no symptoms reported Musculoskeletal: see HPI Skin: see HPI Past Csrlizj-Upnunf-Isimme Hx Past Med/Social Hx: Reviewed Nursing Past Med/Soc Hx Patient Social History Alcohol Use: Denies Use Recreational Drug Use: No Type Used: Cigarettes 2nd Hand Smoke Exposure: No Recent Foreign Travel: No Contact w/Someone Who Travel: No Recent Hopitalizations: No Physical Abuse: No Sexual Abuse: No Mistreated: No Fear: No Seasonal Allergies Seasonal Allergies: No Past Medical History Surgeries: Yes Abdominal, Gallbladder, Hysterectomy, 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 Respiratory: No 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 (ENLARGED RIGHT HEART-PFO) 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 0oz. 82.749429dq; 37.00 BMI Method:Stated General Appearance: WD/WN, no apparent distress HEENT: PERRL/EOMI Neck: full range of motion, supple Cardiovascular: normal peripheral pulses, regular rate, rhythm Respiratory: lungs clear, normal breath sounds Shoulder: No bone tenderness; limited ROM (pain at approx 90 degrees abduction ), soft tissue tenderness; No swelling Elbow/Forearm: normal inspection Wrist: Yes normal inspection Hand: normal inspection Neurologic/Tendon: normal sensation Neurologic/Psychiatric: alert, normal mood/affect, oriented x 3 Skin: normal color, warm/dry Progress/Results/Core Measures Results/Orders My Orders Orders - TASHA CHIN DO Shoulder 2 View Right (03/11/19 17:41) Vital Signs/I&O 03/11/19 17:36 Temp 36.2 Pulse 83 Resp 16 B/P (MAP) 103/76 (85) Pulse Ox 98 Diagnostic Imaging Diagonstic Imaging: Xray Plain Films/CT/US/NM/MRI: other (shoulder) Reviewed: Reviewed by Me, Reviewed/Discussed Departure Impression Primary Impression: Contusion of right shoulder region Qualified Codes: S40.011A - Contusion of right shoulder, initial encounter Disposition: HOME, SELF-CARE Condition: Stable Departure-Patient Inst. Referrals: [facility] (PCP) Primary Care Physician ANKIT WATSON (Family) Primary Care Physician Patient Instructions: Contusion (DC) Add. Discharge Instructions: Tylenol or ibuprofen as needed for pain 4% topical lidocaine with menthol as directed on package Emergency department focuses on treating and ruling out life-threatening diseases. Whenever possible, a diagnosis is given. However, most patients are given an impression based on their history, physical exam, and workup during your brief time in the ER. Information about probable diagnosis and other educational material has been provided. Please take the time to read and understand this information. It is very important that you follow up with a physician as discussed during the visit today. Failure to adhere to your follow-up instructions may lead to severe disability, injury, or so please make sure to keep your appointments or obtain one as requested. Please keep in mind the emergency department is not designed to your primary care or "family doctor" and nonurgent issues are best evaluated by an outpatient physician All discharge instructions reviewed with patient and/or family. Voiced understanding. TASHA CHIN DO Mar 11, 2019 17:39
--- NOTE | 2019-03-11 18:03 | Diagnostic Imaging Report ---
INDICATION: Right shoulder pain. COMPARISON: None. FINDINGS: Two views of the right shoulder demonstrate no fracture or dislocation. Articular surfaces are normal. There is no osseous lesion. IMPRESSION: Negative right shoulder. Dictated by: Dictated on workstation # [id number]
[2019-03-11 18:11] VITALS: BP 103/76
== END 2019-03-11 18:11 | disposition home or self-care (01) ==
LOC: EDUNIT# 17:28 → ER FS 17:30
DX: S40.011A Contusion of right shoulder, initial encounter (principal); E11.9 Type 2 diabetes mellitus without complications; Z88.1 Allergy status to other antibiotic agents; Z88.8 Allergy status to other drugs, medicaments and biological substances; Z98.51 Tubal ligation status; Z90.710 Acquired absence of both cervix and uterus; Z87.442 Personal history of urinary calculi; Z85.41 Personal history of malignant neoplasm of cervix uteri; W01.0XXA Fall on same level from slipping, tripping and stumbling without subsequent striking against object, initial encounter
CPT/HCPCS: 73030

== ENCOUNTER 2019-03-23 19:35 | Inpatient (IN) | payer SELFPAY ==
[~2019-03-23] VITALS: Ht 154.9 cm; Wt 90.8 kg
[~2019-03-23 19:35] MED LIST changes: -ACET325C5 PO; +ACET325C7 PO
[2019-03-23] MEDS ORDERED: morphine INJ 10 MG/ML 1ML (SYR OR VIAL) IVP STA ×2 (20:31→21:45)
[2019-03-23] MEDS ORDERED: NS IV 1000 ML 1,000 ML IV SCH (20:31)
[2019-03-23 20:39] LABS: BASOPHILS % (AUTO) 1 % (0-10); EOSINOPHILS % (AUTO) 5 % (0-10); HEMATOCRIT 37 % (35-52); HEMOGLOBIN 11.9 G/DL (11.5-16.0); LYMPHOCYTES % (AUTO) 38 % (12-44); MEAN CORPUSCULAR HEMOGLOBIN 28 PG (25-34); MEAN CORPUSCULAR HGB CONC 32 G/DL (32-36); MEAN CORPUSCULAR VOLUME 86 FL (80-99); MEAN PLATELET VOLUME 8.9 FL (7.4-10.4); MONOCYTES % (AUTO) 5 % (0-12); NEUTROPHILS % (AUTO) 51 % (42-75); PLATELET COUNT 308 10^3/uL (130-400); RED CELL DISTRIBUTION WIDTH 13.8 % (10.0-14.5); WHITE BLOOD COUNT 8.9 10^3/uL (4.3-11.0)
[2019-03-23 20:40] LABS: BASOPHILS # (AUTO) 0.1 10^3/uL (0.0-0.1); EOSINOPHILS # (AUTO) 0.4 10^3/uL (0.0-0.3); LYMPHOCYTES # (AUTO) 3.4 X 10^3 (1.0-4.0); MONOCYTES # (AUTO) 0.5 X 10^3 (0.0-1.0); NEUTROPHILS # (AUTO) 4.6 X 10^3 (1.8-7.8)
[2019-03-23] MEDS ORDERED: ASPIRIN 81 MG CHEW (CHILDREN'S ASA) PO ONE (20:45)
[2019-03-23] MEDS ORDERED: ONDANSETRON 4 MG/2 ML (SDV) Z0FRAN IVP ONE (20:45)
[2019-03-23 20:46] LABS: INR 0.9 (0.8-1.4); PROTHROMBIN TIME PATIENT 12.4 SEC (12.2-14.7)
--- NOTE | 2019-03-23 21:00 | Diagnostic Imaging Report ---
INDICATION: Chest pain. COMPARISON: 12/08/2018 FINDINGS: Single frontal view of the chest demonstrates normal heart size and pulmonary vascularity. The lungs are well aerated and clear. No large pleural effusion or pneumothorax is seen. The visualized osseous structures show no acute abnormalities. IMPRESSION: 1. No acute cardiopulmonary process. Dictated by: Dictated on workstation # [id number]
[2019-03-23] MEDS: NITROGLYCERIN 0.4 MG SL TABS BTL 25'S SL PRN ×3 (21:04→21:51)
[2019-03-23 21:09] LABS: ALANINE AMINOTRANSFERASE 19 U/L (0-55); ALBUMIN 4.1 GM/DL (3.2-4.5); ALKALINE PHOSPHATASE 80 U/L (40-136); BILIRUBIN,TOTAL < 0.2 MG/DL (0.1-1.0); BUN/CREATININE RATIO 22; CALCIUM 9.3 MG/DL (8.5-10.1); CARBON DIOXIDE 23 MMOL/L (21-32); CHLORIDE 102 MMOL/L (98-107); GFR ESTIMATED > 60; GLUCOSE 257 MG/DL (70-105); POTASSIUM 3.6 MMOL/L (3.6-5.0); SODIUM 140 MMOL/L (135-145); TOTAL PROTEIN 7.1 GM/DL (6.4-8.2)
--- NOTE | 2019-03-23 21:35 | ED Chest Pain ---
General Chief Complaint: Chest Pain Stated Complaint: CHEST PAIN/DIZZINESS Nursing Triage Note: PT AMBULATE TO ROOM FS01 WITH C/O CHEST PAIN X3 DAYS. PT STATES SHE HAS NOT CONTACTED PCP FOR THIS AND HAS TAKEN TYLENOL FOR THE PAIN. Nursing Sepsis Screen: No Definite Risk History of Present Illness Date Seen by Provider: Mar 23, 2019 Time Seen by Provider: 19:30 Initial Comments The patient is a 39-year-old female with a history of hyperlipidemia, vmp-dsbhqra-xkllxmrcr diabetes, long-standing tobacco abuse, strong family history of early heart disease and what she reports is a cardiac catheterization completed [address] [facility] at which time no stents were placed but from what she says it sounds like she was told that there was some soft plaque that did not require intervention. She presents with concern for 3 days of substernal dull, achy relatively severe chest discomfort which is nonradiating and nonpleuritic but somewhat exertional in character in that it does get worse with activity. Associated nausea, mild shortness of breath and what the patient describes as cold sweats when she wakes up in the mornings with the discomfort. She also reports some associated lightheadedness without melia syncope. No associated fevers, cough, interscapular back pain, flank pain, abdominal pain, recent surgery, immobilization, hemoptysis, calf pain or swelling, personal or family history of venous thromboembolic disease, estrogen or steroid use. Patient states pain is about a 7 out of 10 in severity now. Allergies and Home Medications Allergies Coded Allergies: levofloxacin (Unverified Adverse Reaction, Intermediate, VOMITS BLOOD, 08/07/18) Uncoded Allergies: DEMEROL (Allergy, Severe, HIVES, 08/07/18) Home Medications Dulaglutide 0.75 Mg/0.5 Ml Pen.injctr, 0.75 MG SQ DAILY, (Reported) Hydrocodone Bit/Acetaminophen 1 Tab Tab, 1 EACH PO Q6H PRN for PAIN-MODERATE Prescribed by: GARO PEMBERTON on 08/07/18 2241 Hydrocodone/Acetaminophen 1 Each Tablet, 1 TAB PO Q4-6HR Prescribed by: LIVIA HAWK on 12/20/18 2353 Ibuprofen 800 Mg Tablet, 800 MG PO Q8H PRN for PAIN Prescribed by: LIVIA HAWK on 12/20/18 2336 Ondansetron 4 Mg Tab.rapdis, 4 MG PO Q6H PRN for NAUSEA/VOMITING Prescribed by: GARO PEMBERTON on 08/07/18 2241 Sertraline HCl 50 Mg Tablet, 50 MG PO DAILY, (Reported) Tramadol HCl 50 Mg Tablet, 50 MG PO Q6H PRN for PAIN Prescribed by: HORTENSIA RABAGO on 09/18/18 215 Patient Home Medication List Home Medication List Reviewed: Yes Review of Systems Review of Systems Constitutional: see HPI All Other Systems Reviewed Negative Unless Noted: Yes (Negative excepted noted.) Past Zgclzap-Ckxfor-Ykbawy Hx Past Med/Social Hx: Reviewed Nursing Past Med/Soc Hx Patient Social History Alcohol Use: Denies Use Recreational Drug Use: No Smoking Status: Current Everyday Smoker Type Used: Cigarettes 2nd Hand Smoke Exposure: Yes Recent Foreign Travel: No Contact w/Someone Who Travel: No Recent Infectious Disease Expo: No Recent Hopitalizations: No Physical Abuse: No Sexual Abuse: No Mistreated: No Fear: No Seasonal Allergies Seasonal Allergies: No Past Medical History Surgeries: Yes Abdominal, Gallbladder, Hysterectomy, 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 Respiratory: No 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 (ENLARGED RIGHT HEART-PFO) 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, 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 Genitourinary: Yes (RIGHT KIDNEY DEFORMITY) Kidney Stones Gastrointestinal: Yes (ENLARGED LIVER) Diverticulosis Musculoskeletal: No Endocrine: Yes Diabetes, Non-Insulin dep HEENT: No Cancer: Yes Cervical Did You Recieve Any Treatments: No What Type of Treatment Did You: Surgical Intervention Psychosocial: No Integumentary: No Blood Disorders: No Family Medical History Reviewed Nursing Family Hx Physical Exam Vital Signs Vital Signs - First Documented 03/23/19 19:52 Temp 36.4 Pulse 89 Resp 17 B/P (MAP) 117/69 (85) O2 Delivery Room Air Capillary Refill : Less Than 3 Seconds Height, Weight, BMI Height: 5'1.00" Weight: 182lbs. 0oz. 82.141475yb; 37.00 BMI Method:Stated General Appearance: No Apparent Distress Other comments This is a middle-aged female appearing nontoxic and in no significant distress. Head is normocephalic and atraumatic. Neck is supple and nontender. Oropharynx is moist. Lungs are clear to auscultation at all stations. There is a normal S1 and S2 without rubs or gallops and capillary refill is appropriate, less than 2 seconds globally. Abdomen is soft, nontender and nondistended. Skin is warm and dry without cyanosis, clubbing or edema. Psychiatrically, the patient demonstrates appropriate mood and affect and is alert. Progress/Results/Core Measures Results/Orders Lab Results Laboratory Tests Test 03/23/19 20:02 Range/Units White Blood Count 8.9 4.3-11.0 10^3/uL Red Blood Count 4.31 L 4.35-5.85 10^6/uL Hemoglobin 11.9 11.5-16.0 G/DL Hematocrit 37 35-52 % Mean Corpuscular Volume 86 80-99 FL Mean Corpuscular Hemoglobin 28 25-34 PG Mean Corpuscular Hemoglobin Concent 32 32-36 G/DL Red Cell Distribution Width 13.8 10.0-14.5 % Platelet Count 308 130-400 10^3/uL Mean Platelet Volume 8.9 7.4-10.4 FL Neutrophils (%) (Auto) 51 42-75 % Lymphocytes (%) (Auto) 38 12-44 % Monocytes (%) (Auto) 5 0-12 % Eosinophils (%) (Auto) 5 0-10 % Basophils (%) (Auto) 1 0-10 % Neutrophils # (Auto) 4.6 1.8-7.8 X 10^3 Lymphocytes # (Auto) 3.4 1.0-4.0 X 10^3 Monocytes # (Auto) 0.5 0.0-1.0 X 10^3 Eosinophils # (Auto) 0.4 H 0.0-0.3 10^3/uL Basophils # (Auto) 0.1 0.0-0.1 10^3/uL Prothrombin Time 12.4 12.2-14.7 SEC INR Comment 0.9 0.8-1.4 Activated Partial Thromboplast Time 28 24-35 SEC Sodium Level 140 135-145 MMOL/L Potassium Level 3.6 3.6-5.0 MMOL/L Chloride Level 102 98-107 MMOL/L Carbon Dioxide Level 23 21-32 MMOL/L Anion Gap 15 H 5-14 MMOL/L Blood Urea Nitrogen 11 7-18 MG/DL Creatinine 0.50 L 0.60-1.30 MG/DL Estimat Glomerular Filtration Rate > 60 BUN/Creatinine Ratio 22 Glucose Level 257 H 70-105 MG/DL Calcium Level 9.3 8.5-10.1 MG/DL Corrected Calcium 9.2 8.5-10.1 MG/DL Total Bilirubin < 0.2 0.1-1.0 MG/DL Aspartate Amino Transf (AST/SGOT) 15 5-34 U/L Alanine Aminotransferase (ALT/SGPT) 19 0-55 U/L Alkaline Phosphatase 80 40-136 U/L Troponin I < 0.30 <0.30 NG/ML Pro-B-Type Natriuretic Peptide 73.3 <75.0 PG/ML Total Protein 7.1 6.4-8.2 GM/DL Albumin 4.1 3.2-4.5 GM/DL My Orders Orders - LIVIA HAWK MD Cbc With Automated Diff (03/23/19 20:31) Comprehensive Metabolic Panel (03/23/19 20:31) Troponin I Fs (03/23/19 20:31) Ekg Tracing (03/23/19 20:31) Chest 1 View Ap/Pa Only (03/23/19 20:31) Probnp Fs (03/23/19 20:31) Protime With Inr (03/23/19 20:31) Partial Thromboplastin Time (03/23/19 20:31) Aspirin Chewable Tablet (Baby Aspirin Ch (03/23/19 20:45) Nitroglycerin 0.4 Mg Btl 25's (Nitrostat (03/23/19 20:45) Morphine Injection (Morphine Injection (03/23/19 20:31) Ondansetron Injection (Zofran Injectio (03/23/19 20:45) Ed Iv/Invasive Line Start (03/23/19 20:31) Ns Iv 1000 Ml (Sodium Chloride 0.9%) (03/23/19 20:31) Medications Given in ED Current Medications Medications Dose Ordered Sig/Tory Route Start Time Stop Time Status Last Admin Dose Admin Aspirin 324 mg ONCE ONCE PO 03/23/19 20:45 03/23/19 20:46 DC 03/23/19 21:04 324 MG Nitroglycerin 1 TAB Q 5 MIN X 3 NEEDED PRN SL 03/23/19 20:45 03/23/19 21:32 0.4 MG Ondansetron HCl 4 mg ONCE ONCE IVP 03/23/19 20:45 03/23/19 20:46 DC 03/23/19 21:04 4 MG Vital Signs/I&O 03/23/19 03/23/19 19:52 19:52 Temp 36.4 Pulse 89 Resp 17 B/P (MAP) 117/69 (85) O2 Delivery Room Air Room Air Blood Pressure Mean: 85 Progress Progress Note : Time: 21:35 Progress Note 39-year-old female with hyperlipidemia, diabetes, long-standing tobacco abuse, possible nonocclusive coronary disease by her report based on catheterization completed [address] [facility], strong family history of early cardiovascular disease. HEART score 4, moderate risk. Patient is Wells low risk for PE and PERCs out. Labs, EKG and chest x-ray are unremarkable and reassuring. Patient is still in significant chest discomfort and states her pain is not much better after nitroglycerin, morphine and aspirin. We'll give some additional medication for discomfort. Given moderate risk by HEART score and concerning episode of discomfort, we will admit for observation on telemetry, ACS rule out and attention from cardiology for risk stratification testing and further care. Patient is graciously accepted for [facility] admission by Dr. Abebe. Comment Sinus rhythm, no acute ST elevation or depression, rate 85, MA 142, QRS 104, QTC 458, EP interpretation. Diagnostic Imaging Comments CHEST 1 VIEW AP/PA ONLY INDICATION: Chest pain. COMPARISON: 12/08/2018 FINDINGS: Single frontal view of the chest demonstrates normal heart size and pulmonary vascularity. The lungs are well aerated and clear. No large pleural effusion or pneumothorax is seen. The visualized osseous structures show no acute abnormalities. IMPRESSION: 1. No acute cardiopulmonary process. Departure Impression Primary Impression: Other chest pain Disposition: ADMITTED INPATIENT Condition: Stable Departure-Patient Inst. Referrals: [facility] (PCP) Primary Care Physician ANKIT WATSON (Family) Primary Care Physician LIVIA HAWK MD Mar 23, 2019 21:35
[2019-03-23] MEDS ORDERED: BISACODYL 10 MG SUPP (DULCOLAX) PR PRN (22:15)
[2019-03-23] MEDS ORDERED: ACETAMINOPHEN 325 MG TABLET PO PRN (22:15)
[2019-03-23] MEDS ORDERED: CALCIUM CARBONATE 500 MG (TUMS) TAB.CHEW PO PRN (22:15)
[2019-03-23] MEDS ORDERED: morphine INJ 10 MG/ML 1ML (SYR OR VIAL) IV PRN (22:15)
[2019-03-23] MEDS ORDERED: ENOXAPARIN 40 MG/0.4 ML (LOVENOX) SYR SC SCH (22:15)
[2019-03-23] MEDS ORDERED: ONDANSETRON 4 MG (ZOFRAN) ORAL DISSOLVE TAB PO PRN (22:15)
[2019-03-23] MEDS ORDERED: diphenhydrAMINE 50 MG/ML INJ (BENADRYL) IVP PRN (22:15)
[2019-03-23] MEDS ORDERED: MILK OF MAGNESIA 400 MG/5 ML 30 ML UDC PO PRN (22:15)
[2019-03-23] MEDS ORDERED: MELATONIN 3 MG TABLET PO PRN (22:15)
[2019-03-23] MEDS ORDERED: POLYETHYLENE GLYCOL 17 GM (MIRALAX) PACK PO PRN (22:15)
[2019-03-23] MEDS ORDERED: HYDROmorphone 2 MG/ML VIAL (DILAUDID) IV PRN (22:15)
[2019-03-23] MEDS ORDERED: LACTULOSE SYRUP 10GM/15ML (ENULOSE) 30ML UDC PO PRN (22:15)
[2019-03-23] MEDS ORDERED: ANTACID SUSP 30 ML UDC (MYLANTA) PO PRN (22:15)
[2019-03-23] MEDS ORDERED: ONDANSETRON 4 MG/2 ML (SDV) Z0FRAN IV PRN (22:15)
--- NOTE | 2019-03-23 22:20 | NUR ---
report on pt received from yobani diaz ER nurse. pt still in ER, RN states will call when ambulance picks up patient for transfer.
[2019-03-23 23:50] VITALS: BP 105/60
--- NOTE | 2019-03-23 23:50 | NUR ---
PT ARRIVED PER EMS. BERNARDA TORIBIO Neo admitted to room 415-1, with an admitting diagnosis of Chest Pain / ACS. BERNARDA TORIBIO introduced to surroundings, call light, bed controls, phone, TV, temperature control, lights, meal times, smoking policy, visitor policy, side rail policy, bathrooms and showers. Patient Rights given to patient in the handbook. BERNARDA TORIBIO verbalizes understanding that [facility] is not responsible for the loss or damage to any personal effects or valuables that are kept in the patients posession during their hospitalization. The following Patient Care Plans were discussed with the pt: Discharge Planning, alt in comfort,anxiety., and activity intolerance. BERNARDA TORIBIO verbalizes understanding of Interdisciplinary Patient Education. Patient was informed about the Rapid Response Team and its purpose.
[2019-03-24] MEDS ORDERED: SERT100T8 PO (00:32)
[2019-03-24] MEDS ORDERED: RT-ALBUTEROL SULF 2.5 MG/3 ML PRE-MIX VIAL INH PRN (02:15)
[2019-03-24 03:55] VITALS: BP 104/64
[2019-03-24 05:34] LABS: BASOPHILS % (AUTO) 0 % (0-10); EOSINOPHILS # (AUTO) 0.5 10^3/uL (0.0-0.3); EOSINOPHILS % (AUTO) 5 % (0-10); HEMATOCRIT 34 % (35-52); HEMOGLOBIN 11.1 G/DL (11.5-16.0); LYMPHOCYTES # (AUTO) 4.5 X 10^3 (1.0-4.0); LYMPHOCYTES % (AUTO) 45 % (12-44); MEAN CORPUSCULAR HEMOGLOBIN 28 PG (25-34); MEAN CORPUSCULAR HGB CONC 33 G/DL (32-36); MEAN CORPUSCULAR VOLUME 86 FL (80-99); MEAN PLATELET VOLUME 8.5 FL (7.4-10.4); MONOCYTES # (AUTO) 0.6 X 10^3 (0.0-1.0); MONOCYTES % (AUTO) 6 % (0-12); NEUTROPHILS # (AUTO) 4.5 X 10^3 (1.8-7.8); NEUTROPHILS % (AUTO) 44 % (42-75); PLATELET COUNT 298 10^3/uL (130-400); RED CELL DISTRIBUTION WIDTH 14.3 % (10.0-14.5); WHITE BLOOD COUNT 10.1 10^3/uL (4.3-11.0)
[2019-03-24 05:52] LABS: ALANINE AMINOTRANSFERASE 21 U/L (0-55); ALBUMIN 3.7 GM/DL (3.2-4.5); ALKALINE PHOSPHATASE 67 U/L (40-136); BILIRUBIN,TOTAL 0.1 MG/DL (0.1-1.0); BUN/CREATININE RATIO 15; CALCIUM 8.6 MG/DL (8.5-10.1); CARBON DIOXIDE 19 MMOL/L (21-32); CHLORIDE 110 MMOL/L (98-107); CREATININE SERUM 0.65 MG/DL (0.60-1.30); GFR ESTIMATED > 60; GLUCOSE 159 MG/DL (70-105); POTASSIUM 3.9 MMOL/L (3.6-5.0); SODIUM 141 MMOL/L (135-145); TOTAL PROTEIN 6.4 GM/DL (6.4-8.2)
--- NOTE | 2019-03-24 08:01 | Consultation-Cardiology ---
HPI-Cardiology Cardiology Consultation Date of Consultation 03/24/19 Date of Admission Time Seen by Provider: 07:58 Indication: Chest pain HPI 39-year-old lady with strong family history of heart disease, diabetes mellitus and tobaccoism, has been having recurrent chest pain for the past 3 days described as dull in nature in the retrosternal area associated with nausea. No palpitation, having some difficulty breathing. No syncope or near syncopal episodes. Had a cardiac catheterization about 2 years ago and she was told she has soft plaques Home Medications & Allergies Allergies: Coded Allergies: levofloxacin (Unverified Adverse Reaction, Intermediate, VOMITS BLOOD, 08/07/18) Uncoded Allergies: DEMEROL (Allergy, Severe, HIVES, 08/07/18) Home Medication List Reviewed: Yes WKQ-Kztfrg-Yayume Hx Patient Social History Alcohol Use: Denies Use Recreational Drug Use: No Smoking Status: Current Everyday Smoker Type Used: Cigarettes 2nd Hand Smoke Exposure: Yes Recent Foreign Travel: No Recent Infectious Disease Expo: No Recent Hopitalizations: No Past Medical History Discussed below Family Medical History Family Medical Hx Strong family history of heart disease Review of Systems-General Review of Systems Constitutional: see HPI; No chills, No diaphoresis, No dizziness, No fever, No malaise, No weakness, No weight gain, No weight loss, No other EENTM: see HPI, no symptoms reported Respiratory: see HPI; No cough; dyspnea on exertion; No hemoptysis, No orthopnea, No phlegm, No short of breath, No stridor, No wheezing, No other Cardiovascular: see HPI, chest pain; No edema, No Hx of Intervention, No palpitations, No syncope, No vascular heart diseas, No other Gastrointestinal: no symptoms reported, see HPI Genitourinary: no symptoms reported, see HPI Musculoskeletal: no symptoms reported, see HPI Skin: no symptoms reported, see HPI Psychiatric/Neurological: No Symptoms Reported, See HPI All Other Systems Reviewed Negative Unless Noted: Yes (Negative excepted noted.) Reviewed Test Results Reviewed Test Results Lab Laboratory Tests Test 03/23/19 20:02 03/24/19 05:23 Range/Units White Blood Count 8.9 10.1 4.3-11.0 10^3/uL Red Blood Count 4.31 L 3.94 L 4.35-5.85 10^6/uL Hemoglobin 11.9 11.1 L 11.5-16.0 G/DL Hematocrit 37 34 L 35-52 % Mean Corpuscular Volume 86 86 80-99 FL Mean Corpuscular Hemoglobin 28 28 25-34 PG Mean Corpuscular Hemoglobin Concent 32 33 32-36 G/DL Red Cell Distribution Width 13.8 14.3 10.0-14.5 % Platelet Count 308 298 130-400 10^3/uL Mean Platelet Volume 8.9 8.5 7.4-10.4 FL Neutrophils (%) (Auto) 51 44 42-75 % Lymphocytes (%) (Auto) 38 45 H 12-44 % Monocytes (%) (Auto) 5 6 0-12 % Eosinophils (%) (Auto) 5 5 0-10 % Basophils (%) (Auto) 1 0 0-10 % Neutrophils # (Auto) 4.6 4.5 1.8-7.8 X 10^3 Lymphocytes # (Auto) 3.4 4.5 H 1.0-4.0 X 10^3 Monocytes # (Auto) 0.5 0.6 0.0-1.0 X 10^3 Eosinophils # (Auto) 0.4 H 0.5 H 0.0-0.3 10^3/uL Basophils # (Auto) 0.1 0.0 0.0-0.1 10^3/uL Prothrombin Time 12.4 12.2-14.7 SEC INR Comment 0.9 0.8-1.4 Activated Partial Thromboplast Time 28 24-35 SEC Sodium Level 140 141 135-145 MMOL/L Potassium Level 3.6 3.9 3.6-5.0 MMOL/L Chloride Level 102 110 H 98-107 MMOL/L Carbon Dioxide Level 23 19 L 21-32 MMOL/L Anion Gap 15 H 12 5-14 MMOL/L Blood Urea Nitrogen 11 10 7-18 MG/DL Creatinine 0.50 L 0.65 0.60-1.30 MG/DL Estimat Glomerular Filtration Rate > 60 > 60 BUN/Creatinine Ratio 22 15 Glucose Level 257 H 159 H 70-105 MG/DL Calcium Level 9.3 8.6 8.5-10.1 MG/DL Corrected Calcium 9.2 8.8 8.5-10.1 MG/DL Total Bilirubin < 0.2 0.1 0.1-1.0 MG/DL Aspartate Amino Transf (AST/SGOT) 15 16 5-34 U/L Alanine Aminotransferase (ALT/SGPT) 19 21 0-55 U/L Alkaline Phosphatase 80 67 40-136 U/L Troponin I < 0.30 < 0.028 <0.028 NG/ML Pro-B-Type Natriuretic Peptide 73.3 <75.0 PG/ML Total Protein 7.1 6.4 6.4-8.2 GM/DL Albumin 4.1 3.7 3.2-4.5 GM/DL Physical Exam Physical Exam Vital Signs Vital Signs - First Documented 03/23/19 03/23/19 19:52 23:07 Temp 36.4 Pulse 89 Resp 17 B/P (MAP) 117/69 (85) Pulse Ox 97 O2 Delivery Room Air Capillary Refill : Less Than 3 Seconds Height, Weight, BMI Height: 5'1.00" Weight: 182lbs. 0oz. 82.323461te; 37.84 BMI Method:Stated General Appearance: No Apparent Distress Eyes: Bilateral Eye Normal Inspection, Bilateral Eye PERRL, Bilateral Eye EOMI HEENT: PERRL/EOMI, TMs Normal, Normal ENT Inspection, Pharynx Normal, Moist Mucous Membranes Neck: Full Range of Motion, Normal Inspection, Non Tender, Supple, Carotid Bruit Respiratory: Chest Non Tender, Normal Breath Sounds, No Accessory Muscle Use, No Respiratory Distress Cardiovascular: Regular Rate, Rhythm, No Edema, No Gallop, No JVD, No Murmur, Normal Peripheral Pulses Gastrointestinal: Normal Bowel Sounds, No Organomegaly, No Pulsatile Mass, Non Tender, Soft Back: Normal Inspection, No CVA Tenderness, No Vertebral Tenderness Extremity: Normal Capillary Refill, Normal Inspection, Normal Range of Motion, Non Tender, No Calf Tenderness, No Pedal Edema Neurologic/Psychiatric: Alert, Oriented x3, No Motor/Sensory Deficits, Normal Mood/Affect Skin: Normal Color, Warm/Dry Lymphatic: No Adenopathy A/P-Cardiology Admission Diagnosis Chest pain Diabetes mellitus Tobaccoism Family history of atherosclerosis Assessment/Plan Chest pain, nonspecific etiology, atypical in presentation, cardiac enzymes and EKG did not show any acute abnormality, patient has multiple risk factors including diabetes mellitus, strong family history of heart disease and tobaccoism, I will evaluate stress test in addition I'm starting her on PPI Difficulty taking a deep breath, discomfort in her chest. Diabetes mellitus, followed and managed by primary care physician Rajan, educated on smoking cessation Strong family history of heart disease with multiple family members having heart attacks in their 40s Clinical Quality Measures AMI/AHF: ASA po Prior to arrival: No DVT/VTE Risk/Contraindication: Risk Factor Score Per Nursin RFS Level Per Nursing on Admit: 3=High CHIVO DOBBINS MD Mar 24, 2019 08:01
[2019-03-24 08:30] VITALS: BP 95/56
[2019-03-24] MEDS ORDERED: HYDR-3812 PO (08:53)
[2019-03-24] MEDS ORDERED: IBUP-30 PO (08:53)
[2019-03-24] MEDS ORDERED: RANI-609 PO (08:53)
--- NOTE | 2019-03-24 08:56 | NUR ---
SPOKE WITH THE PATIENT ABOUT HER MEDICATIONS. WE WENT OVER THE EXT MED HX AND SHE VERIFIED HOW SHE TAKES THEM. SHE TAKES THE FOLLOWING OTC: ADVIL PRN ZANTAC DAILY SHE STATES SHE RECEIVES SAMPLES OF HER TRULICITY.
[2019-03-24] MEDS ORDERED: PANTOPRAZOLE 40 MG (PROTONIX) TAB PO SCH ×2 (09:00)
[2019-03-24] MEDS ORDERED: DOCUSATE SODIUM 100 MG (COLACE) CAP PO SCH (09:00)
[2019-03-24] MEDS ORDERED: SENNOSIDES 8.6 MG (SENOKOT) TAB PO SCH (09:00)
--- NOTE | 2019-03-24 10:24 | Short Stay Summary-Hospitalist ---
History of Present Illness HPI/Chief Complaint CC: Chest pain HPI: This is a 39yoWF who presented with chest pain has known hx of cardiac cath. Dr. Umanzor did see her in consultation. Echocardiogram performed, stress test will be performed this afternoons to risk stratify, and make a decision whether she can go home. She does smoke and we talked about that. Source: patient Exam Limitations: no limitations Date Seen 03/24/19 Time Seen by a Provider: 10:00 Attending Physician Nanette Abebe DO [facility] Referring Physician Date of Admission Mar 23, 2019 at 21:40 Home Medications & Allergies Home Medications Reviewed patient Home Medication Reconciliation performed by pharmacy medication reconciliations satellite technician and/or nursing. Patients Allergies have been reviewed. Allergies Allergies Coded Allergies levofloxacin (Unverified Adverse Reaction, Intermediate, VOMITS BLOOD, 08/07/18) Uncoded Allergies DEMEROL ( Allergy, Severe, HIVES, 08/07/18) Past Wtykvoa-Crfmnp-Laixdv Hx Past Med/Social Hx: Reviewed Nursing Past Med/Soc Hx, Reviewed and Corrections made Patient Social History Marrital Status: Employed/Student: unemployed Alcohol Use: Denies Use Recreational Drug Use: No Smoking Status: Current Everyday Smoker Type Used: Cigarettes 2nd Hand Smoke Exposure: Yes Recent Foreign Travel: No Contact w/other who traveled: No Recent Hopitalizations: No Recent Infectious Disease Expo: No Seasonal Allergies Seasonal Allergies: No Past Medical History Surgeries: Abdominal, Gallbladder, Hysterectomy, 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 Hysterectomy, 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 Genitourinary: Kidney Stones Gastrointestinal: Diverticulosis Endocrine: Diabetes, Non-Insulin dep Cancer: Cervical Did You Recieve Any Treatments: No What Type of Treatment Did You: Surgical Intervention History of Blood Disorders: No Family History Reviewed Nursing Family Hx Review of Systems Constitutional: see HPI Respiratory: dyspnea on exertion Cardiovascular: chest pain Physical Exam Physical Exam Vital Signs Vital Signs - First Documented 03/23/19 03/23/19 03/24/19 19:52 23:07 14:25 Temp 36.4 Pulse 89 Resp 17 B/P (MAP) 117/69 (85) Pulse Ox 97 O2 Delivery Room Air FiO2 21 Capillary Refill : Less Than 3 Seconds Height, Weight, BMI Height: 5'1.00" Weight: 182lbs. 0oz. 82.916569ht; 37.84 BMI Method:Stated General Appearance: No Apparent Distress, Chronically ill Eyes: Bilateral Eye Normal Inspection, Bilateral Eye PERRL, Bilateral Eye EOMI HEENT: PERRL/EOMI, TMs Normal, Normal ENT Inspection, Pharynx Normal, Moist Mucous Membranes Neck: Full Range of Motion, Normal Inspection, Non Tender, Supple, Carotid Bruit Respiratory: Chest Non Tender, Normal Breath Sounds, No Accessory Muscle Use, No Respiratory Distress Cardiovascular: Regular Rate, Rhythm, No Edema, No Gallop, No JVD, No Murmur, Normal Peripheral Pulses Gastrointestinal: Normal Bowel Sounds, No Organomegaly, No Pulsatile Mass, Non Tender, Soft Back: Normal Inspection, No CVA Tenderness, No Vertebral Tenderness Extremity: Normal Capillary Refill, Normal Inspection, Normal Range of Motion, Non Tender, No Calf Tenderness, No Pedal Edema Neurologic/Psychiatric: Alert, Oriented x3, No Motor/Sensory Deficits, Normal Mood/Affect Skin: Normal Color, Warm/Dry Lymphatic: No Adenopathy Results Results/Procedures Labs Laboratory Tests 03/23/19 20:02 03/24/19 05:23 Patient resulted labs reviewed. Short Stay Diagnosis Discharge Diagnosis-Short Stay Admission Diagnosis Chest pain Smoker Obesity Migraines Final Discharge Diagnosis Chest pain Smoker Obesity Migraines Conclusion Plan DC home since EST and ECHO and CT chest negative Diagnosis/Problems Diagnosis/Problems (1) Other chest pain Status: Acute (2) Headache Status: Acute Clinical Quality Measures AMI/AHF: ASA po Prior to arrival: No DVT/VTE Risk/Contraindication: Risk Factor Score Per Nursin RFS Level Per Nursing on Admit: 3=High NANETTE ABEBE DO Mar 24, 2019 10:23
[2019-03-24 12:00] VITALS: BP 104/64
[2019-03-24] MEDS ORDERED: CATHETER FLUSH 10 ML SYR IV PRN (12:30)
[2019-03-24 14:25] VITALS: BP 104/64
[2019-03-24 16:00] VITALS: BP 101/56
[2019-03-24] MEDS ORDERED: IBUPROFEN 600 MG (MOTRIN) TAB PO NR (17:15)
[2019-03-24] MEDS ORDERED: HOLD METFORMIN - RECEIVED CONTRAST 20 ML VIAL IV SCH (17:15)
[2019-03-24] MEDS ORDERED: NS 100 ML (IVPB) BAG IV ONE (17:15)
[2019-03-24] MEDS ORDERED: IOHEXOL 350 MG/ML 100 ML (OMNIPAQUE 350) VIAL IV ONE (17:15)
--- NOTE | 2019-03-24 17:42 | Diagnostic Imaging Report ---
PROCEDURE: CT angiography of the chest with contrast. TECHNIQUE: Multiple contiguous axial images were obtained through the chest after uneventful bolus administration of intravenous contrast. 3D reconstructed CTA MIP acquisitions were also performed. Auto Exposure Controls were utilized during the CT exam to meet ALARA standards for radiation dose reduction. INDICATION: Chest pain for 4 days and shortness of breath. CORRELATION is made with prior chest from 12/08/2018. There is some dilatation of the pulmonary arterial system, similar to prior exam, perhaps on the basis of pulmonary arterial hypertension. No filling defects are seen to suggest pulmonary emboli. Thoracic aorta is normal caliber. There is no dissection. No pericardial or pleural fluid is identified. No significant infiltrate, nodule or mass is detected. Upper abdomen is unremarkable. IMPRESSION: Findings suggestive of pulmonary arterial hypertension. No pulmonary emboli are detected. Dictated by: Dictated on workstation # [id number]
[2019-03-24] MEDS ORDERED: KETOROLAC 30 MG/ML VIAL IVP NR (19:00)
[2019-03-24] MEDS ORDERED: PROMETHAZINE INJ 25 MG/ML (PHENERGAN) AMP IM NR (19:00)
--- NOTE | 2019-03-24 20:15 | NUR ---
BERNARDA TORIBIO demonstrates understanding of discharge instructions and accurately returns instructions upon questioning. Copy of Post-Discharge Instructions given to . BERNARDA TORIBIO is able to manage continuing needs after discharge. Patient took all belongings. Patient discharged from [facility]- on 03/24/19 at 2015. BERNARDA TORIBIO left floor via , accompanied by IVY Corrales.
--- NOTE | 2019-03-25 12:50 | STRESS TEST ---
DATE OF SERVICE: AN EXERCISE MYOVIEW STRESS TEST REPORT REFERRING PHYSICIAN: [facility]. Baseline heart rate is 73, baseline blood pressure 107/63. Baseline EKG is sinus rhythm with no ischemic changes. In summary, the patient was injected with 10.9 mCi of technetium-99 Myoview and the resting images were obtained. Then, the patient started exercising with a baseline heart rate, blood pressure and EKG mentioned above. She was able to exercise for 5 minutes and 50 seconds on standard Arturo protocol. With peak exercise level, the patient was given 32.6 mCi of technetium-99 Myoview. EKG was showing no ischemic changes. Blood pressure was 132/51. During recovery, heart rate and blood pressure returned to baseline. EKG returned to baseline. The resting and stress images were reviewed and compared in the short axis, horizontal long axis, and vertical long axis views. Review of the images showed breast attenuation with typical female pattern. There is decreased uptake involving the mid anterior wall and anterolateral wall due to the breast attenuation with no significant reversibility. SSS is 3, SDS 3, TID value 1.02. On the gated images, the left ventricle appeared to be a normal size with normal contractility. Calculated ejection fraction is 62%. CONCLUSION: 1. Good exercise tolerance for a total of 5 minutes and 50 seconds on standard Arturo protocol, total of 7.1 METS achieving 88% of maximum expected heart rate. 2. No EKG changes with exercise. 3. Appropriate heart rate and blood pressure response to exercise returned to baseline during recovery. 4. Breast attenuation with typical female pattern with no significant ischemia or infarction on SPECT images. 5. Normal left ventricular size with normal contractility. Calculated ejection fraction is 62%. Job ID: [id number] DocumentID: [id number] Dictated Date: 03/25/2019 11:53:27 As400 Consultant Date: 03/25/2019 12:49:41 Dictated By: CHIVO DOBBINS MD
== END 2019-03-24 20:15 | disposition home or self-care (01) | DRG 313 ==
LOC: EDUNIT# 19:35 → ER FS 19:37 → 4TH 21:40
PROVIDERS: ADMIT Internal Medicine; ATTEND Internal Medicine
DX: R07.89 Other chest pain (principal); E78.5 Hyperlipidemia, unspecified; E11.9 Type 2 diabetes mellitus without complications; F17.210 Nicotine dependence, cigarettes, uncomplicated; Z90.710 Acquired absence of both cervix and uterus; E66.9 Obesity, unspecified; G43.909 Migraine, unspecified, not intractable, without status migrainosus; Z68.37 Body mass index [BMI] 37.0-37.9, adult
CPT/HCPCS: 36415; 71045; 71275; 78452; 80053; 83880; 84484; 85025; 85610; 85730; 93005; 93017; 93306; G0378

== ENCOUNTER 2019-04-10 16:18 | Emergency (ER) | payer SELFPAY ==
[~2019-04-10] VITALS: Ht 154.9 cm; Wt 88.2 kg
[~2019-04-10 16:18] MED LIST changes: +HYDR-3812 PO; +IBUP-30 PO; +RANI-609 PO; +SERT100T8 PO
--- NOTE | 2019-04-10 16:56 | ED GI ---
General Chief Complaint: Abdominal/GI Problems Stated Complaint: BLOOD IN VOMIT/STOOL Source of Information: Patient Exam Limitations: No Limitations History of Present Illness Date Seen by Provider: Apr 10, 2019 Time Seen by Provider: 16:40 Initial Comments The patient is a 39-year-old female who presents for evaluation of hematemesis and dark stools over the last 3-4 days. She states that she's been having some epigastric abdominal discomfort and has a history of H. pylori. She takes iron pills and last took one on Saturday, 3 days ago. She denies fevers or chills, bright red blood per rectum, any other abdominal discomfort, back pain, chest pain or shortness of breath, dizziness or syncope. She is alert and oriented 4, calm, and appears to be in no distress. Timing/Duration: 3-4 Days Severity/Quality: Moderate Location: Epigastric Radiation: No Radiation Activities at Onset: None Associated Symptoms: Denies Symptoms Allergies and Home Medications Allergies Coded Allergies: levofloxacin (Unverified Adverse Reaction, Intermediate, VOMITS BLOOD, 08/07/18) Uncoded Allergies: DEMEROL (Allergy, Severe, HIVES, 08/07/18) Home Medications Dulaglutide 0.75 Mg/0.5 Ml Pen.injctr, 0.75 MG SQ Th, (Reported) Hydrocodone/Acetaminophen 1 Each Tablet, 1 TAB PO Q8H PRN for PAIN-MODERATE (5- 7), (Reported) Ibuprofen 200 Mg Tablet, 800 MG PO TID PRN for PAIN-MILD (1-4), (Reported) Ranitidine HCl 150 Mg Tablet, 150 MG PO DAILY, (Reported) Sertraline HCl 100 Mg Tablet, 100 MG PO DAILY, (Reported) Patient Home Medication List Home Medication List Reviewed: Yes Review of Systems Review of Systems Constitutional: no symptoms reported EENTM: No Symptoms Reported Respiratory: No Symptoms Reported Cardiovascular: No Symptoms Reported Gastrointestinal: No Symptoms Reported, Nausea, Vomiting, Other (hematemesis, dark stools) Genitourinary: No Symptoms Reported Musculoskeletal: no symptoms reported Skin: no symptoms reported Psychiatric/Neurological: No Symptoms Reported Endocrine: No Symptoms Reported Hematologic/Lymphatic: No Symptoms Reported All Other Systems Reviewed Negative Unless Noted: Yes Past Prnsblg-Minlgw-Khpuvb Hx Past Med/Social Hx: Reviewed Nursing Past Med/Soc Hx Patient Social History Type Used: Cigarettes 2nd Hand Smoke Exposure: Yes Recent Foreign Travel: No Contact w/Someone Who Travel: No Recent Hopitalizations: No Seasonal Allergies Seasonal Allergies: No Past Medical History Surgeries: Yes Abdominal, Gallbladder, Hysterectomy, 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 Respiratory: No 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 (ENLARGED RIGHT HEART-PFO) 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 0oz. 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 tested, no motor/sensory deficits, alert, normal mood/affect, oriented x 3 Skin: normal color, warm/dry Progress/Results/Core Measures Results/Orders Lab Results Laboratory Tests Test 04/10/19 16:40 04/10/19 17:00 Range/Units Urine Color YELLOW Urine Clarity CLEAR Urine pH 6.0 5-9 Urine Specific Pinson <=1.005 1.016-1.022 Urine Protein NEGATIVE NEGATIVE Urine Glucose (UA) NEGATIVE NEGATIVE Urine Ketones NEGATIVE NEGATIVE Urine Nitrite NEGATIVE NEGATIVE Urine Bilirubin NEGATIVE NEGATIVE Urine Urobilinogen 0.2 < = 1.0 MG/DL Urine Leukocyte Esterase NEGATIVE NEGATIVE Urine RBC (Auto) TRACE H NEGATIVE Urine RBC 0-2 /HPF Urine WBC 0-2 /HPF Urine Squamous Epithelial Cells 10-25 H /HPF Urine Crystals NONE /LPF Urine Bacteria MODERATE H /HPF Urine Casts NONE /LPF Urine Mucus NEGATIVE /LPF Urine Culture Indicated NO White Blood Count 8.5 4.3-11.0 10^3/uL Red Blood Count 4.21 L 4.35-5.85 10^6/uL Hemoglobin 11.9 11.5-16.0 G/DL Hematocrit 36 35-52 % Mean Corpuscular Volume 85 80-99 FL Mean Corpuscular Hemoglobin 28 25-34 PG Mean Corpuscular Hemoglobin Concent 33 32-36 G/DL Red Cell Distribution Width 13.8 10.0-14.5 % Platelet Count 332 130-400 10^3/uL Mean Platelet Volume 8.7 7.4-10.4 FL Neutrophils (%) (Auto) 43 42-75 % Lymphocytes (%) (Auto) 47 H 12-44 % Monocytes (%) (Auto) 4 0-12 % Eosinophils (%) (Auto) 6 0-10 % Basophils (%) (Auto) 0 0-10 % Neutrophils # (Auto) 3.6 1.8-7.8 X 10^3 Lymphocytes # (Auto) 4.0 1.0-4.0 X 10^3 Monocytes # (Auto) 0.4 0.0-1.0 X 10^3 Eosinophils # (Auto) 0.5 H 0.0-0.3 10^3/uL Basophils # (Auto) 0.0 0.0-0.1 10^3/uL Sodium Level 139 135-145 MMOL/L Potassium Level 3.8 3.6-5.0 MMOL/L Chloride Level 100 98-107 MMOL/L Carbon Dioxide Level 25 21-32 MMOL/L Anion Gap 14 5-14 MMOL/L Blood Urea Nitrogen 9 7-18 MG/DL Creatinine 0.49 L 0.60-1.30 MG/DL Estimat Glomerular Filtration Rate > 60 BUN/Creatinine Ratio 18 Glucose Level 138 H 70-105 MG/DL Calcium Level 9.6 8.5-10.1 MG/DL Corrected Calcium 9.4 8.5-10.1 MG/DL Total Bilirubin < 0.2 0.1-1.0 MG/DL Aspartate Amino Transf (AST/SGOT) 16 5-34 U/L Alanine Aminotransferase (ALT/SGPT) 24 0-55 U/L Alkaline Phosphatase 76 40-136 U/L Total Protein 7.2 6.4-8.2 GM/DL Albumin 4.2 3.2-4.5 GM/DL Lipase 21 8-78 U/L My Orders Orders - HORTENSIA RABAGO DO Cbc With Automated Diff (04/10/19 16:34) Comprehensive Metabolic Panel (04/10/19 16:34) Lipase (04/10/19 16:34) Ua Culture If Indicated (04/10/19 16:34) Ed Iv/Invasive Line Start (04/10/19 16:34) Lidocaine 2% Viscous 15 Ml (Xylocaine Vi (04/10/19 17:00) Antacid Suspension (Mylanta Suspension (04/10/19 17:00) Ondansetron Injection (Zofran Injectio (04/10/19 17:00) Ns Iv 1000 Ml (Sodium Chloride 0.9%) (04/10/19 17:00) Occult Blood Stool (04/10/19 16:51) Pantoprazole Injection (Protonix Injecti (04/10/19 17:00) Type And Screen (04/10/19 16:52) Medications Given in ED Current Medications Medications Dose Ordered Sig/Tory Route Start Time Stop Time Status Last Admin Dose Admin Al Hydrox/Mg Hydrox/Simethicone 30 ml ONCE ONCE PO 04/10/19 17:00 04/10/19 17:01 DC 04/10/19 17:30 30 ML Lidocaine HCl 15 ml ONCE ONCE PO 04/10/19 17:00 04/10/19 17:01 DC 04/10/19 17:30 15 ML Ondansetron HCl 4 mg ONCE ONCE IVP 04/10/19 17:00 04/10/19 17:01 DC 04/10/19 17:30 4 MG Pantoprazole 40 mg ONCE ONCE IV 04/10/19 17:00 04/10/19 17:01 DC 04/10/19 17:30 40 MG Progress Progress Note : Progress Note @5119 - patient updated on lab results. She declines rectal exam. She states she is feeling better and wants to go home. Her hemoglobin is reassuring. I strongly advised the patient to follow up with general surgery for an outpatient colonoscopy in the next 1-2 days. Advised the patient that it is very important to return to the emergency Department immediately for worsening pain, bleeding, new or worsening symptoms. The patient expresses verbal understanding and agreement with the plan and is stable for discharge home. Departure Impression Primary Impression: Epigastric abdominal pain Additional Impression: Dark stools Disposition: 01 HOME, SELF-CARE Condition: Stable Departure-Patient Inst. Referrals: ANKIT WATSON (Family) Primary Care Physician TOMAS DEY DO Patient Instructions: Peptic Ulcers Add. Discharge Instructions: Follow-up with Dr. Dey in the next 1-2 days as he can help you with a colonoscopy. Take the prescribed medicine as directed. Return to the emergency D epartment immediately for worsening pain, bleeding, new or worsening symptoms. Scripts Hydrocodone/Acetaminophen ([place] 5-325 Tablet) 1 Each Tablet 1 TAB PO Q4-6HR for Pain MDD 10 TABS for 7 Days, #15 TAB Prov: HORTENSIA RABAGO DO 04/10/19 Ondansetron (Ondansetron Odt) 4 Mg Tab.rapdis 4 MG PO Q6H PRN for NAUSEA/VOMITING-1ST LINE for 5 Days, #20 TAB Prov: HORTENSIA RABAGO DO 04/10/19 Pantoprazole Sodium (Protonix) 40 Mg Tablet.dr 40 MG PO DAILY for 30 Days, #30 TAB Prov: HORTENSIA RABAGO DO 04/10/19 HORTENSIA RABAGO DO Apr 10, 2019 16:56
[2019-04-10] MEDS ORDERED: LIDOCAINE 2% VISCOUS 15 ML UDC PO ONE (17:00)
[2019-04-10] MEDS ORDERED: PANTOPRAZOLE 40 MG (PROTONIX) VIAL IV ONE (17:00)
[2019-04-10] MEDS ORDERED: NS IV 1000 ML 1,000 ML IV SCH (17:00)
[2019-04-10] MEDS ORDERED: ANTACID SUSP 30 ML UDC (MYLANTA) PO ONE (17:00)
[2019-04-10] MEDS ORDERED: ONDANSETRON 4 MG/2 ML (SDV) Z0FRAN IVP ONE (17:00)
[2019-04-10 17:24] LABS: BILIRUBIN,URINE NEGATIVE (NEGATIVE); CLARITY,URINE CLEAR; COLOR,URINE YELLOW; GLUCOSE, URINE (UA) NEGATIVE (NEGATIVE); KETONES,URINE NEGATIVE (NEGATIVE); LEUKOCYTE ESTERASE ,URINE NEGATIVE (NEGATIVE); NITRITE,URINE NEGATIVE (NEGATIVE); PROTEIN,URINE NEGATIVE (NEGATIVE)
[2019-04-10 17:25] LABS: BACTERIA,URINE MODERATE /HPF; RBC,URINE 0-2 /HPF; WBC,URINE 0-2 /HPF
[2019-04-10 17:25] LABS: HEMATOCRIT 36 % (35-52); HEMOGLOBIN 11.9 G/DL (11.5-16.0); MEAN CORPUSCULAR HEMOGLOBIN 28 PG (25-34); MEAN CORPUSCULAR VOLUME 85 FL (80-99); WHITE BLOOD COUNT 8.5 10^3/uL (4.3-11.0)
[2019-04-10 17:26] LABS: BASOPHILS % (AUTO) 0 % (0-10); EOSINOPHILS % (AUTO) 6 % (0-10); LYMPHOCYTES % (AUTO) 47 % (12-44); MEAN CORPUSCULAR HGB CONC 33 G/DL (32-36); MEAN PLATELET VOLUME 8.7 FL (7.4-10.4); MONOCYTES % (AUTO) 4 % (0-12); NEUTROPHILS % (AUTO) 43 % (42-75); PLATELET COUNT 332 10^3/uL (130-400); RED CELL DISTRIBUTION WIDTH 13.8 % (10.0-14.5)
[2019-04-10 17:27] LABS: EOSINOPHILS # (AUTO) 0.5 10^3/uL (0.0-0.3); MONOCYTES # (AUTO) 0.4 X 10^3 (0.0-1.0); NEUTROPHILS # (AUTO) 3.6 X 10^3 (1.8-7.8)
[2019-04-10 17:41] LABS: ALANINE AMINOTRANSFERASE 24 U/L (0-55); ALKALINE PHOSPHATASE 76 U/L (40-136); BILIRUBIN,TOTAL < 0.2 MG/DL (0.1-1.0); BUN/CREATININE RATIO 18; CALCIUM 9.6 MG/DL (8.5-10.1); CARBON DIOXIDE 25 MMOL/L (21-32); CHLORIDE 100 MMOL/L (98-107); CREATININE SERUM 0.49 MG/DL (0.60-1.30); GFR ESTIMATED > 60; GLUCOSE 138 MG/DL (70-105); POTASSIUM 3.8 MMOL/L (3.6-5.0); SODIUM 139 MMOL/L (135-145)
[2019-04-10 17:42] LABS: ALBUMIN 4.2 GM/DL (3.2-4.5); LIPASE 21 U/L (8-78); TOTAL PROTEIN 7.2 GM/DL (6.4-8.2)
[2019-04-10] MEDS ORDERED: PANT40TA2 PO (17:52)
[2019-04-10] MEDS ORDERED: ONDA4TAB11 PO (17:52)
[2019-04-10] MEDS ORDERED: HYDR-4226 PO (17:52)
[2019-04-10 18:00] VITALS: BP 114/69
== END 2019-04-10 18:00 | disposition home or self-care (01) ==
LOC: EDUNIT# 16:18 → ER FS 16:20
DX: R10.13 Epigastric pain (principal); R19.5 Other fecal abnormalities; E11.9 Type 2 diabetes mellitus without complications; Z88.1 Allergy status to other antibiotic agents; Z88.8 Allergy status to other drugs, medicaments and biological substances; Z87.19 Personal history of other diseases of the digestive system; Z85.41 Personal history of malignant neoplasm of cervix uteri
CPT/HCPCS: 36415; 80053; 81000; 83690; 85025; 96374; 96375

== ENCOUNTER 2019-08-31 18:33 | Emergency (ER) | payer SELFPAY ==
[~2019-08-31] VITALS: Ht 154.9 cm; Wt 68.2 kg
[~2019-08-31 18:33] MED LIST changes: -HYDR-3812 PO; +PANT40TA2 PO
--- NOTE | 2019-08-31 18:47 | ED Chest Pain ---
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 She states it is substernal and radiates to the left shoulder and she is having some paresthesias to the left arm. She has had similar chest pain previously but the left shoulder/arm tingling is different and she also mentions that when she takes deep breath it makes the pain worse. She has no history of DVT or PE, denies shortness of breath or cough, fevers or chills, palpitations, dizziness or syncope. She took an Excedrin tablet earlier today which contained aspirin. She does report some mild nausea currently and states that she had an episode of vomiting earlier today around 1500. She is alert and oriented 4, calm, and appears to be in no distress at this time. 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: Yes NTG SL ICE CREAM DISPENSER: No Associated Symptoms: nausea/vomiting Allergies and Home Medications Allergies Coded Allergies: levofloxacin (Unverified Adverse Reaction, Intermediate, VOMITS BLOOD, 08/07/18) Uncoded Allergies: DEMEROL (Allergy, Severe, HIVES, 08/07/18) Home Medications Dulaglutide 0.75 Mg/0.5 Ml Pen.injctr, 0.75 MG SQ Th, (Reported) Hydrocodone Bit/Acetaminophen 1 Each Tablet, 1 TAB PO Q8H PRN for PAIN-MODERATE (5-7), (Reported) Hydrocodone/Acetaminophen 1 Each Tablet, 1 TAB PO Q4-6HR Prescribed by: HORTENSIA RABAGO on 04/10/191751 Ibuprofen 200 Mg Tablet, 800 MG PO TID PRN for PAIN-MILD (1-4), (Reported) Ondansetron 4 Mg Tab.rapdis, 4 MG PO Q6H PRN for NAUSEA/VOMITING-1ST LINE Prescribed by: HORTENSIA RABAGO on 04/10/191751 Pantoprazole Sodium 40 Mg Tablet.dr, 40 MG PO DAILY Prescribed by: HORTENSIA RABAGO on 04/10/19 1752 Ranitidine HCl 150 Mg Tablet, 150 MG PO DAILY, (Reported) Sertraline HCl 100 Mg Tablet, 100 MG PO DAILY, (Reported) Patient Home Medication List Home Medication List Reviewed: Yes Review of Systems Review of Systems Constitutional: no symptoms reported EENTM: No Symptoms Reported Respiratory: No Symptoms Reported Cardiovascular: Chest Pain Gastrointestinal: Nausea, Vomiting Genitourinary: No Symptoms Reported Musculoskeletal: no symptoms reported Skin: no symptoms reported Psychiatric/Neurological: No Symptoms Reported Endocrine: No Symptoms Reported Hematologic/Lymphatic: No Symptoms Reported All Other Systems Reviewed Negative Unless Noted: Yes Past Frhpiek-Vbwehc-Pxxjcu Hx Past Med/Social Hx: Reviewed Nursing Past Med/Soc Hx Patient Social History Type Used: Cigarettes 2nd Hand Smoke Exposure: Yes Recent Foreign Travel: No Contact w/Someone Who Travel: No Recent Hopitalizations: No Seasonal Allergies Seasonal Allergies: No Past Medical History Surgeries: Yes Abdominal, Gallbladder, Hysterectomy, 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 Respiratory: No 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 (ENLARGED RIGHT HEART-PFO) 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 0oz. 82.353742rn; 36.00 BMI Method:Stated General Appearance: No Apparent Distress, WD/WN HEENT: PERRL/EOMI, Pharynx Normal Neck: Full Range of Motion, Normal Inspection, Non Tender Respiratory: Lungs Clear, Normal Breath Sounds, No Accessory Muscle Use, No Respiratory Distress Cardiovascular: Regular Rate, Rhythm, No Edema, No JVD, Normal Peripheral Pulses Gastrointestinal: Normal Bowel Sounds, No Pulsatile Mass, Non Tender, Soft Extremity: Normal Capillary Refill, Normal Inspection, Normal Range of Motion, Non Tender, No Calf Tenderness Neurologic/Psychiatric: Alert, Oriented x3, No Motor/Sensory Deficits, Normal Mood/Affect, needlemaker II-XII Norm as Tested Skin: Normal Color, Warm/Dry Progress/Results/Core Measures Results/Orders Lab Results Laboratory Tests Test 08/31/19 18:58 Range/Units White Blood Count 9.1 4.3-11.0 10^3/uL Red Blood Count 4.11 L 4.35-5.85 10^6/uL Hemoglobin 11.9 11.5-16.0 G/DL Hematocrit 35 35-52 % Mean Corpuscular Volume 86 80-99 FL Mean Corpuscular Hemoglobin 29 25-34 PG Mean Corpuscular Hemoglobin Concent 34 32-36 G/DL Red Cell Distribution Width 12.9 10.0-14.5 % Platelet Count 296 130-400 10^3/uL Mean Platelet Volume 8.8 7.4-10.4 FL Neutrophils (%) (Auto) 48 42-75 % Lymphocytes (%) (Auto) 43 12-44 % Monocytes (%) (Auto) 4 0-12 % Eosinophils (%) (Auto) 4 0-10 % Basophils (%) (Auto) 0 0-10 % Neutrophils # (Auto) 4.4 1.8-7.8 X 10^3 Lymphocytes # (Auto) 3.9 1.0-4.0 X 10^3 Monocytes # (Auto) 0.4 0.0-1.0 X 10^3 Eosinophils # (Auto) 0.3 0.0-0.3 10^3/uL Basophils # (Auto) 0.0 0.0-0.1 10^3/uL Prothrombin Time 12.5 12.2-14.7 SEC INR Comment 0.9 0.8-1.4 Activated Partial Thromboplast Time 27 24-35 SEC D-Dimer 0.28 0.00-0.49 UG/ML Sodium Level 141 135-145 MMOL/L Potassium Level 3.9 3.6-5.0 MMOL/L Chloride Level 105 98-107 MMOL/L Carbon Dioxide Level 22 21-32 MMOL/L Anion Gap 14 5-14 MMOL/L Blood Urea Nitrogen 11 7-18 MG/DL Creatinine 0.61 0.60-1.30 MG/DL Estimat Glomerular Filtration Rate > 60 BUN/Creatinine Ratio 18 Glucose Level 112 H 70-105 MG/DL Calcium Level 9.3 8.5-10.1 MG/DL Corrected Calcium 9.3 8.5-10.1 MG/DL Total Bilirubin 0.2 0.1-1.0 MG/DL Aspartate Amino Transf (AST/SGOT) 17 5-34 U/L Alanine Aminotransferase (ALT/SGPT) 19 0-55 U/L Alkaline Phosphatase 65 40-136 U/L Troponin I < 0.30 <0.30 NG/ML Pro-B-Type Natriuretic Peptide 10.6 <75.0 PG/ML Total Protein 6.9 6.4-8.2 GM/DL Albumin 4.0 3.2-4.5 GM/DL My Orders Orders - HORTENSIA RABAGO DO Chest 1 View Ap/Pa Only (08/31/19 18:37) Ekg Tracing (08/31/19 18:37) O2 (08/31/19 18:37) Monitor-Rhythm Ecg Trace Only (08/31/19 18:37) Ed Iv/Invasive Line Start (08/31/19 18:37) Cbc With Automated Diff (08/31/19 18:45) Fibrin Degradation Products (08/31/19 18:45) Protime With Inr (08/31/19 18:45) Partial Thromboplastin Time (08/31/19 18:45) Comprehensive Metabolic Panel (08/31/19 18:45) Probnp Fs (08/31/19 18:45) Troponin I Fs (08/31/19 18:45) Ondansetron Injection (Zofran Injectio (08/31/19 19:30) Medications Given in ED Current Medications Medications Dose Ordered Sig/Tory Route Start Time Stop Time Status Last Admin Dose Admin Ondansetron HCl 4 mg ONCE ONCE IVP 08/31/19 19:30 08/31/19 19:31 DC 08/31/19 19:36 4 MG Vital Signs/I&O 08/31/19 08/31/19 18:33 18:33 Temp 37.1 Pulse 93 Resp 18 B/P (MAP) 148/85 (106) Pulse Ox 98 O2 Delivery Room Air Room Air Progress Progress Note : Progress Note @1999 - the patient has been pain-free since arrival. Patient updated on all lab and imaging results which are reassuring other than a possible infiltrate on chest x-ray. The patient denies any cough but does feel like she has had some mild shortness of breath and would like to be treated with antibiotics for this. Advised the patient to follow up with her PCP within the next 1-2 days and to return to the emergency Department immediately for new or worsening symptoms. She has no other concerns or complaints and states that she would like to be discharged home at this time. Comment @1850 - Normal sinus rhythm, rate of 83, normal axis, no acute ischemic findings noted, no STEMI, reviewed and interpreted as Diagnostic Imaging Diagonstic Imaging: Xray Comments [facility]. [place], [place] NAME: BERNARDA TORIBIO [facility] REC#: [id number] PT STATUS: REG ER : 1980 PHYSICIAN: HORTENSIA RABAGO DO ADMIT DATE: 08/31/19/ER FS Signed Date of Exam:08/31/19 CHEST 1 VIEW AP/PA ONLY INDICATION: Chest pain EXAMINATION: Chest 08/31/2019 FINDINGS: Mild right infrahilar atelectasis noted, infiltrate felt to be less likely. The heart unremarkable. Pulmonary vasculature normal. No effusions, no pneumothorax. IMPRESSION: 1. Right infrahilar atelectasis with early infiltrate not excluded; correlate with symptoms. Dictated by: Dictated on workstation # [id number] Dict: 08/31/191919 Trans: 08/31/191926 [facility] [id number] Interpreted by: DARCI CORBIN MD Electronically signed by: DARCI CORBIN MD 08/31/191926 Departure Impression Primary Impression: Chest pain Additional Impression: Infiltrate of lung present on chest x-ray Disposition: 01 HOME, SELF-CARE Condition: Stable Departure-Patient Inst. Decision time for Depature: 20:02 Referrals: [facility] (PCP) Primary Care Physician ANKIT WATSON (Family) Primary Care Physician Patient Instructions: Chest Pain That Is Not Caused by the Heart (DC), Community-Acquired Pneumonia in Adults Add. Discharge Instructions: Because the radiologist felt there could be an early pneumonia he has been prescribed antibiotics so please taken as directed. Return to the emergency Department immediately for difficulty breathing, new or worsening symptoms. Follow-up with your doctor in the next 1-2 days Scripts Azithromycin (Azithromycin) 250 Mg Tablet 250 MG PO UD for pneumonia, #6 TAB TAKE 2 TABLETS ON DAY ONE THEN TAKE 1 TABLET DAILY FOR FOUR MORE DAYS Prov: HORTENSIA RABAGO DO 08/31/19 HORTENSIA RABAGO DO Aug 31, 2019 18:47
[2019-08-31 19:06] LABS: EOSINOPHILS % (AUTO) 4 % (0-10); HEMATOCRIT 35 % (35-52); HEMOGLOBIN 11.9 G/DL (11.5-16.0); LYMPHOCYTES % (AUTO) 43 % (12-44); MEAN CORPUSCULAR HEMOGLOBIN 29 PG (25-34); MEAN CORPUSCULAR HGB CONC 34 G/DL (32-36); MEAN CORPUSCULAR VOLUME 86 FL (80-99); MEAN PLATELET VOLUME 8.8 FL (7.4-10.4); MONOCYTES % (AUTO) 4 % (0-12); NEUTROPHILS % (AUTO) 48 % (42-75); PLATELET COUNT 296 10^3/uL (130-400); RED CELL DISTRIBUTION WIDTH 12.9 % (10.0-14.5); WHITE BLOOD COUNT 9.1 10^3/uL (4.3-11.0)
[2019-08-31 19:07] LABS: BASOPHILS % (AUTO) 0 % (0-10); EOSINOPHILS # (AUTO) 0.3 10^3/uL (0.0-0.3); LYMPHOCYTES # (AUTO) 3.9 X 10^3 (1.0-4.0); MONOCYTES # (AUTO) 0.4 X 10^3 (0.0-1.0); NEUTROPHILS # (AUTO) 4.4 X 10^3 (1.8-7.8)
--- NOTE | 2019-08-31 19:26 | Diagnostic Imaging Report ---
INDICATION: Chest pain EXAMINATION: Chest 08/31/2019 FINDINGS: Mild right infrahilar atelectasis noted, infiltrate felt to be less likely. The heart unremarkable. Pulmonary vasculature normal. No effusions, no pneumothorax. IMPRESSION: 1. Right infrahilar atelectasis with early infiltrate not excluded; correlate with symptoms. Dictated by: Dictated on workstation # [id number]
[2019-08-31] MEDS ORDERED: ONDANSETRON 4 MG/2 ML (SDV) Z0FRAN IVP ONE (19:30)
[2019-08-31 19:32] LABS: CARBON DIOXIDE 22 MMOL/L (21-32); CHLORIDE 105 MMOL/L (98-107); POTASSIUM 3.9 MMOL/L (3.6-5.0); SODIUM 141 MMOL/L (135-145)
[2019-08-31 19:33] LABS: ALANINE AMINOTRANSFERASE 19 U/L (0-55); ALKALINE PHOSPHATASE 65 U/L (40-136); BILIRUBIN,TOTAL 0.2 MG/DL (0.1-1.0); BUN/CREATININE RATIO 18; CALCIUM 9.3 MG/DL (8.5-10.1); CREATININE SERUM 0.61 MG/DL (0.60-1.30); GFR ESTIMATED > 60; GLUCOSE 112 MG/DL (70-105); TOTAL PROTEIN 6.9 GM/DL (6.4-8.2)
[2019-08-31 19:45] LABS: FIBRIN DEGRADATION PRODUCTS 0.28 UG/ML (0.00-0.49); INR 0.9 (0.8-1.4); PROTHROMBIN TIME PATIENT 12.5 SEC (12.2-14.7)
[2019-08-31] MEDS ORDERED: AZIT250T12 PO (20:04)
[2019-08-31 20:07] VITALS: BP 108/88
--- OUTSIDE RECORDS SUMMARY | 2019-08-31 20:10 | XMS REPORT | Continuity of Care Document ---
Author Organization Unknown Address Unknown Phone Unavailable Allergies Active Description Code Type Severity Reaction Onset Reported/Identified Relationship to Patient Clinical Status Yes No Allergy Information Available [id number] Drug Allergy Unknown N/A 019 Yes DEMEROL DEMEROL Severe HIVES 08/07/2018 Yes levofloxacin [id number] Drug Allergy Moderate VOMITS BLOOD 08/07/2018 Yes hydrocodone [id number] Drug Aller gy Mild MIGRAINE HEADAC 08/07/2018 Medications There is no data. Problems Date Dx Coded Attending Type Code Diagnosis Diagnosed By 06/16/2018 ANKIT WATSON TEACHING FELLOW Ot K57.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 W/O PERFORATION OR AB 06/16/2018 ANKIT WATSON TEACHING FELLOW Ot K76.0 FATTY (CHANGE OF) LIVER, NOT ELSEWHERE C 06/16/2018 ANKIT WATSON TEACHING FELLOW Ot N28.1 CYST OF KIDNEY, ACQUIRED 06/16/2018 ANKIT WATSON TEACHING FELLOW Ot Z90.49 ACQUIRED ABSENCE OF OTHER SPECIFIED PART 06/17/2018 CHAVA WATSONA Becki TEACHING FELLOW Ot K57.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 W/O PERFORATION OR AB 06/17/2018 ANKIT WATSON TEACHING FELLOW Ot K76.0 FATTY (CHANGE OF) LIVER, NOT ELSEWHERE C 06/17/2018 ANKIT WATSON TEACHING FELLOW Ot N28.1 CYST OF KIDNEY, ACQUIRED 06/17/2018 CHAVA WATSONA Becki TEACHING FELLOW Ot Z90.49 ACQUIRED ABSENCE OF OTHER SPECIFIED PART 06/18/2018 ANKIT WATSON TEACHING FELLOW Ot K57.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 W/O PERFORATION OR AB 06/18/2018 CHAVA WATSONA Becki TEACHING FELLOW Ot K76.0 FATTY (CHANGE OF) LIVER, NOT ELSEWHERE C 06/18/2018 KELLSTADT, ANKIT L TEACHING FELLOW Ot N28.1 CYST OF KIDNEY, ACQUIRED 06/18/2018 KELLSTADT ANKIT L TEACHING FELLOW Ot Z90.49 ACQUIRED ABSENCE OF OTHER SPECIFIED PART 06/18/2018 KELLSTADT, ANKIT L TEACHING FELLOW Ot K57.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 W/O PERFORATION OR AB 06/18/2018 KELLSTADT ANKIT L TEACHING FELLOW Ot K76.0 FATTY (CHANGE OF) LIVER, NOT ELSEWHERE C 06/18/2018 KELLSTADT ANKIT L TEACHING FELLOW Ot N28.1 CYST OF KIDNEY, ACQUIRED 06/18/2018 KELLSTADT, ANKIT L TEACHING FELLOW Ot Z90.49 ACQUIRED ABSENCE OF OTHER SPECIFIED PART 08/07/2018 KELLSTADT, ANKIT L TEACHING FELLOW Ot K57.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 W/O PERFORATION OR AB 08/07/2018 KELLSTADT, ANKIT L TEACHING FELLOW Ot K76.0 FATTY (CHANGE OF) LIVER, NOT ELSEWHERE C 08/07/2018 KELLSTADT ANKIT L TEACHING FELLOW Ot N28.1 CYST OF KIDNEY, ACQUIRED 08/07/2018 KELLSTADT, ANKIT L TEACHING FELLOW Ot Z90.49 ACQUIRED ABSENCE OF OTHER SPECIFIED PART 08/07/2018 KELLSTADT, ANKIT L TEACHING FELLOW Ot K57.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 W/O PERFORATION OR AB 08/07/2018 KELLSTADT, ANKIT L TEACHING FELLOW Ot K76.0 FATTY (CHANGE OF) LIVER, NOT ELSEWHERE C 08/07/2018 KELLSTADT ANKIT L TEACHING FELLOW Ot N28.1 CYST OF KIDNEY, ACQUIRED 08/07/2018 KELLSTADT, ANKIT L TEACHING FELLOW Ot Z90.49 ACQUIRED ABSENCE OF OTHER SPECIFIED PART 08/11/2018 GAOR PEMBERTON MD, Ot E11.9 TYPE 2 DIABETES MELLITUS WITHOUT COMPLIC 08/11/2018 GARO PEMBERTON MD, Ot F17.2 10 NICOTINE DEPENDENCE, CIGARETTES, UNCOMPL 08/11/2018 GARO PEMBERTON MD, Ot R10.3 1 RIGHT LOWER QUADRANT PAIN 08/11/2018 GARO PEMBERTON MD, Ot R11.2 NAUSEA WITH VOMITING, UNSPECIFIED 08/11/2018 ENYART MD, GARO E Ot Z85.4 1 PERSONAL HISTORY OF MALIGNANT NEOPLASM O 08/11/2018 GARO PEMBERTON MD Ot Z87.1 9 PERSONAL HISTORY OF OTHER DISEASES OF TH 08/11/2018 GARO PEMBERTON MD Ot Z87.4 42 PERSONAL HISTORY OF URINARY CALCULI 08/11/2018 GARO PEMBERTON MD Ot Z88.1 ALLERGY STATUS TO OTHER ANTIBIOTIC AGENT 08/11/2018 GARO PEMBERTON MD Ot Z88.8 ALLERGY STATUS TO OTH DRUG/MEDS/BIOL SUB 08/11/2018 GARO PEMBERTON MD Ot Z90.7 10 ACQUIRED ABSENCE OF BOTH CERVIX AND UTER 08/11/2018 GARO PEMBERTON MD Ot Z98.5 1 TUBAL LIGATION STATUS 08/11/2018 GARO PEMBERTON MD, Ot Z98.8 90 OTHER SPECIFIED POSTPROCEDURAL STATES 09/24/2018 HIMA BAZAN DO Ot E11. 9 TYPE 2 DIABETES MELLITUS WITHOUT COMPLIC 09/24/2018 HIMA BAZAN DO Ot R07. 2 PRECORDIAL PAIN 09/24/2018 HIMA BAZAN DO Ot R07. 89 OTHER CHEST PAIN 09/24/2018 HIMA BAZAN DO Ot Z77. 22 CNTCT W AND EXPSR TO ENVIRON TOBACCO SMO 09/24/2018 HIMA BAZAN DO Ot Z85. 41 PERSONAL HISTORY OF MALIGNANT NEOPLASM O 09/24/2018 HIMA BAZAN DO Ot Z87. 19 PERSONAL HISTORY OF OTHER DISEASES OF 09/24/2018 HIMA BAZAN DO Ot Z87.442 PERSONAL HISTORY OF URINARY CALCULI 09/24/2018 HIMA BAZAN DO Ot Z88. 1 ALLERGY STATUS TO OTHER ANTIBIOTIC AGENT 09/24/2018 HIMA BAZAN DO Ot Z88. 5 ALLERGY STATUS TO NARCOTIC AGENT STATUS 09/24/2018 HIMA BAZAN DO Ot Z90.710 ACQUIRED ABSENCE OF BOTH CERVIX AND UTER 09/24/2018 HIMA BAZAN DO Ot Z98. 51 TUBAL LIGATION STATUS 12/11/2018 GARO PEMBERTON MD Ot E11.9 TYPE 2 DIABETES MELLITUS WITHOUT COMPLIC 12/11/2018 GARO PEMBERTON MD Ot M43.0 2 SPONDYLOLYSIS, CERVICAL REGION 12/11/2018 GARO PEMBERTON MD Ot M54.1 2 RADICULOPATHY, CERVICAL REGION 12/11/2018 GARO PEMBERTON MD, Ot R07.9 CHEST PAIN, UNSPECIFIED 12/11/2018 GARO PEMBERTON MD, Ot R51 HEADACHE 12/11/2018 GARO PEMBERTON MD, Ot Z77.2 2 CNTCT W AND EXPSR TO ENVIRON TOBACCO SMO 12/11/2018 GARO PEMBERTON MD, Ot Z85.4 1 PERSONAL HISTORY OF MALIGNANT NEOPLASM O 12/11/2018 GARO PEMBERTON MD, Ot Z87.4 42 PERSONAL HISTORY OF URINARY CALCULI 12/11/2018 GARO PEMBERTON MD, Ot Z88.1 ALLERGY STATUS TO OTHER ANTIBIOTIC AGENT 12/11/2018 GARO PEMBERTON MD, Ot Z88.5 ALLERGY STATUS TO NARCOTIC AGENT STATUS 12/11/2018 GARO PEMBERTON MD Ot Z90.7 10 ACQUIRED ABSENCE OF BOTH CERVIX AND UTER 12/11/2018 GARO PEMBERTON MD, Ot Z98.5 1 TUBAL LIGATION STATUS 03/08/2019 GARO PEMBERTON MD Ot E11.9 TYPE 2 DIABETES MELLITUS WITHOUT COMPLIC 03/08/2019 GARO PEMBERTON MD, Ot M79.6 72 PAIN IN LEFT FOOT 03/08/2019 GARO PEMBERTON MD, Ot S90.32XA CONTUSION OF LEFT FOOT, INITIAL ENCOUNTE 03/08/2019 GARO PEMBERTON MD, Ot S92.352P DISP FX OF 5TH METATARSAL BONE, L FT, CORBIN 03/08/2019 GAOR PEMBERTON MD, Ot W23.1XXA CAUGHT, CRUSH, JAMMED, OR PINCHED BETW S 03/08/2019 GARO PEMBERTON MD, Ot Z85.4 1 PERSONAL HISTORY OF MALIGNANT NEOPLASM O 03/08/2019 GARO PEMBERTON MD, Ot Z87.1 9 PERSONAL HISTORY OF OTHER DISEASES OF TH 03/08/2019 GARO PEMBERTON MD, Ot Z87.4 42 PERSONAL HISTORY OF URINARY CALCULI 03/08/2019 GARO PEMBERTON MD, Ot Z88.1 ALLERGY STATUS TO OTHER ANTIBIOTIC AGENT 03/08/2019 GARO PEMBERTON MD, Ot Z88.8 ALLERGY STATUS TO OTH DRUG/MEDS/BIOL SUB 03/08/2019 GARO PEMBERTON MD, Ot Z90.7 10 ACQUIRED ABSENCE OF BOTH CERVIX AND UTER 03/08/2019 ENYART MD, GARO E Ot Z98.5 1 TUBAL LIGATION STATUS 03/24/2019 HENDERSON DO, PIOTR Ot E11.9 TYPE 2 DIABETES MELLITUS WITHOUT COMPLIC 03/24/2019 HENDERSON DO, PIOTR Ot E66.9 OBESITY, UNSPECIFIED 03/24/2019 HENDERSON DO, PIOTR Ot E78.5 HYPERLIPIDEMIA, UNSPECIFIED 03/24/2019 HENDERSON DO, PIOTR Ot F17.21 0 NICOTINE DEPENDENCE, CIGARETTES, UNCOMPL 03/24/2019 HENDERSON DO, PIOTR Ot G43.90 9 MIGRAINE, UNSP, NOT INTRACTABLE, WITHOUT 03/24/2019 HENDERSON DO, PIOTR Ot R07.89 OTHER CHEST PAIN 03/24/2019 HENDERSON DO, PIOTR Ot Z68.37 BODY MASS INDEX (BMI) 37.0-37.9, ADULT 03/24/2019 HENDERSON DO, PIOTR Ot Z90.71 0 ACQUIRED ABSENCE OF BOTH CERVIX AND UTER 03/24/2019 HENDERSON DO, PIOTR Ot E11.9 TYPE 2 DIABETES MELLITUS WITHOUT COMPLIC 03/24/2019 HENDERSON DO, PIOTR Ot E66.9 OBESITY, UNSPECIFIED 03/24/2019 HENDERSON DO, PIOTR Ot E78.5 HYPERLIPIDEMIA, UNSPECIFIED 03/24/2019 HENDERSON DO, PIOTR Ot F17.21 0 NICOTINE DEPENDENCE, CIGARETTES, UNCOMPL 03/24/2019 HENDERSON DO, PIOTR Ot G43.90 9 MIGRAINE, UNSP, NOT INTRACTABLE, WITHOUT 03/24/2019 HENDERSON DO, PIOTR Ot R07.89 OTHER CHEST PAIN 03/24/2019 HENDERSON DO, PIOTR Ot Z68.37 BODY MASS INDEX (BMI) 37.0-37.9, ADULT 03/24/2019 HENDERSON DO, PIOTR Ot Z90.71 0 ACQUIRED ABSENCE OF BOTH CERVIX AND UTER 04/14/2019 HIMA BAZAN DO Ot E11. 9 TYPE 2 DIABETES MELLITUS WITHOUT COMPLIC 04/14/2019 HIMA BAZAN DO Ot R10. 13 EPIGASTRIC PAIN 04/14/2019 HIMA BAZAN DO Ot R19. 5 OTHER FECAL ABNORMALITIES 04/14/2019 HIMA BAZAN DO Ot Z85. 41 PERSONAL HISTORY OF MALIGNANT NEOPLASM O 04/14/2019 HIMA BAZAN DO Ot Z87. 19 PERSONAL HISTORY OF OTHER DISEASES OF TH 04/14/2019 HIMA BAZAN DO Ot Z88. 1 ALLERGY STATUS TO OTHER ANTIBIOTIC AGENT 04/14/2019 HIMA BAZAN DO Ot Z88. 8 ALLERGY STATUS TO OTH DRUG/MEDS/BIOL SUB Procedures There is no data. Results Test Result Range Serum or plasma creatinine measurement w ith calculation of estimated glomerular filtration rate - 06/13/18 09:25 Serum or plasma creatinine measurement (mass/volume) 0.57 mg/dL 0.60-1.30 Complete urinalysis with reflex to cultu re - 08/07/18 20:18 Urine color determination YELLOW NRG Urine clarity determination CLEAR NR G Urine pH measurement by test strip 6.0 5-9 Specific gravity of urine by test strip < 1.016-1.022 Urine protein assay by test strip, semi-quantitative NEGATIVE NEGATIVE Urine glucose detection by automated test strip NE GATIVE NEGATIVE Erythrocytes detection in urine sediment by light micr oscopy TRACE NEGATIVE Urine ketones detection by automated test strip NE GATIVE NEGATIVE Urine nitrite detection by test strip NEGATIVE NEGATIVE Urine total bilirubin detection by test strip NEGA TIVE NEGATIVE Urine urobilinogen measurement by automated test strip (mass/volume) 0.2 mg/dL NORMAL Urine leukocyte esterase detection by dipstick NEG ATIVE NEGATIVE Automated urine sediment erythrocyte cou nt by microscopy (number/high power field) RARE NRG Automated urine sediment leukocyte count by microscopy (number/high power field) NONE NRG Bacteria detection in urine sediment by light microsco py NONE NRG Squamous epithelial cells detection in u rine sediment by light microscopy 2-5 NRG Crystals detection in urine sediment by light microsco py NONE NRG Casts detection in urine sediment by light microscopy NONE NRG Mucus detection in urine sediment by light microscopy NEGATIVE NRG Complete urinalysis with reflex to culture NO NRG Urine beta human chorionic gonadotropin (hCG) measurement - 08/07/18 20:18 Urine beta human chorionic gonadotropin (hCG) measurem ent NEGATIVE NEGATIVE Complete blood count (CBC) with automate d white blood cell (WBC) differential - 08/07/18 20:27 Blood leukocytes automated count (number/volume) 9.9 10*3/uL 4.3-11.0 Blood erythrocytes automated count (number/volume) 4.25 10*6/uL 4.35-5.85 Venous blood hemoglobin measurement (mass/volume) 12.0 g/dL 11.5-16.0 Blood hematocrit (volume fraction) 37 % 35-52 Automated erythrocyte mean corpuscular volume 86 [ foz_us] 80-99 Automated erythrocyte mean corpuscular h emoglobin (mass per erythrocyte) 28 pg 25-34 Automated erythrocyte mean corpuscular h emoglobin concentration measurement (mass/volume) 33 g/dL 32-36 Automated erythrocyte distribution width ratio 13. 8 % 10.0- 14.5 Automated blood platelet count [...] 10*3 1.0-4.0 Blood monocytes automated count (number/volume) 0. 5 10*3 0.0-1.0 Automated eosinophil count 0.4 10*3/uL 0 .0-0.3 Automated blood basophil count (count/volume) 0.1 10*3/uL 0.0-0.1 Comprehensive metabolic panel - 08/07/18 20:27 Serum or plasma sodium measurement (moles/volume) 140 mmol/L 135-145 Serum or plasma potassium measurement (moles/volume) 3.7 mmol/L 3.6-5.0 Serum or plasma chloride measurement (moles/volume) 101 mmol/L 98-107 Carbon dioxide 24 mmol/L 21-32 Serum or plasma anion gap determination (moles/volume) 15 mmol/L 5-14 Serum or plasma urea nitrogen measurement (mass/volume ) 12 mg/dL 7-18 Serum or plasma creatinine measurement (mass/volume) 0.62 mg/dL 0.60-1.30 Serum or plasma urea nitrogen/creatinine mass ratio 19 NRG Serum or plasma creatinine measurement w ith calculation of estimated glomerular filtration rate > NRG Serum or plasma glucose measurement (mass/volume) 185 mg/dL 70-105 Serum or plasma calcium measurement (mass/volume) 9.5 mg/dL 8.5-10.1 Serum or plasma total bilirubin measurement (mass/volu me) 0.2 mg/dL 0.1-1.0 Serum or plasma alkaline phosphatase preeti surement (enzymatic activity/volume) 84 U/L 40-136 Serum or plasma aspartate aminotransfera se measurement (enzymatic activity/volume) 16 U/L 5-34 Serum or plasma alanine aminotransferase measurement (enzymatic activity/volume) 19 U/L 0-55 Serum or plasma protein measurement (mass/volume) 7.5 g/dL 6.4-8.2 Serum or plasma albumin measurement (mass/volume) 4.5 g/dL 3.2-4.5 CALCIUM CORRECTED 9.1 mg/dL 8.5-10.1 Lipase - 08/07/18 20:27 Lipase 22 U/L 8-78 Complete blood count (CBC) with automate d white blood cell (WBC) differential - 09/18/18 20:26 Blood leukocytes automated count (number/volume) 12.7 10*3/uL 4.3-11.0 Blood erythrocytes automated count (number/volume) 4.20 10*6/uL 4.35-5.85 Venous blood hemoglobin measurement (mass/volume) 12.0 g/dL 11.5-16.0 Blood hematocrit (volume fraction) 36 % 35-52 Automated erythrocyte mean corpuscular volume 86 [ foz_us] 80-99 Automated erythrocyte mean corpuscular h emoglobin (mass per erythrocyte) 29 pg 25-34 Automated erythrocyte mean corpuscular h emoglobin concentration measurement (mass/volume) 33 g/dL 32-36 Automated erythrocyte distribution width ratio 13. 3 % 10.0- 14.5 Automated blood platelet count (count/volume) 334 10*3/uL 130-400 Automated blood platelet mean volume measurement 8.9 [foz_us] 7.4-10.4 Automated blood neutrophils/100 leukocytes 60 % 42-75 Automated blood lymphocytes/100 leukocytes 31 % 12-44 Blood monocytes/100 leukocytes 4 % 0-12 Automated blood eosinophils/100 leukocytes 5 % 0-10 Automated blood basophils/100 leukocytes 1 % 0-10 Blood neutrophils automated count (number/volume) 7.6 10*3 1.8-7.8 Blood lymphocytes automated count (number/volume) 4.0 10*3 1.0-4.0 Blood monocytes automated count (number/volume) 0. 5 10*3 0.0-1.0 Automated eosinophil count 0.6 10*3/uL 0 .0-0.3 Automated blood basophil count (count/volume) 0.1 10*3/uL 0.0-0.1 Fibrin D-dimer FEU measurement in platel et poor plasma (mass/volume) - 09/18/18 20:26 Fibrin D-dimer FEU measurement in platelet poor plasma (mass/volume) 0.33 ug/mL 0.00-0.49 Serum or plasma troponin i.cardiac measu rement (mass/volume) - 09/18/18 20:26 Serum or plasma troponin i.cardiac measurement (mass/v olume) < ng/mL <0.30 PROBNP FS - 09/18/18 20:26 PROBNP FS 39.1 pg/mL <75.0 Comprehensive metabolic panel - 09/18/18 20:26 Serum or plasma sodium measurement (moles/volume) 141 mmol/L 135-145 Serum or plasma potassium measurement (moles/volume) 4.0 mmol/L 3.6-5.0 Serum or plasma chloride measurement (moles/volume) 99 mmol/L 98-107 Carbon dioxide 25 mmol/L 21-32 Serum or plasma anion gap determination (moles/volume) 17 mmol/L 5-14 Serum or plasma urea nitrogen measurement (mass/volume ) 13 mg/dL 7-18 Serum or plasma creatinine measurement (mass/volume) 0.70 mg/dL 0.60-1.30 Serum or plasma urea nitrogen/creatinine mass ratio 19 NRG Serum or plasma creatinine measurement w ith calculation of estimated glomerular filtration rate > NRG Serum or plasma glucose measurement (mass/volume) 144 mg/dL 70-105 Serum or plasma calcium measurement (mass/volume) 9.9 mg/dL 8.5-10.1 Serum or plasma total bilirubin measurement (mass/volu me) 0.2 mg/dL 0.1-1.0 Serum or plasma alkaline phosphatase preeti surement (enzymatic activity/volume) 77 U/L 40-136 Serum or plasma aspartate aminotransfera se measurement (enzymatic activity/volume) 19 U/L 5-34 Serum or plasma alanine aminotransferase measurement (enzymatic activity/volume) 19 U/L 0-55 Serum or plasma protein measurement (mass/volume) 7.5 g/dL 6.4-8.2 Serum or plasma albumin measurement (mass/volume) 4.4 g/dL 3.2-4.5 CALCIUM CORRECTED 9.6 mg/dL 8.5-10.1 Magnesium - 09/18/18 20:26 Magnesium 2.0 mg/dL 1.8-2.4 Myoglobin, serum - 09/18/18 20:26 Myoglobin, serum < ng/mL 10.0-92.0 Complete blood count (CBC) with automate d white blood cell (WBC) differential - 12/08/18 21:00 Blood leukocytes automated count (number/volume) 13.6 10*3/uL 4.3-11.0 Blood erythrocytes automated count (number/volume) 3.98 10*6/uL 4.35-5.85 Venous blood hemoglobin measurement (mass/volume) 11.1 g/dL 11.5-16.0 Blood hematocrit (volume fraction) 35 % 35-52 Automated erythrocyte mean corpuscular volume 87 [ foz_us] 80-99 Automated erythrocyte mean corpuscular h emoglobin (mass per erythrocyte) 28 pg 25-34 Automated erythrocyte mean corpuscular h emoglobin concentration measurement (mass/volume) 32 g/dL 32-36 Automated erythrocyte distribution width ratio 13. 5 % 10.0- 14.5 Automated blood platelet count (count/volume) 309 10*3/uL 130-400 Automated blood platelet mean volume measurement 8.8 [foz_us] 7.4-10.4 Automated blood neutrophils/100 leukocytes 66 % 42-75 Automated blood lymphocytes/100 leukocytes 26 % 12-44 Blood monocytes/100 leukocytes 4 % 0-12 Automated blood eosinophils/100 leukocytes 4 % 0-10 Automated blood basophils/100 leukocytes 0 % 0-10 Blood neutrophils automated count (number/volume) 9.0 10*3 1.8-7.8 Blood lymphocytes automated count (number/volume) 3.5 10*3 1.0-4.0 Blood monocytes automated count (number/volume) 0. 5 10*3 0.0-1.0 Automated eosinophil count 0.6 10*3/uL 0 .0-0.3 Automated blood basophil count (count/volume) 0.1 10*3/uL 0.0-0.1 PT panel in platelet poor plasma by coag ulation assay - 12/08/18 21:00 Prothrombin time (PT) in platelet poor plasma by coagu lation assay 13.0 s 12.2-14.7 INR in platelet poor plasma or blood by coagulation as say 0.9 0.8-1.4 Activated partial thromboplastin time (a PTT) in platelet poor plasma bycoagulation assay - 12/08/18 21:00 Activated partial thromboplastin time (a PTT) in platelet poor plasma bycoagulation assay 28 s 24-35 Comprehensive metabolic panel - 12/08/18 21:00 Serum or plasma sodium measurement (moles/volume) 139 mmol/L 135-145 Serum or plasma potassium measurement (moles/volume) 3.7 mmol/L 3.6-5.0 Serum or plasma chloride measurement (moles/volume) 106 mmol/L 98-107 Carbon dioxide 22 mmol/L 21-32 Serum or plasma anion gap determination (moles/volume) 11 mmol/L 5-14 Serum or plasma urea nitrogen measurement (mass/volume ) 7 mg/dL 7-18 Serum or plasma creatinine measurement (mass/volume) 0.53 mg/dL 0.60-1.30 Serum or plasma urea nitrogen/creatinine mass ratio 13 NRG Serum or plasma creatinine measurement w ith calculation of estimated glomerular filtration rate > NRG Serum or plasma glucose measurement (mass/volume) 254 mg/dL 70-105 Serum or plasma calcium measurement (mass/volume) 9.1 mg/dL 8.5-10.1 Serum or plasma total bilirubin measurement (mass/volu me) < mg/dL 0.1-1.0 Serum or plasma alkaline phosphatase preeti surement (enzymatic activity/volume) 68 U/L 40-136 Serum or plasma aspartate aminotransfera se measurement (enzymatic activity/volume) 18 U/L 5-34 Serum or plasma alanine aminotransferase measurement (enzymatic activity/volume) 19 U/L 0-55 Serum or plasma protein measurement (mass/volume) 6.6 g/dL 6.4-8.2 Serum or plasma albumin measurement (mass/volume) 3.8 g/dL 3.2-4.5 CALCIUM CORRECTED 9.3 mg/dL 8.5-10.1 Magnesium - 12/08/18 21:00 Magnesium 1.7 mg/dL 1.6-2.4 TROPONIN I FS - 12/08/18 21:00 TROPONIN I FS < 0.30 <0.30 PROBNP FS - 12/08/18 21:00 PROBNP FS 97.1 pg/mL <75.0 Complete blood count (CBC) with automate d white blood cell (WBC) differential - 03/23/19 20:02 Blood leukocytes automated count (number/volume) 8.9 10*3/uL 4.3-11.0 Blood erythrocytes automated count (number/volume) 4.31 10*6/uL 4.35-5.85 Venous blood hemoglobin measurement (mass/volume) 11.9 g/dL 11.5-16.0 Blood hematocrit (volume fraction) 37 % 35-52 Automated erythrocyte mean corpuscular volume 86 [ foz_us] 80-99 Automated erythrocyte mean corpuscular h emoglobin (mass per erythrocyte) 28 pg 25-34 Automated erythrocyte mean corpuscular h emoglobin concentration measurement (mass/volume) 32 g/dL 32-36 Automated erythrocyte distribution width ratio 13. 8 % 10.0- 14.5 Automated blood platelet count (count/volume) 308 10*3/uL 130-400 Automated blood platelet mean volume measurement 8.9 [foz_us] 7.4-10.4 Automated blood neutrophils/100 leukocytes 51 % 42-75 Automated blood lymphocytes/100 leukocytes 38 % 12-44 Blood monocytes/100 leukocytes 5 % 0-12 Automated blood eosinophils/100 leukocytes 5 % 0-10 Automated blood basophils/100 leukocytes 1 % 0-10 Blood neutrophils automated count (number/volume) 4.6 10*3 1.8-7.8 Blood lymphocytes automated count (number/volume) 3.4 10*3 1.0-4.0 Blood monocytes automated count (number/volume) 0. 5 10*3 0.0-1.0 Automated eosinophil count 0.4 10*3/uL 0 .0-0.3 Automated blood basophil count (count/volume) 0.1 10*3/uL 0.0-0.1 PT panel in platelet poor plasma by coag ulation assay - 03/23/19 20:02 Prothrombin time (PT) in platelet poor plasma by coagu lation assay 12.4 s 12.2-14.7 INR in platelet poor plasma or blood by coagulation as say 0.9 0.8-1.4 Activated partial thromboplastin time (a PTT) in platelet poor plasma bycoagulation assay - 03/23/19 20:02 Activated partial thromboplastin time (a PTT) in platelet poor plasma bycoagulation assay 28 s 24-35 Comprehensive metabolic panel - 03/23/19 20:02 Serum or plasma sodium measurement (moles/volume) 140 mmol/L 135-145 Serum or plasma potassium measurement (moles/volume) 3.6 mmol/L 3.6-5.0 Serum or plasma chloride measurement (moles/volume) 102 mmol/L 98-107 Carbon dioxide 23 mmol/L 21-32 Serum or plasma anion gap determination (moles/volume) 15 mmol/L 5-14 Serum or plasma urea nitrogen measurement (mass/volume ) 11 mg/dL 7-18 Serum or plasma creatinine measurement (mass/volume) 0.50 mg/dL 0.60-1.30 Serum or plasma urea nitrogen/creatinine mass ratio 22 NRG Serum or plasma creatinine measurement w ith calculation of estimated glomerular filtration rate > NRG Serum or plasma glucose measurement (mass/volume) 257 mg/dL 70-105 Serum or plasma calcium measurement (mass/volume) 9.3 mg/dL 8.5-10.1 Serum or plasma total bilirubin measurement (mass/volu me) < mg/dL 0.1-1.0 Serum or plasma alkaline phosphatase preeti surement (enzymatic activity/volume) 80 U/L 40-136 Serum or plasma aspartate aminotransfera se measurement (enzymatic activity/volume) 15 U/L 5-34 Serum or plasma alanine aminotransferase measurement (enzymatic activity/volume) 19 U/L 0-55 Serum or plasma protein measurement (mass/volume) 7.1 g/dL 6.4-8.2 Serum or plasma albumin measurement (mass/volume) 4.1 g/dL 3.2-4.5 CALCIUM CORRECTED 9.2 mg/dL 8.5-10.1 TROPONIN I FS - 03/23/19 20:02 TROPONIN I FS < 0.30 <0.30 PROBNP FS - 03/23/19 20:02 PROBNP FS 73.3 pg/mL <75.0 Complete blood count (CBC) with automate d white blood cell (WBC) differential - 03/24/19 05:23 Blood leukocytes automated count (number/volume) 10.1 10*3/uL 4.3-11.0 Blood erythrocytes automated count (number/volume) 3.94 10*6/uL 4.35-5.85 Venous blood hemoglobin measurement (mass/volume) 11.1 g/dL 11.5-16.0 Blood hematocrit (volume fraction) 34 % 35-52 Automated erythrocyte mean corpuscular volume 86 [ foz_us] 80-99 Automated erythrocyte mean corpuscular h emoglobin (mass per erythrocyte) 28 pg 25-34 Automated erythrocyte mean corpuscular h emoglobin concentration measurement (mass/volume) 33 g/dL 32-36 Automated erythrocyte distribution width ratio 14. 3 % 10.0- 14.5 Automated blood platelet count (count/volume) 298 10*3/uL 130-400 Automated blood platelet mean volume measurement 8.5 [foz_us] 7.4-10.4 Automated blood neutrophils/100 leukocytes 44 % 42-75 Automated blood lymphocytes/100 leukocytes 45 % 12-44 Blood monocytes/100 leukocytes 6 % 0-12 Automated blood eosinophils/100 leukocytes 5 % 0-10 Automated blood basophils/100 leukocytes 0 % 0-10 Blood neutrophils automated count (number/volume) 4.5 10*3 1.8-7.8 Blood lymphocytes automated count (number/volume) 4.5 10*3 1.0-4.0 Blood monocytes automated count (number/volume) 0. 6 10*3 0.0-1.0 Automated eosinophil count 0.5 10*3/uL 0 .0-0.3 Automated blood basophil count (count/volume) 0.0 10*3/uL 0.0-0.1 Comprehensive metabolic panel - 03/24/19 05:23 Serum or plasma sodium measurement (moles/volume) 141 mmol/L 135-145 Serum or plasma potassium measurement (moles/volume) 3.9 mmol/L 3.6-5.0 Serum or plasma chloride measurement (moles/volume) 110 mmol/L 98-107 Carbon dioxide 19 mmol/L 21-32 Serum or plasma anion gap determination (moles/volume) 12 mmol/L 5-14 Serum or plasma urea nitrogen measurement (mass/volume ) 10 mg/dL 7-18 Serum or plasma creatinine measurement (mass/volume) 0.65 mg/dL 0.60-1.30 Serum or plasma urea nitrogen/creatinine mass ratio 15 NRG Serum or plasma creatinine measurement w ith calculation of estimated glomerular filtration rate > NRG Serum or plasma glucose measurement (mass/volume) 159 mg/dL 70-105 Serum or plasma calcium measurement (mass/volume) 8.6 mg/dL 8.5-10.1 Serum or plasma total bilirubin measurement (mass/volu me) 0.1 mg/dL 0.1-1.0 Serum or plasma alkaline phosphatase preeti surement (enzymatic activity/volume) 67 U/L 40-136 Serum or plasma aspartate aminotransfera se measurement (enzymatic activity/volume) 16 U/L 5-34 Serum or plasma alanine aminotransferase measurement (enzymatic activity/volume) 21 U/L 0-55 Serum or plasma protein measurement (mass/volume) 6.4 g/dL 6.4-8.2 Serum or plasma albumin measurement (mass/volume) 3.7 g/dL 3.2-4.5 CALCIUM CORRECTED 8.8 mg/dL 8.5-10.1 Serum or plasma troponin i.cardiac measu rement (mass/volume) - 03/24/19 05:23 Serum or plasma troponin i.cardiac measurement (mass/v olume) < ng/mL <0.028 Serum or plasma troponin i.cardiac measu rement (mass/volume) - 03/24/19 11:55 Serum or plasma troponin i.cardiac measurement (mass/v olume) < ng/mL <0.028 Serum or plasma troponin i.cardiac measu rement (mass/volume) - 03/24/19 18:08 Serum or plasma troponin i.cardiac measurement (mass/v olume) < ng/mL <0.028 Complete urinalysis with reflex to cultu re - 04/10/19 16:40 Urine color determination YELLOW NRG Urine clarity determination CLEAR NR G Urine pH measurement by test strip 6.0 5-9 Specific gravity of urine by test strip <= 1.016-1.022 Urine protein assay by test strip, semi-quantitative NEGATIVE NEGATIVE Urine glucose detection by automated test strip NE GATIVE NEGATIVE Erythrocytes detection in urine sediment by light micr oscopy TRACE NEGATIVE Urine ketones detection by automated test strip NE GATIVE NEGATIVE Urine nitrite detection by test strip NEGATIVE NEGATIVE Urine total bilirubin detection by test strip NEGA TIVE NEGATIVE Urine urobilinogen measurement by automated test strip (mass/volume) 0.2 mg/dL < = 1.0 Urine leukocyte esterase detection by dipstick NEG ATIVE NEGATIVE Automated urine sediment erythrocyte cou nt by microscopy (number/high power field) [HPF] NRG Automated urine sediment leukocyte count by microscopy (number/high power field) [HPF] NRG Bacteria detection in urine sediment by light microsco py MODERATE NRG Squamous epithelial cells detection in u rine sediment by light microscopy 10-25 NRG Crystals detection in urine sediment by light microsco py NONE NRG Casts detection in urine sediment by light microscopy NONE NRG Mucus detection in urine sediment by light microscopy NEGATIVE NRG Complete urinalysis with reflex to culture NO NRG Complete blood count (CBC) with automate d white blood cell (WBC) differential - 04/10/19 17:00 Blood leukocytes automated count (number/volume) 8.5 10*3/uL 4.3-11.0 Blood erythrocytes automated count (number/volume) 4.21 10*6/uL 4.35-5.85 Venous blood hemoglobin measurement (mass/volume) 11.9 g/dL 11.5-16.0 Blood hematocrit (volume fraction) 36 % 35-52 Automated erythrocyte mean corpuscular volume 85 [ foz_us] 80-99 Automated erythrocyte mean corpuscular h emoglobin (mass per erythrocyte) 28 pg 25-34 Automated erythrocyte mean corpuscular h emoglobin concentration measurement (mass/volume) 33 g/dL 32-36 Automated erythrocyte distribution width ratio 13. 8 % 10.0- 14.5 Automated blood platelet count (count/volume) 332 10*3/uL 130-400 Automated blood platelet mean volume measurement 8.7 [foz_us] 7.4-10.4 Automated blood neutrophils/100 leukocytes 43 % 42-75 Automated blood lymphocytes/100 leukocytes 47 % 12-44 Blood monocytes/100 leukocytes 4 % 0-12 Automated blood eosinophils/100 leukocytes 6 % 0-10 Automated blood basophils/100 leukocytes 0 % 0-10 Blood neutrophils automated count (number/volume) 3.6 10*3 1.8-7.8 Blood lymphocytes automated count (number/volume) 4.0 10*3 1.0-4.0 Blood monocytes automated count (number/volume) 0. 4 10*3 0.0-1.0 Automated eosinophil count 0.5 10*3/uL 0 .0-0.3 Automated blood basophil count (count/volume) 0.0 10*3/uL 0.0-0.1 Comprehensive metabolic panel - 04/10/19 17:00 Serum or plasma sodium measurement (moles/volume) 139 mmol/L 135-145 Serum or plasma potassium measurement (moles/volume) 3.8 mmol/L 3.6-5.0 Serum or plasma chloride measurement (moles/volume) 100 mmol/L 98-107 Carbon dioxide 25 mmol/L 21-32 Serum or plasma anion gap determination (moles/volume) 14 mmol/L 5-14 Serum or plasma urea nitrogen measurement (mass/volume ) 9 mg/dL 7-18 Serum or plasma creatinine measurement (mass/volume) 0.49 mg/dL 0.60-1.30 Serum or plasma urea nitrogen/creatinine mass ratio 18 NRG Serum or plasma creatinine measurement w ith calculation of estimated glomerular filtration rate > NRG Serum or plasma glucose measurement (mass/volume) 138 mg/dL 70-105 Serum or plasma calcium measurement (mass/volume) 9.6 mg/dL 8.5-10.1 Serum or plasma total bilirubin measurement (mass/volu me) < mg/dL 0.1-1.0 Serum or plasma alkaline phosphatase preeti surement (enzymatic activity/volume) 76 U/L 40-136 Serum or plasma aspartate aminotransfera se measurement (enzymatic activity/volume) 16 U/L 5-34 Serum or plasma alanine aminotransferase measurement (enzymatic activity/volume) 24 U/L 0-55 Serum or plasma protein measurement (mass/volume) 7.2 g/dL 6.4-8.2 Serum or plasma albumin measurement (mass/volume) 4.2 g/dL 3.2-4.5 CALCIUM CORRECTED 9.4 mg/dL 8.5-10.1 Lipase - 04/10/19 17:00 Lipase 21 U/L 8-78 Complete blood count (CBC) with automate d white blood cell (WBC) differential - 08/31/19 18:58 Blood leukocytes automated count (number/volume) 9.1 10*3/uL 4.3-11.0 Blood erythrocytes automated count (number/volume) 4.11 10*6/uL 4.35-5.85 Venous blood hemoglobin measurement (mass/volume) 11.9 g/dL 11.5-16.0 Blood hematocrit (volume fraction) 35 % 35-52 Automated erythrocyte mean corpuscular volume 86 [ foz_us] 80-99 Automated erythrocyte mean corpuscular h emoglobin (mass per erythrocyte) 29 pg 25-34 Automated erythrocyte mean corpuscular h emoglobin concentration measurement (mass/volume) 34 g/dL 32-36 Automated erythrocyte distribution width ratio 12. 9 % 10.0- 14.5 Automated blood platelet count (count/volume) 296 10*3/uL 130-400 Automated blood platelet mean volume measurement 8.8 [foz_us] 7.4-10.4 Automated blood neutrophils/100 leukocytes 48 % 42-75 Automated blood lymphocytes/100 leukocytes 43 % 12-44 Blood monocytes/100 leukocytes 4 % 0-12 Automated blood eosinophils/100 leukocytes 4 % 0-10 Automated blood basophils/100 leukocytes 0 % 0-10 Blood neutrophils automated count (number/volume) 4.4 10*3 1.8-7.8 Blood lymphocytes automated count (number/volume) 3.9 10*3 1.0-4.0 Blood monocytes automated count (number/volume) 0. 4 10*3 0.0-1.0 Automated eosinophil count 0.3 10*3/uL 0 .0-0.3 Automated blood basophil count (count/volume) 0.0 10*3/uL 0.0-0.1 Comprehensive metabolic panel - 08/31/19 18:58 Serum or plasma sodium measurement (moles/volume) 141 mmol/L 135-145 Serum or plasma potassium measurement (moles/volume) 3.9 mmol/L 3.6-5.0 Serum or plasma chloride measurement (moles/volume) 105 mmol/L 98-107 Carbon dioxide 22 mmol/L 21-32 Serum or plasma anion gap determination (moles/volume) 14 mmol/L 5-14 Serum or plasma urea nitrogen measurement (mass/volume ) 11 mg/dL 7-18 Serum or plasma creatinine measurement (mass/volume) 0.61 mg/dL 0.60-1.30 Serum or plasma urea nitrogen/creatinine mass ratio 18 NRG Serum or plasma creatinine measurement w ith calculation of estimated glomerular filtration rate > NRG Serum or plasma glucose measurement (mass/volume) 112 mg/dL 70-105 Serum or plasma calcium measurement (mass/volume) 9.3 mg/dL 8.5-10.1 Serum or plasma total bilirubin measurement (mass/volu me) 0.2 mg/dL 0.1-1.0 Serum or plasma alkaline phosphatase preeti surement (enzymatic activity/volume) 65 U/L 40-136 Serum or plasma aspartate aminotransfera se measurement (enzymatic activity/volume) 17 U/L 5-34 Serum or plasma alanine aminotransferase measurement (enzymatic activity/volume) 19 U/L 0-55 Serum or plasma protein measurement (mass/volume) 6.9 g/dL 6.4-8.2 Serum or plasma albumin measurement (mass/volume) 4.0 g/dL 3.2-4.5 CALCIUM CORRECTED 9.3 mg/dL 8.5-10.1 TROPONIN I FS - 08/31/19 18:58 TROPONIN I FS < 0.30 <0.30 PROBNP FS - 08/31/19 18:58 PROBNP FS 10.6 pg/mL <75.0 PT panel in platelet poor plasma by coag ulation assay - 08/31/19 18:58 Prothrombin time (PT) in platelet poor plasma by coagu lation assay 12.5 s 12.2-14.7 INR in platelet poor plasma or blood by coagulation as say 0.9 0.8-1.4 Activated partial thromboplastin time (a PTT) in platelet poor plasma bycoagulation assay - 08/31/19 18:58 Activated partial thromboplastin time (a PTT) in platelet poor plasma bycoagulation assay 27 s 24-35 Fibrin D-dimer FEU measurement in platel et poor plasma (mass/volume) - 08/31/19 18:58 Fibrin D-dimer FEU measurement in platelet poor plasma (mass/volume) 0.28 ug/mL 0.00-0.49 Encounters ACCT No. Visit Date/Time Discharge Status Pt. Type Provider Facility Loc./Unit Complaint [id number] 04/10/2019 16:20:00 18:00:00 DIS Outpatient HIMA BAZAN DO [facility] ER FS BLOOD IN VOMIT/STOOL [id number] 03/23/2019 23:50:00 18:45:00 DIS Outpatient PIOTR HENDERSON DO [facility] 4TH CHEST PAIN/ACS R/O [id number] 03/11/2019 17:30:00 18:11:00 DIS Emergency CHIN TASHA PRESLEY [facility] ER FS RIGHT SHOULDER INJURY [id number] 03/08/2019 17:45:00 19:17:00 DIS Emergency GARO PEMBERTON MD [facility] ER FS LT FOOT PAIN [id number] 12/20/2018 23:19:00 23:57:00 DIS Emergency KENN LATIF, LIVIA Mead [facility] ER FS LT RIB/LT HIP/LT FOOT I [place] [id number] 12/08/2018 20:51:00 00:24:00 DIS Outpatient GARO PEMBERTON MD [facility] ER FS CHEST PAIN, DIZZY [id number] 11/13/2018 09:45:00 23:59:59 CLS Preadmit ANKIT WATSON [facility] CARD PALPITATIONS [id number] 09/18/2018 20:24:00 22:24:00 DIS Outpatient HIMA BAZAN DO [facility] ER FS CHEST PAIN [id number] 08/07/2018 19:58:00 22:55:00 DIS Outpatient GARO PEMBERTON MD [facility] ER FS NAUSEA, VOMITING, RT RI B PAIN, DIZZY [id number] 06/13/2018 08:09:00 23:59:59 CLS Outpatient ANKIT WATSON [facility] RAD FS ABD PAIN [id number] 08/31/2019 18:34:[address] Emergency HIMA BAZAN DO [facility] ER FS CHEST PAIN,NUMBNESS LEFT ARM
== END 2019-08-31 20:09 | disposition home or self-care (01) ==
LOC: EDUNIT# 18:33 → ER FS 18:34
DX: R07.89 Other chest pain (principal); R91.8 Other nonspecific abnormal finding of lung field; R20.2 Paresthesia of skin; E11.9 Type 2 diabetes mellitus without complications; Z79.891 Long term (current) use of opiate analgesic; Z77.22 Contact with and (suspected) exposure to environmental tobacco smoke (acute) (chronic); Z88.5 Allergy status to narcotic agent; Z88.1 Allergy status to other antibiotic agents; Z85.41 Personal history of malignant neoplasm of cervix uteri
CPT/HCPCS: 36415; 71045; 80053; 83880; 84484; 85025; 85379; 85610; 85730; 93005; 93041; 96374

== ENCOUNTER 2020-11-14 19:47 | Emergency (ER) | payer MEDICAID ==
[~2020-11-14] VITALS: Ht 154.9 cm; Wt 76.1 kg
[~2020-11-14 19:47] MED LIST changes: +AZIT250T12 PO; +SERT-414 PO; -SERT100T8 PO
--- OUTSIDE RECORDS SUMMARY | 2020-11-14 19:51 | XMS REPORT | Clinical Summary ---
Author Author [facility] Organization [facility] Address Unknown Phone Unavailable Care Team Providers Care Medical Imaging Technologist Name Role Phone SandroBri YAAKOV PCP Source Comments Some departments are not documenting in the electronic medical record. If you d o not see the information that you expected, contact Release of Information in [facility] Information Management department at [phone] for further assistan ce in locating additional records.[facility] Allergies Comments Active Allergy Reactions Severity Noted Date Meperidine HIVES Medium 02/22/2020 Fiberglass ITCHING Low 08/02/2020 Levofloxacin UNKNOWN Low 02/22/2020 Medications End Date Status Medication Sig Dispensed Refills Start Date Active rosuvastatin (CRESTOR) 10 Take 5 mg by 0 mg tablet mouth daily. Active iron,carb/vit C/vit Take 1 tablet 0 B12/folic (IRON 100 PLUS by mouth PO) daily. Iron 100mg / Vit C 250mg Active omeprazole DR (PRILOSEC) Take 20 mg by 0 20 mg capsule mouth daily before breakfast. Active dulaglutide (TRULICITY) Inject 1.5 mg 0 1.5 mg/0.5 mL injection under the pen skin every 7 days. Active HYDROcodone/acetaminophen Take 1 tablet 0 (NORCO) 7.5/325 mg tablet by mouth every 6 hours as needed for Pain Active alprazolam (XANAX PO) Take by 0 mouth as Needed. Active oxyCODONE/acetaminophen Take one 45 tablet 0 (PERCOCET) 5/325 mg tablet by 1 tabletIndications: pain mouth every 4-6 hours as needed for Pain Active Problems Problem Noted Date Adrenal nodule 06/27/2020 Encounters Care Team Description Date Type Specialty Rain Krishna MD 09/02/2020 Documentation Endocrinology, [place] [facility] Rain Krishna MD Records Request ([facility] Exam Rep ort) 08/30/2020 Telephone Diabetes Services Rain Krishna MD Elevated morning serum cortisol level (P rimary Dx) 08/23/2020 Orders Only Endocrinology, [place] [facility] 08/22/2020 Travel from Last 3 Months Surgical History Surgery Date Site/Laterality Comments HX HYSTERECTOMY 03/11/2014 - 03/10/2015 HX CHOLECYSTECTOMY 03/11/2008 - 03/10/2009 HX TUBAL LIGATION LAPAROSCOPY for endometriosis ANKLE SURGERY 07/13/2020 Ankle/Left LEFT REPAIR SEC ONDARY DISRUPTED LIGAMENT ANKLE - COLLATERAL performed by Marco A Pepper MD at [place] [address] [place] Medical devices from this surgery are i n the Implants section. LEG TENDON SURGERY 07/13/2020 Lower Leg/Left LEFT PERONE AL TENDON REPAIR performed by Marco A Pepper MD at [place] [address] [place] Medical devices from this surgery are i n the Implants section. TENDON REPAIR 07/13/2020 Ankle/Left LEFT SUPERIOR P ERONEAL RETINACULUM REPAIR WITH POSSIBLE GROOVE DEEPENING performed by Marco A Pepper MD at [place] [address] [place] Medical devices from this surgery are i n the Implants section. EXCISION BONE 07/13/2020 Toe/Left LEFT BONY EXOST OSIS REMOVAL FIFTH METATARSAL performed by Marco A Pepper MD at [place] [address] [place] Medical devices from this surgery are i n the Implants section. Medical History Medical History Date Comments Type II diabetes mellitus (HCC) GERD (gastroesophageal reflux disease) Hypertension Nephrolithiasis Genital herpes OCD (obsessive compulsive disorder) Depression with anxiety Hiatal hernia Insomnia Spinal stenosis Cervical cancer (HCC) Pulmonary hypertension (HCC) Endometriosis Non-alcoholic fatty liver disease Family History Medical History Relation Name Comments Diabetes Father Stroke Father Heart Disease Maternal Grandfather Stroke Maternal Grandmother Diabetes Mother Stroke Paternal Grandfather Stroke Paternal Grandmother Cancer-Thyroid Neg Hx Other Neg Hx pheochromocytoma Pituitary Tumor Neg Hx Relation Name Status Comments Father Maternal Grandfather Maternal Grandmother Mother Paternal Grandfather Paternal Grandmother Social History Date Tobacco Use Types Packs/Day Years Used Started: 2009 Current Every Day Smoker Cigarettes 0.5 Smokeless Tobacco: Never Used Comments Alcohol Use Standard Drinks/Week Never 0 (1 standard drink = 0.6 o z pure alcohol) Alcohol Habits Answer Date Recorded How often do you have a drink containing alcohol? Never 03/01/2020 How many drinks containing alcohol do you have on No t asked a typical day when you are drinking? How often do you have six or more drinks on one Not asked occasion? Comment: Not asked Sex Assigned at Date Recorded Female 07/11/2020 8:43 AM CDT Last Filed Vital Signs Reading Time Taken Comments Vital Sign 121/72 08/02/2020 4:28 PM CDT Blood Pressure 98 08/02/2020 4:28 PM CDT Pulse 36.5 C (97.7 F) 07/13/2020 11:11 AM CDT Temperature 16 08/02/2020 4:28 PM CDT Respiratory Rate 98% 08/02/2020 4:28 PM CDT Oxygen Saturation - - Inhaled Oxygen Concentration 76.2 kg (168 lb) 08/02/2020 4:28 PM CDT Weight 154.9 cm (5' 1") 08/02/2020 4:28 PM CDT Height 31.74 08/02/2020 4:28 PM CDT Body Mass Index Plan of Treatment Health Maintenance Due Date Last Done Comments HIV SCREENING 1993 DILATED EYE EXAM 01/17/1996 DTAP/TDAP VACCINES (1 - 01/17/1996 Tdap) FOOT EXAM 01/17/1996 HBA1C 01/17/1996 HEPATITIS C SCREENING 01/17/1996 MICROALBUMIN 01/17/1996 PHYSICAL (COMPREHENSIVE) 01/17/1996 EXAM PNEUMONIA VACCINE (DM) 01/17/1996 CERVICAL CANCER SCREENING 1999 BREAST CANCER SCREENING 2018 INFLUENZA VACCINE 12/09/2020 Implants Device Identifier Shelf Expiration Date Model / Serial / L ot Implanted Type Area Manufactur er 03/10/2025 [id number] / NA / [id number] Arthrex Internalbrace Peek Left: Ankle Implanted: Qty: 1 on 07/13/2020 by Marco A Pepper MD at [facility] C Results Not on filefrom Last 3 Months Insurance Type Payer Benefit Subscriber ID Effective Phone Address Plan / Dates Group AETNA MEDICAID AETNA [id number] BETTER [facility] [place] [address] 0 Advance Directives 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
[2020-11-14] MEDS ORDERED: ORPHENADRINE 60 MG/2 ML (NORFLEX) AMP (ED ONLY) IM STA (20:32)
--- NOTE | 2020-11-14 21:12 | ED General ---
General Chief Complaint: Chest Wall Stated Complaint: CP,LT SIDE RIB PAIN Nursing Triage Note: PT AMBULATE TO ROOM FS OF WITH C/O LEFT SIDE RIB PAIN. PT STATES THAT SHE WAS WRESTLING WITH KIDS AND ON SATURDAY AND PICKED HER UP FROM BEHIND CAUSING PAIN. Source of Information: Patient Exam Limitations: No Limitations History of Present Illness Date Seen by Provider: Nov 14, 2020 Time Seen by Provider: 20:28 Initial Comments Here with report of left-sided lower chest wall pain after wrestling with her spouse last Saturday, 5 days ago. She has been using her hydrocodone and ibuprofen for pain and that has not helped. She is worried that she may have broke a rib or something. Denies breathing problems but states it hurts when she takes a deep breath. Denies nausea, vomiting or weakness. Pain persistent since the time of injury. Timing/Duration: 5-6 Days Severity: Mild, Moderate Associated Systoms: Chest Pain (Left lower chest wall pain along the rib margin and near the xiphoid); No Fever/Chills, No Nausea/Vomiting, No Shortness of Air, No Weakness Allergies and Home Medications Allergies Coded Allergies: levofloxacin (Unverified Adverse Reaction, Intermediate, VOMITS BLOOD, 08/07/18) Uncoded Allergies: DEMEROL (Allergy, Severe, HIVES, 08/07/18) Patient Home Medication List Home Medication List Reviewed: Yes Azithromycin (Azithromycin) 250 Mg Tablet, 250 MG PO UD Prescribed by: HORTENSIA RABAGO on 08/31/192003 Dulaglutide (Trulicity) 0.75 Mg/0.5 Ml Pen.injctr, 0.75 MG SQ Th, (Reported) Entered as Reported by: LEANDRO JACKSON on 08/07/182046 Hydrocodone Bit/Acetaminophen (Lortab 5 Mg Tablet) 1 Each Tablet, 1 TAB PO Q8H PRN for PAIN-MODERATE (5-7), (Reported) Entered as Reported by: CHALO MONZON on 03/24/19 0853 Hydrocodone/Acetaminophen (Hydrocodone/Acetaminophen 5 MG/325 MG TAB) 1 Each Tablet, 1 TAB PO Q4-6HR Prescribed by: HORTENSIA RABAGO on 04/10/19 175 Ibuprofen (Advil) 200 Mg Tablet, 800 MG PO TID PRN for PAIN-MILD (1-4), (Reported) Entered as Reported by: CHALO MONZON on 03/24/19 08 Ondansetron (Ondansetron Odt) 4 Mg Tab.rapdis, 4 MG PO Q6H PRN for NAUSEA/V OMITING-1ST LINE Prescribed by: HORTENSIA RABAGO on 04/10/191751 Pantoprazole Sodium (Protonix) 40 Mg Tablet.dr, 40 MG PO DAILY Prescribed by: HORTENSIA RABAGO on 04/10/191751 Ranitidine HCl (Acid [employer] Service Technician (RANITIDINE)) 150 Mg Tablet, 150 MG PO DAILY, (Reported) Entered as Reported by: CHALO MONZON on 03/24/19852 Sertraline HCl (Sertraline HCl) 100 Mg Tablet, 100 MG PO DAILY, (Reported) Entered as Reported by: SYED SWANSON on 03/24/1931 Review of Systems Review of Systems Constitutional: No chills, No fever Respiratory: No cough, No dyspnea on exertion; other (Pain with deep breathing) Cardiovascular: see HPI, chest pain; No edema Gastrointestinal: No nausea, No vomiting Genitourinary: no symptoms reported Musculoskeletal: joint pain, muscle pain Skin: No change in color, No lesions Past Jipmzoi-Vyymzp-Qqzntt Hx Patient Social History Tobacco Use?: Yes Tobacco type used: Cigarettes Smoking Status: Current Everyday Smoker Smokeless Tobacco Frequency: Never a User Use of E-Cig and/or Vaping dev: No Substance use?: No Alcohol Use?: No Pt feels they are or have been: No Seasonal Allergies Seasonal Allergies: No Past Medical History Surgeries: Yes Abdominal, Gallbladder, Hysterectomy, 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 Respiratory: No 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 (ENLARGED RIGHT HEART-PFO) Neurological: No BEHAVIORAL HEALTH TECH History: Hysterectomy, 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 Genitourinary: Yes (RIGHT KIDNEY DEFORMITY) Kidney Stones Gastrointestinal: Yes (ENLARGED LIVER) Diverticulosis Musculoskeletal: No Endocrine: Yes Diabetes, Non-Insulin dep HEENT: No Cancer: Yes Cervical Did You Recieve Any Treatments: No What Type of Treatment Did You: Surgical Intervention Psychosocial: No Integumentary: No Blood Disorders: No Family Medical History Reviewed Nursing Family Hx Physical Exam Vital Signs Vital Signs - First Documented 11/14/20 19:58 Temp 36.3 Pulse 84 Resp 17 B/P (MAP) 94/60 (71) O2 Delivery Room Air Capillary Refill : Less Than 3 Seconds Height, Weight, BMI Height: 5'1.00" Weight: 182lbs. 0oz. 82.802122zz; 31.00 BMI Method:Stated General Appearance: No Apparent Distress, WD/WN Neck: Non Tender, Supple Respiratory: Lungs Clear, Normal Breath Sounds, Other (Tender to the left chest wall and area reported. No deformity, step-off or crepitus) Cardiovascular: Regular Rate, Rhythm, No Murmur Gastrointestinal: Non Tender, Soft Neurologic/Psychiatric: Alert, Oriented x3 Progress/Results/Core Measures Suspected Sepsis SIRS Temperature: Pulse: 84 Respiratory Rate: 17 Blood Pressure 94 /60 Mean: 71 Results/Orders My Orders Orders - BRIT BARTLETT MD Ribs/Unilateral With Chest (11/14/20 20:32) Orphenadrine Inj (Ed Only) (Norflex Inje (11/14/20 20:32) Vital Signs/I&O 11/14/20 19:58 Temp 36.3 Pulse 84 Resp 17 B/P (MAP) 94/60 (71) O2 Delivery Room Air Capillary Refill : Less Than 3 Seconds Blood Pressure Mean: 71 Progress Note : Progress Note Seen and evaluated. Evaluate for safety at home which patient states she is safe at home. She was concerned about a broken rib mostly. We will get chest x-ray and left lower rib series. Likely more musculoskeletal at this point. Norflex 60 mg IM given. She took ibuprofen 800 mg at 4 PM and hydrocodone today already. Monitor patient. 2113: No acute fractures noted. Discharged home with return precautions. Patient verbalized understanding instructions and agreement with plan. Diagnostic Imaging Diagonstic Imaging: Xray Plain Films/CT/US/NM/MRI: chest, other (Left ribs) Comments Chest x-ray and left ribs series shows no acute fracture. No obvious pneumothorax or infiltrate. Departure Impression Primary Impression: Contusion of rib on left side Qualified Codes: S20.212A - Contusion of left front wall of thorax, initial encounter Additional Impression: Muscle strain Disposition: HOME, SELF-CARE Condition: Improved Departure-Patient Inst. Decision time for Depature: 21:15 Referrals: [facility] (PCP) Primary Care Physician ANKIT WATSON (Family) Primary Care Physician Patient Instructions: Muscle Strain (DC), Bruised Rib Add. Discharge Instructions: All discharge instructions reviewed with patient and/or family. Voiced understanding. Continue medications as previously prescribed. You may take ibuprofen 800 mg every 8 hours as needed for pain. You may use [id number] Icy Hot with lidocaine patches, Aspercreme with lidocaine patches, Salonpas with lidocaine patches or similar items to area of concern per package directions. Follow-up with your doctor tomorrow for recheck and further evaluation. Return for worse pain, fever, vomiting, weakness, breathing problems or other concerns as needed. BRIT BARTLETT MD Nov 14, 2020 21:12
[2020-11-14 21:19] VITALS: BP 133/71
--- NOTE | 2020-11-14 21:37 | Diagnostic Imaging Report ---
INDICATION: Left rib pain. COMPARISON: 08/31/2019. TECHNIQUE: PA chest with 2 views of the left ribs. FINDINGS: Lungs are clear. No pleural effusion or pneumothorax. Normal heart size. There is no acute fracture in the left ribs. No expansile lytic lesion is seen within the left ribs. IMPRESSION: 1. No acute cardiopulmonary process. 2. No displaced fracture in the left ribs. Dictated by: Dictated on workstation # [id number]
== END 2020-11-14 21:19 | disposition home or self-care (01) ==
LOC: EDUNIT# 19:47 → ER FS 19:49
DX: S20.212A Contusion of left front wall of thorax, initial encounter (principal); E11.9 Type 2 diabetes mellitus without complications; F17.210 Nicotine dependence, cigarettes, uncomplicated; Y93.72 Activity, wrestling
CPT/HCPCS: 71101